=== PATIENT | female | born 1950 | race Caucasian/White ===

== ENCOUNTER 2017-03-12 10:21 | Emergency (ER) | payer BC, MEDICARE ==
[~2017-03-12] VITALS: Ht 157.5 cm; Wt 62.7 kg
[2017-03-12] MEDS ORDERED: SIMV40TA2 PO (10:48)
[2017-03-12] MEDS ORDERED: SERT-155 PO (10:48)
[2017-03-12] MEDS ORDERED: LATA5OPD OU (10:48)
[2017-03-12] MEDS ORDERED: FURO20TA2 PO (10:48)
[2017-03-12] MEDS ORDERED: OMEP20CA3 PO (10:48)
[2017-03-12] MEDS ORDERED: LISI40TAB PO (10:48)
[2017-03-12] MEDS ORDERED: FENO145T PO (10:48)
[2017-03-12] MEDS ORDERED: METO1TAB33 PO (10:48)
[2017-03-12] MEDS ORDERED: METF500T4 PO (10:48)
[2017-03-12] MEDS ORDERED: MECLIZINE 25 MG TABLET PO ONE (11:00)
[2017-03-12] MEDS ORDERED: TETANUS/DIPHTHERIA TOX ADSORB ADULT 0.5ML SYR/VIAL (90714) IM ONE (11:00)
[2017-03-12] MEDS ORDERED: NS 500 ML IV ONE (11:00)
[2017-03-12] MEDS ORDERED: ONDANSETRON 4MG/2ML VIAL (J2405) IV ONE ×2 (11:15→12:15)
--- NOTE | 2017-03-12 11:25 | REP ---
CT of the brain without IV contrast: There are no comparisons. There is no subdural or epidural hematoma. There is no hemorrhage otherwise. There is no edema, mass effect or midline shift. The cortical stripe is unremarkable. There is mild diffuse volume loss. The visualized paranasal sinuses and mastoid air cells are clear. Impression: Negative emergency CT study of the brain. There is no subdural hematoma or other intracranial hemorrhage. There is mild diffuse volume loss. No mass effect or shift. Signed by Obey Tejeda MD 03/12/2017 11:16 A
--- NOTE | 2017-03-12 11:38 | REP ---
CT CERVICAL SPINE WITHOUT CONTRAST: HISTORY: Trauma. There is no acute fracture or subluxation. Disc bulges are present at the C2-3 and C6-7 levels. Disc bulges with associated osteophyte formation are present at the C3-4 through C5-6 levels. There is minimal narrowing of the spinal canal. Uncinate process and/or facet hypertrophy are present at the C2-3 through C7-T1 levels. These findings produce minimal to moderate narrowing of the neural foramina. The C3-4 through C6-7 intervertebral discs are decreased in height consistent with disc degeneration. Calcifications are present in the left tonsil. This is secondary to previous inflammatory disease. Several calcifications are present in the right thyroid lobe. The left thyroid lobe is normal in appearance. Calcified lymph nodes are present in the right internal jugular chain, supraclavicular area and posterior to the right thyroid lobe. IMPRESSION: 1. There is no acute fracture or subluxation. 2. There is cervical spondylosis at the C2-3 through C7-T1 levels. Signed by Peewee Barone MD 03/12/2017 12:13 P
--- NOTE | 2017-03-12 11:42 | REP ---
MAXILLOFACIAL CT WITHOUT CONTRAST: HISTORY: Trauma. Minimal mucosal thickening is present in the ethmoid, frontal and sphenoid sinuses. The remaining sinuses are clear. The osteomeatal units are patent. The middle and inferior nasal turbinates are partially paradoxical. There is yi bullosa of the middle nasal turbinates. There is mild deviation of the nasal septum to the right. A spur is present arising from the right side of the nasal septum. The spur abuts the right inferior nasal turbinate. The cribriform plate, medial cui of the orbits and optic canals are intact. The carotid canals form a segment of the posterolateral cui of the sphenoid sinus. The sphenoid sinus septum inserts into the right internal carotid canal wall. Calcifications are present in the left tonsil. This is secondary to previous inflammatory disease. Calcified lymph nodes are present in the right internal jugular chain. There is no fracture. IMPRESSION: Sinus mucosal thickening as described above. Signed by Peewee Barone MD 03/12/2017 12:14 P
[2017-03-12] MEDS ORDERED: ACETAMINOPHEN TAB 650MG DOSE (2X325MG) PO ONE (12:15)
[2017-03-12 12:23] LABS: BASO % 0.2 % (0.0-1.0); EOS % 0.1 % (0.0-3.0); IMMATURE GRANULOCYTE % 0.5 % (0-0); LYMPH # 0.9 10^3/uL (1.5-4.5); LYMPH % 7.7 % (24.0-44.0); MEAN CORPUSCULAR HEMOGLOBIN 30.5 pg (27.0-33.0); MEAN CORPUSCULAR HGB CONC 33.5 g/dl (32.0-36.5); MONO # 0.6 10^3/uL (0.0-0.8); MONO % 5.3 % (0.0-5.0); NEUTROPHILS # 9.6 10^3/uL (1.8-7.7); NEUTROPHILS % 86.2 % (36.0-66.0); PLATELET COUNT, AUTOMATED 233 10^3/uL (150-450); RED CELL DISTRIBUTION WIDTH 12.3 % (11.5-14.5); WHITE BLOOD COUNT 11.1 10^3/uL (4.0-10.0)
[2017-03-12 12:26] LABS: ADD MANUAL DIFFER NO; DIFF SLIDE NUMBER 203
[2017-03-12 12:54] LABS: ALBUMIN 3.4 GM/DL (3.2-5.2); ALBUMIN/GLOBULIN RATIO 1.36 (1.00-1.93); BILIRUBIN,DIRECT 0.2 MG/DL (0.0-0.2); BILIRUBIN,TOTAL 0.5 MG/DL (0.2-1.0); CALCIUM LEVEL 7.3 MG/DL (8.8-10.2); CREATININE FOR GFR 0.99 MG/DL (0.55-1.02); FREE T4 1.31 NG/DL (0.76-1.46); GLOMERULAR FILTRATION RATE 59.9 (>45); POTASSIUM SERUM 3.6 MEQ/L (3.5-5.1); TOTAL PROTEIN 5.9 GM/DL (6.4-8.2)
[2017-03-12] MEDS ORDERED: MECL-68 PO (15:19)
[2017-03-12 15:27] VITALS: BP 112/51
--- NOTE | 2017-03-13 07:50 | ECGEPIP ---
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
== END 2017-03-12 15:47 | disposition home or self-care (01) ==
LOC: EDBD 10:21 → M ED 10:21
DX: S01.01XA Laceration without foreign body of scalp, initial encounter (principal); H81.399 Other peripheral vertigo, unspecified ear; I10 Essential (primary) hypertension; W01.198A Fall on same level from slipping, tripping and stumbling with subsequent striking against other object, initial encounter; Y92.099 Unspecified place in other non-institutional residence as the place of occurrence of the external cause; Y93.01 Activity, walking, marching and hiking; Y99.9 Unspecified external cause status
CPT/HCPCS: 12001; 70450; 70486; 72125; 80048; 80076; 84439; 84443; 85025; 85730; 90471; 90714; 93005; 93041; 94760; 96361; 96374; 96376; 99285; J2405

== ENCOUNTER → 2017-07-31 | Outpatient (CLI) | payer MEDICARE | LOC: M RAD 14:10 | DX: R05 Cough (principal); R09.89 Other specified symptoms and signs involving the circulatory and respiratory systems | CPT/HCPCS: 71046 ==

== ENCOUNTER 2018-10-02 14:44 | Inpatient (IN) | payer MEDICARE ==
[~2018-10-02] VITALS: Ht 154.9 cm; Wt 60.9 kg
[2018-10-02 06:45] VITALS: BP 100/41
[~2018-10-02 14:44] MED LIST: FENO145T13 PO; FURO20TA2 PO; LATA0.0013 OU; LISI40TA PO; MECL-68 PO; METF500T4 PO; METO1TAB33 PO; OMEP20CA3 PO; SERT-155 PO; SIMV40TA2 PO
[2018-10-02] MEDS ORDERED: ACET-897 PO (15:23)
[2018-10-02 15:40] LABS: BASO # 0.1 10^3/uL (0.0-0.2); BASO % 0.4 % (0.0-1.0); EOS % 0.3 % (0.0-3.0); HEMATOCRIT 39.8 % (36.0-47.0); HEMOGLOBIN 12.7 g/dl (12.0-15.5); LYMPH # 1.8 10^3/uL (1.5-4.5); LYMPH % 15.1 % (24.0-44.0); MEAN CORPUSCULAR HGB CONC 31.9 g/dl (32.0-36.5); MEAN CORPUSCULAR VOLUME 87.7 fl (80.0-96.0); MONO # 0.8 10^3/uL (0.0-0.8); MONO % 6.9 % (0.0-5.0); NEUTROPHILS # 8.8 10^3/uL (1.8-7.7); NEUTROPHILS % 76.4 % (36.0-66.0); PLATELET COUNT, AUTOMATED 342 10^3/uL (150-450); RED BLOOD COUNT 4.54 10^6/uL (4.00-5.40); WHITE BLOOD COUNT 11.6 10^3/uL (4.0-10.0)
[2018-10-02] MEDS ORDERED: NS 1,000 ML IV ONE ×2 (16:00→16:15)
[2018-10-02 16:05] LABS: ALBUMIN 4.8 GM/DL (3.2-5.2); BILIRUBIN,DIRECT 0.2 MG/DL (0.0-0.2); BILIRUBIN,TOTAL 0.5 MG/DL (0.2-1.0); CALCIUM LEVEL 6.5 MG/DL (8.8-10.2); CREATININE FOR GFR 11.4 MG/DL (0.55-1.30); GLOMERULAR FILTRATION RATE 3.6 (>45); POTASSIUM SERUM 5.5 MEQ/L (3.5-5.1); TOTAL PROTEIN 7.8 GM/DL (6.4-8.2)
[2018-10-02] MEDS ORDERED: ACETAMINOPHEN TAB 650MG DOSE (2X325MG) PO ONE (16:45)
[2018-10-02] MEDS ORDERED: XALA0.007 OU (17:08)
[2018-10-02] MEDS ORDERED: METO200T28 PO (17:08)
[2018-10-02] MEDS ORDERED: ASPI81TA85 PO (17:10)
[2018-10-02] MEDS ORDERED: VITAD1000T PO (17:10)
[2018-10-02] MEDS ORDERED: C 50TAB PO (17:10)
[2018-10-02] MEDS ORDERED: GLUCAGON FOR INJ 1 MG VIAL (J1610) SC PRN (17:45)
[2018-10-02] MEDS ORDERED: DEXTROSE 50% 50 ML SYRINGE IV PRN (17:45)
[2018-10-02] MEDS ORDERED: GLUCOSE 4 GM CHEW TABLET PO PRN (17:45)
--- NOTE | 2018-10-02 18:00 | HPEPDOC ---
General Date of Admission Oct 02, 2018 at 17:07 Chief Complaint The patient is a 68-year-old female admitted with a reason for visit of Acute R enal Failure. History of Present Illness 68-year-old female with past medical history of hypertension, diabetes mellitus, dyslipidemia, GERD, and chronic lower extremity edema on diuretic therapy presents to the ER with a chief complaint of abdominal pain, nausea/vomiting/diarrhea, and weakness. The patient states that for the past 10 days she has been having intractable nausea/vomiting/diarrhea. She denies any fevers, chills, sick contacts, recent antibiotic use, hospitalization, or recent travel. Of note, the patient states that she continued to take her diuretic therapy, lisinopril, and metformin during this time while she was having diarrhea. Also of note, the patient states that she was recently 3 weeks ago started on spironolactone by her PCP, but notes that she stopped taking it approximately 2 weeks ago due to the diarrhea. In the ER, the patient was noted to be in acute renal failure. She will be admitted to the hospitalist service, and a consult has been placed to nephrology for further evaluation and management. Home Medications Scheduled Ascorbic Acid (Vitamin C) 500 Mg Tablet, 500 MG PO DAILY, (Reported) Aspirin (Aspir 81) 81 Mg Tablet.dr, 81 MG PO DAILY, (Reported) Fenofibrate Nanocrystallized (Fenofibrate) 145 Mg Tab, 145 MG PO DAILY, (Reported) Furosemide (Furosemide) 20 Mg Tab, 20 MG PO DAILY, (Reported) Latanoprost (Xalatan) 0.005% 2.5ML Drops, 1 DROP OU QHS, (Reported) Lisinopril (Lisinopril) 40 Mg Tab, 40 MG PO DAILY, (Reported) Metformin HCl (Metformin HCl ER) 500 Mg Tab, 1,000 MG PO BID, (Reported) Metoprolol Succinate (Metoprolol Succinate) 200 Mg Tab.er.24h, 200 MG PO QHS, (Reported) Omeprazole (Omeprazole) 20 Mg Cap, 20 MG PO DAILY, (Reported) Sertraline HCl (Sertraline HCl) 50 Mg Tab, 50 MG PO QHS, (Reported) Simvastatin (Simvastatin) 40 Mg Tab, 40 MG PO QHS, (Reported) Vitamin D (Vitamin D3) 1,000 Unit Tablet, 1,000 UNITS PO DAILY, (Reported) Scheduled PRN Acetaminophen (Tylenol Extra Strength) 500 Mg Tablet, 500 MG PO Q6H PRN for PAIN, (Reported) Allergies Coded Allergies: azithromycin (Verified Allergy, Unknown, 10/02/18) BREAKOUT Past Medical History Medical History As noted in HPI. Social History * Smoker: Denies Alcohol: Denies Drugs: denies A-FIB/CHADSVASC A-FIB History Current/History of A-Fib/PAF?: No Review of Systems Other systems 10 point review systems negative unless otherwise specified in HPI. Physical Examination General Exam: Positive: Alert, Cooperative, No Acute Distress ENT Exam: Positive: Atraumatic; Negative: Mucous membr. moist/pink (dry mucous membranes) Neck Exam: Negative: JVD Chest Exam: Positive: Clear to auscultation, Normal air movement Heart Exam: Positive: Rate Normal, Normal S1, Normal S2 Abdomen Exam: Positive: Soft, Tenderness (mild tenderness to deep palpation in the lower quadrants bilaterally. No rebound tenderness, guarding, or rigidity noted.) Extremity Exam: Negative: Tenderness Psych Exam: Positive: Oriented x 3 Vital Signs Vital Signs Date Time Temp Pulse Resp B/P (MAP) Pulse Ox O2 Delivery O2 Flow Rate FiO2 10/02/18 15:24 10/02/18 14:44 96.5 83 18 100 Room Air Laboratory Data Labs 24H Laboratory Tests 2 10/02/18 15:28: Immature Granulocyte % (Auto) 0.9, White Blood Count 11.6H, Red Blood Count 4.54, Hemoglobin 12.7, Hematocrit 39.8, Mean Corpuscular Volume 87.7, Mean Corpuscular Hemoglobin 28.0, Mean Corpuscular Hemoglobin Concent 31.9L, Red Cell Distribution Width 14.1, Platelet Count 342, Neutrophils (%) (Auto) 76.4H, Lymphocytes (%) (Auto) 15.1L, Monocytes (%) (Auto) 6.9H, Eosinophils (%) (Auto) 0.3, Basophils (%) (Auto) 0.4, Neutrophils # (Auto) 8.8H, Lymphocytes # (Auto) 1.8, Monocytes # (Auto) 0.8, Eosinophils # (Auto) 0.0, Basophils # (Auto) 0.1, Nucleated Red Blood Cells % (auto) 0.0, Anion Gap 18H, Glomerular Filtration Rate 3.6L, Calcium Level 6.5L, Aspartate Amino Transf (AST/SGOT) 33, Alanine Aminotransferase (ALT/SGPT) 28, Alkaline Phosphatase 45, Total Bilirubin 0.5, Direct Bilirubin 0.2, Total Creatine Kinase 383H, Total Protein 7.8, Albumin 4.8, Albumin/Globulin Ratio 1.60, Lipase 2265H 10/02/18 17:28: CBC/BMP Laboratory Tests 10/02/18 15:28 Red Blood Count 4.54, Mean Corpuscular Volume 87.7, Mean Corpuscular Hemoglobin 28.0, Mean Corpuscular Hemoglobin Concent 31.9 L, Red Cell Distribution Width 14.1, Neutrophils (%) (Auto) 76.4 H, Lymphocytes (%) (Auto) 15.1 L, Monocytes (%) (Auto) 6.9 H, Eosinophils (%) (Auto) 0.3, Basophils (%) (Auto) 0.4, Neutrophils # (Auto) 8.8 H, Lymphocytes # (Auto) 1.8, Monocytes # (Auto) 0.8, Eosinophils # (Auto) 0.0, Basophils # (Auto) 0.1 Microbiology Microbiology 10/02/18 Gastrointestinal Tract Panel (PCR), Received Pending Plan / VTE VTE Prophylaxis Ordered?: Yes Plan Plan Acute Renal Failure 2/2 Intractable N/V/D while concomitantly on NEREIDA- I/Metformin/Diuretic Therapy Serum Cr of 11 noted in the ER--patient denies history of underlying Kidney Disease. Serum Cr from 03/2017 was 0.99. We will hold Nephrotoxins CT Abd/Pel with no gross abnormalities of the Kidneys noted, we will await official report Renal U/S, Urine Lytes, UA ordered IVF Hydration ordered with Sodium Bicarbonate 150 meq as per Nephro We will repeat a BMP @ 10pm to follow up No acute indication for dialysis at this time as the patient is not volume overloaded, uremic, etc Nephrology on board Anion-gap Metabolic Acidosis 2/2 Acute Renal Failure, Diarrhea D5W/150 Meqs of Sodium Bicarb ordered We will repeat BMP @ 10pm Hyperkalemia 2/2 Above No EKG changes noted We will follow up Elevated Lipase Possibly underlying Pancreatitis vs Reactive--CT Abd/Pel pending Cont IVF Hydration as ordered We will follow up with the patient's clinical condition Diarrhea GI Panel ordered to r/o C. Diff We will follow up with CT Abd/Pel Leukocytosis likely Reactive Will hold off on any antibiotics at this time Diabetes Mellitus ISS ordered HTN Hold meds at this time 2/2 ARF Anxiety/Depression Cont Sertraline DVT Prophylaxis Heparin TERI HURST MD Oct 02, 2018 18:00
[2018-10-02 18:45] VITALS: BP 100/41
[2018-10-02] MEDS: SERTRALINE HCL 50 MG TAB PO SCH (19:52)
[2018-10-02] MEDS: HEPARIN SOD (PORCINE) 5000 UNITS/ML VIAL SC SCH (19:52)
--- NOTE | 2018-10-02 20:00 | ECGEPIP ---
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 Order Number: [id number] Reading MD: Rica Sifuentes Measurements Intervals [place] Rate: 79 P: 53 ME: 131 QRS: 39 QRSD: 125 T: 30 QT: 401 QTc: 461 Interpretive Statements SINUS RHYTHM RIGHT BUNDLE BRANCH BLOCK NEW 03/12/17 Electronically Signed On 10-02-2018 20:00:24 EDT by Rica Sifuentes
[2018-10-02] MEDS: SODIUM BICARBONATE 150 MEQ in D5W 1,000 ML IV SCH (20:02)
[2018-10-02] MEDS: HumaLOG INSULIN (NovoLOG) PER UNIT SC SCH (20:04)
[2018-10-02] MEDS ORDERED: CALCIUM GLUCONATE 1,000 MG in D5W MINI-BAG PLUS 100 ML IV ONE (20:15)
[2018-10-02 22:38] LABS: ALBUMIN 3.5 GM/DL (3.2-5.2); BILIRUBIN,TOTAL 0.4 MG/DL (0.2-1.0); CALCIUM LEVEL 5.5 MG/DL (8.8-10.2); CREATININE FOR GFR 11.3 MG/DL (0.55-1.30); GLOMERULAR FILTRATION RATE 3.6 (>45); POTASSIUM SERUM 5.1 MEQ/L (3.5-5.1); TOTAL PROTEIN 6.8 GM/DL (6.4-8.2)
[2018-10-02] MEDS ORDERED: CALCIUM CARBONATE 500 MG CHEW U/D PO ONE (23:30)
[2018-10-02 23:59] VITALS: BP 110/53
[2018-10-03] MEDS: CALCIUM GLUCONATE 1,000 MG in D5W MINI-BAG PLUS 100 ML IV SCH ×3 (01:00)
[2018-10-03 04:00] VITALS: BP 119/52
[2018-10-03 06:03] LABS: MEAN CORPUSCULAR HEMOGLOBIN 27.9 pg (27.0-33.0); MEAN CORPUSCULAR HGB CONC 32.1 g/dl (32.0-36.5); MEAN CORPUSCULAR VOLUME 86.8 fl (80.0-96.0); PLATELET COUNT, AUTOMATED 233 10^3/uL (150-450); WHITE BLOOD COUNT 10.8 10^3/uL (4.0-10.0)
[2018-10-03 06:07] LABS: HEMOGLOBIN 10.6 g/dl (12.0-15.5)
[2018-10-03 06:46] LABS: ALBUMIN 3.5 GM/DL (3.2-5.2); BILIRUBIN,TOTAL 0.5 MG/DL (0.2-1.0); CALCIUM LEVEL 6.4 MG/DL (8.8-10.2); CREATININE FOR GFR 11.4 MG/DL (0.55-1.30); GLOMERULAR FILTRATION RATE 3.6 (>45); MAGNESIUM LEVEL 0.3 MG/DL (1.8-2.4); POTASSIUM SERUM 4.3 MEQ/L (3.5-5.1); TOTAL PROTEIN 6.7 GM/DL (6.4-8.2)
[2018-10-03] MEDS ORDERED: MAGNESIUM OXIDE 400 MG TAB (MAG-OX) PO ONE (07:00)
--- NOTE | 2018-10-03 07:23 | REP ---
CT ABDOMEN AND PELVIS WITHOUT IV OR ORAL CONTRAST: HISTORY: Renal failure. Elevated lipase. 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 The lung bases are clear on axial CT images. There is no evidence of pleural effusion or upper abdominal ascites. The liver and the spleen are normal in size. Vascular calcification is noted. There are calcifications in the pancreatic head suggestive of chronic pancreatitis pattern. No cyst or mass lesion is seen. No retroperitoneal adenopathy is observed. There is extensive calcific plaquing of the abdominal aorta which is small. I suspect aortic stenosis. The common iliac arteries are quite small as well and show extensive calcific plaquing suggesting stenosis. The kidneys are morphologically intact. No retroperitoneal mass or adenopathy is seen. No obstructive gastrointestinal lesion is seen. There is a calcified uterine myoma seen. The calcification associated with this is 1.5 cm in diameter. No bladder lesion is seen. No other uterine mass is observed. No ovarian abnormality is seen. No abdominal wall defect is appreciated. There is a polypoid fat density lesion in the ascending colon consistent with a small benign colon lipoma. This measures 1.4 x 0.9 x 2.4 cm in diameter. The appendix is surgically absent. IMPRESSION: The kidneys are unremarkable. No evidence of obstruction. There is heavy vascular calcification in a diminutive abdominal aorta and common iliac arteries consistent with atherosclerotic disease with stenosis. There is a lipomas polyp of the ascending colon measuring 2.4 cm in greatest diameter noted incidentally. A densely calcified uterine myoma is noted as well. Electronically Signed by Eladio Alcala MD 10/03/2018 08:53 A
[2018-10-03] MEDS: MAG SULF 1GM/100ML (MAG RUN) 1 GM in APPROPRIATE DILUENT 1 EA IV SCH ×5 (07:27→16:50)
[2018-10-03 07:33] VITALS: BP 107/47
--- NOTE | 2018-10-03 07:45 | REPVR ---
EXAM: US Retroperitoneal Limited, Kidneys EXAM DATE/TIME: 10/03/2018 6:37 AM CLINICAL HISTORY: 68 years old, female; acute renal failure TECHNIQUE: Imaging protocol: Real-time ultrasound of the retroperitoneum with image documentation. Examination was focused on the kidneys. COMPARISON: CT ABD PELVIS W/O CONTRAST 10/02/2018 4:36 PM The report from this study was not available for review at the time of this interpretation. FINDINGS: Right kidney: The right kidney is normal in appearance and measures 12.8 cm x 5.5 cm x 6.1 cm. There is no renal cortical thinning. The renal cortical echogenicity is within normal limits. No renal lesion is seen. There is no hydronephrosis. No obvious stones are seen in the renal collecting system. Left kidney: The left kidney measures 13.4 cm x 4.5 cm x 6.8 cm. There is no renal cortical thinning. The renal cortical echogenicity is within normal limits. There is a 7 mm x 5 mm x 8 mm round echogenic lesion without internal vascularity in the cortex of the middle third of the left kidney, which is compatible with an angiomyolipoma on comparison with the CT scan on 10/02/2018. There is no hydronephrosis. No obvious stones are seen in the renal collecting system. Bladder: The partially distended urinary bladder is unremarkable. IMPRESSION: 1. No acute sonographic findings involving the kidneys. No hydronephrosis. 2. 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 Electronically signed by: Magen Woodson On 10/03/2018 07:45:28 AM
[2018-10-03 08:29] LABS: CHOLESTEROL LEVEL 153 MG/DL (<200); CHOLESTEROL RISK RATIO 6.954 (<5); HDL CHOLESTEROL 22 MG/DL (>40); HEMOGLOBIN A1c 6.9 %; NON-HDL-C 131 MG/DL; TRIGLYCERIDES LEVEL 566 MG/DL (<150)
[2018-10-03] MEDS ORDERED: VITAMIN D 1,000 INTERNATIONAL UNITS TABLET PO SCH (09:00)
[2018-10-03] MEDS: HEPARIN SOD (PORCINE) 5000 UNITS/ML VIAL SC SCH ×2 (09:31→20:43)
[2018-10-03] MEDS: ASPIRIN 81 MG ENTERIC TAB PO SCH (09:32)
[2018-10-03] MEDS: HumaLOG INSULIN (NovoLOG) PER UNIT SC SCH ×4 (09:32→20:43)
[2018-10-03 11:43] VITALS: BP 122/56
--- NOTE | 2018-10-03 11:51 | IPNPDOC ---
Subjective Date Seen The patient was seen on 10/03/18. Subjective Chief Complaint/HPI Patient seen and examined at the bedside. She reports that she feels better overall and does not have anymore abdominal pain or discomfort. She also tells me that her appetite is back. Though, she continues to endorse several episodes of diarrhea. Denies N/V. She also notes that she has not made much urine since being admitted. Objective Physical Examination General Exam: Positive: Alert, Cooperative, No Acute Distress ENT Exam: Positive: Atraumatic, Mucous membr. moist/pink Neck Exam: Negative: JVD Chest Exam: Positive: Clear to auscultation, Normal air movement Heart Exam: Positive: Rate Normal, Normal S1, Normal S2 Abdomen Exam: Positive: Soft; Negative: Tenderness Extremity Exam: Negative: Tenderness Psych Exam: Positive: Oriented x 3 Assessment /Plan Plan/VTE VTE Prophylaxis Ordered?: Yes Plan Acute Renal Failure 2/2 Intractable N/V/D while concomitantly on NEREIDA- I/Metformin/Diuretic Therapy Patient's Serum Cr remains elevated at 11.40, and she has not made any urine. Her serum potassium has come down, and her Calcium and Magnesium levels are being replaced. CT Abd/Pel and Renal U/S with no findings of obstruction Cont IVF Nephro on board for possible dialysis Non Anion-gap Metabolic Acidosis 2/2 Acute Renal Failure, Diarrhea D5W/150 Meqs of Sodium Bicarb IVF Hyperkalemia 2/2 Above, resolved Elevated Lipase Possibly underlying Pancreatitis vs Reactive--CT Abd/Pel pending Cont IVF Hydration as ordered We will follow up with the patient's clinical condition Diarrhea GI Panel negative Leukocytosis likely Reactive Will hold off on any antibiotics at this time Diabetes Mellitus ISS ordered HTN Hold meds at this time 2/2 ARF Anxiety/Depression Cont Sertraline DVT Prophylaxis Heparin SC Dispo--pending clinical improvement VS, I&O, 24H, Fishbone Vital Signs/I&O Vital Signs Date Time Temp Pulse Resp B/P (MAP) Pulse Ox O2 Delivery O2 Flow Rate FiO2 10/03/18 07:33 96.6 77 18 107/47 (67) 99 10/02/18 14:44 Room Air I&O- Last 24 Hours up to 6 AM 10/03/18 06:00 Intake Total 0 ml Balance 0 ml Laboratory Data 24H LABS Laboratory Tests 2 10/02/18 15:28: Immature Granulocyte % (Auto) 0.9, White Blood Count 11.6H, Red Blood Count 4.54, Hemoglobin 12.7, Hematocrit 39.8, Mean Corpuscular Volume 87.7, Mean Corpuscular Hemoglobin 28.0, Mean Corpuscular Hemoglobin Concent 31.9L, Red Cell Distribution Width 14.1, Platelet Count 342, Neutrophils (%) (Auto) 76.4H, Lymphocytes (%) (Auto) 15.1L, Monocytes (%) (Auto) 6.9H, Eosinophils (%) (Auto) 0.3, Basophils (%) (Auto) 0.4, Neutrophils # (Auto) 8.8H, Lymphocytes # (Auto) 1.8, Monocytes # (Auto) 0.8, Eosinophils # (Auto) 0.0, Basophils # (Auto) 0.1, Nucleated Red Blood Cells % (auto) 0.0, Anion Gap 18H, Glomerular Filtration Rate 3.6L, Calcium Level 6.5L, Aspartate Amino Transf (AST/SGOT) 33, Alanine Aminotransferase (ALT/SGPT) 28, Alkaline Phosphatase 45, Total Bilirubin 0.5, Direct Bilirubin 0.2, Total Creatine Kinase 383H, Total Protein 7.8, Albumin 4.8, Albumin/Globulin Ratio 1.60, Lipase 2265H 10/02/18 17:28: Lactic Acid Level 0.4 10/02/18 20:04: Bedside Glucose (Misc Panel) 81 10/02/18 21:57: Anion Gap 16, Glomerular Filtration Rate 3.6L, Calcium Level 5.5#*L, Aspartate Amino Transf (AST/SGOT) 31, Alanine Aminotransferase (ALT/SGPT) 27, Alkaline P hosphatase 37L, Total Bilirubin 0.4, Total Protein 6.8, Albumin 3.5#, Albumin/Globulin Ratio 1.06, Blood Urea Nitrogen 93H, Creatinine 11.30*H, Sodium Level 138, Potassium Level 5.1, Chloride Level 113H, Carbon Dioxide Level 9L 10/03/18 05:30: Nucleated Red Blood Cells % (auto) 0.0, Anion Gap 16, Glomerular Filtration Rate 3.6L, Blood Urea Nitrogen 93H, Creatinine 11.40*H, Sodium Level 138, Potassium Level 4.3, Chloride Level 110H, Carbon Dioxide Level 12L, Calcium Level 6.4#L, Aspartate Amino Transf (AST/SGOT) 32, Alanine Aminotransferase (ALT/SGPT) 27, Alkaline Phosphatase 37L, Total Bilirubin 0.5, Total Protein 6.7, Albumin 3.5, Magnesium Level 0.3*L, Albumin/Globulin Ratio 1.09 10/03/18 07:55: Estimated Mean Plasma Glucose 151H, Hemoglobin A1c 6.9, Triglycerides Level 566H, LDL Cholesterol , Total Cholesterol 153, Non-HDL Cholesterol (LDL + VLDL) 131, Total HDL Cholesterol 22L, Cholesterol/HDL Ratio 6.954H CBC/BMP Laboratory Tests 10/02/18 15:28 Red Blood Count 4.54, Mean Corpuscular Volume 87.7, Mean Corpuscular Hemoglobin 28.0, Mean Corpuscular Hemoglobin Concent 31.9 L, Red Cell Distribution Width 14.1, Neutrophils (%) (Auto) 76.4 H, Lymphocytes (%) (Auto) 15.1 L, Monocytes (%) (Auto) 6.9 H, Eosinophils (%) (Auto) 0.3, Basophils (%) (Auto) 0.4, Neutrophils # (Auto) 8.8 H, Lymphocytes # (Auto) 1.8, Monocytes # (Auto) 0.8, Eosinophils # (Auto) 0.0, Basophils # (Auto) 0.1 10/02/18 21:57 Calcium Level 5.5 #*L, Aspartate Amino Transf (AST/SGOT) 31, Alanine Aminotransferase (ALT/SGPT) 27, Alkaline Phosphatase 37 L, Total Bilirubin 0.4, Total Protein 6.8, Albumin 3.5 # 10/03/18 05:30 Red Blood Count 3.80 L, Mean Corpuscular Volume 86.8, Mean Corpuscular Hemoglob in 27.9, Mean Corpuscular Hemoglobin Concent 32.1, Red Cell Distribution Width 14.0, Calcium Level 6.4 #L, Aspartate Amino Transf (AST/SGOT) 32, Alanine Aminotransferase (ALT/SGPT) 27, Alkaline Phosphatase 37 L, Total Bilirubin 0.5, Total Protein 6.7, Albumin 3.5 Microbiology Microbiology 10/02/18 Gastrointestinal Tract Panel (PCR) - Final, Complete TERI SOTELO MD Oct 03, 2018 11:51
[2018-10-03 12:33] LABS: IONIZED CALCIUM 3.3 MG/DL (4.5-5.3)
[2018-10-03] MEDS ORDERED: CALCIUM GLUCONATE 1,000 MG in D5W MINI-BAG PLUS 100 ML IV ONE (13:00)
[2018-10-03 14:42] LABS: PHOSPHORUS LEVEL 8.7 MG/DL (2.5-4.9)
[2018-10-03 16:00] VITALS: BP 103/43
[2018-10-03] MEDS: SODIUM BICARBONATE 150 MEQ in D5W 1,000 ML IV SCH (16:50)
[2018-10-03] MEDS: ACETAMINOPHEN TAB 650MG DOSE (2X325MG) PO PRN (16:52)
[2018-10-03 18:40] LABS: ALBUMIN 3.3 GM/DL (3.2-5.2); CALCIUM LEVEL 6.1 MG/DL (8.8-10.2); CREATININE FOR GFR 11.1 MG/DL (0.55-1.30); GLOMERULAR FILTRATION RATE 3.7 (>45)
[2018-10-03 20:00] VITALS: BP 97/39
[2018-10-03] MEDS: CALCIUM ACETATE 667 MG GELCAP PO SCH (20:42)
[2018-10-03] MEDS: SERTRALINE HCL 50 MG TAB PO SCH (20:42)
[2018-10-03 23:39] VITALS: BP 116/45
[2018-10-04] VITALS (7 sets, daily range): BP systolic 102–131; BP diastolic 51–62
[2018-10-04] MEDS: SODIUM BICARBONATE 150 MEQ in D5W 1,000 ML IV SCH (00:12)
[2018-10-04] MEDS: LOPERAMIDE 2 MG CAP PO PRN ×2 (00:45→15:20)
[2018-10-04 06:25] LABS: HEMOGLOBIN 8.7 g/dl (12.0-15.5); MEAN CORPUSCULAR HEMOGLOBIN 28.3 pg (27.0-33.0); MEAN CORPUSCULAR HGB CONC 34.8 g/dl (32.0-36.5); MEAN CORPUSCULAR VOLUME 81.4 fl (80.0-96.0); PLATELET COUNT, AUTOMATED 180 10^3/uL (150-450); RED BLOOD COUNT 3.07 10^6/uL (4.00-5.40); WHITE BLOOD COUNT 4.8 10^3/uL (4.0-10.0)
[2018-10-04] MEDS: HumaLOG INSULIN (NovoLOG) PER UNIT SC SCH ×4 (07:30→20:57)
[2018-10-04 07:59] LABS: BILIRUBIN,TOTAL 0.6 MG/DL (0.2-1.0); GLOMERULAR FILTRATION RATE 4.1 (>45); POTASSIUM SERUM 3.6 MEQ/L (3.5-5.1); TOTAL PROTEIN 5.6 GM/DL (6.4-8.2)
[2018-10-04] MEDS: CALCIUM ACETATE 667 MG GELCAP PO SCH ×3 (08:00→18:38)
[2018-10-04 08:37] LABS: MAGNESIUM LEVEL 1.9 MG/DL (1.8-2.4)
[2018-10-04] MEDS ORDERED: LIDOCAINE 1% MDV 20ML VIAL As Ordered ONE (09:16)
[2018-10-04] MEDS ORDERED: BUPIVACAINE HCL 0.5% 10 ML VIAL As Ordered ONE (09:16)
[2018-10-04] MEDS ORDERED: HEPARIN SOD (PORCINE) 5000 UNITS/ML VIAL As Ordered ONE (09:17)
[2018-10-04] MEDS ORDERED: PROPOFOL 200 MG/20 ML VIAL As Ordered ONE (10:01)
[2018-10-04] MEDS ORDERED: MIDAZOLAM INJ 2 MG/2 ML VIAL (J2250) As Ordered ONE (10:01)
[2018-10-04] MEDS ORDERED: fentaNYL 100 MCG/2 ML INJECTION (J3010) As Ordered ONE (10:01)
--- NOTE | 2018-10-04 10:06 | ECHO ---
DATE OF STUDY: 10/03/2018 REFERRING PROVIDER: Jay Avery MD PATIENT LOCATION: Room 3228. REASON FOR THE ECHOCARDIOGRAM: Heart failure, unspecified. 2D MEASUREMENTS: IVS: 0.9 cm LV: 4.7 cm LVPW: 1.0 cm LA: 3.1 cm Aorta: 3.0 cm IVC: 1.6 cm DOPPLER MEASUREMENTS: Peak velocity across the aortic valve: 2.3 m/s Peak velocity across the LVOT: 1.6 m/s Peak gradient across the aortic valve: 22 mmHg Mean gradient across the aortic valve: 9 mmHg Mitral E: 0.87 Mitral A: 0.97 with a ratio of 0.9 Maximum tricuspid valve velocity: 2.9 m/s 2D COMMENTS: 1. Normal left ventricular size, wall thickness, and normal global left ventricular systolic function with a hyperdynamic left ventricle. The estimated left ventricular systolic ejection fraction is 70% to 75%. 2. Normal left atrium. Normal right atrium and right ventricle. 3. The atrial septum appeared to be normal without evidence of defect or shunt. 4. Normal aortic root. 5. Small pericardial effusion noted. No evidence of cardiac tamponade. 6. Calcified aortic valve was noted with probably minimally restricted leaflet motion. Could not rule out prior vegetations on the aortic valve. Could not rule out old vegetations on the aortic valve. Normal mitral valve, tricuspid valve, and pulmonic valve. The proximal pulmonary artery branches were not visualized. 7. The inferior vena cava was normal in size, central venous pressure is most likely normal. DOPPLER: It detects trace aortic regurgitation, trace to mild tricuspid regurgitation, and trace to mild pulmonic regurgitation. The calculated pulmonary artery systolic pressure varied between 30-40 mmHg. Abnormal relaxation pattern was noted across the mitral valve leaflets, as well as mitral valve anulus consistent with a delayed relaxation. IMPRESSION: 1. Normal global left ventricular systolic function with a hyperdynamic left ventricle. There are features of left ventricular diastolic dysfunction manifested by impaired relaxation. 2. Aortic valve sclerosis with trace aortic regurgitation and mild aortic stenosis. Could not rule out old vegetations on the aortic valve. 3. Trace mitral regurgitation. 4. Trace to mild tricuspid regurgitation with mild pulmonary hypertension. 5. Trace to small pericardial effusion noted, no evidence of cardiac tamponade. [facility]
[2018-10-04] MEDS ORDERED: ePHEDrine SULFATE 25 MG/5 ML(5MG/ML) SYRINGE As Ordered ONE (10:07)
[2018-10-04] MEDS ORDERED: ONDANSETRON 4MG/2ML VIAL (J2405) IV PRN (10:45)
[2018-10-04] MEDS ORDERED: fentaNYL 100 MCG/2 ML INJECTION (J3010) IV PRN (10:45)
[2018-10-04] MEDS: HEPARIN SOD (PORCINE) 5000 UNITS/ML VIAL SC SCH ×2 (11:50→20:57)
[2018-10-04] MEDS: ASPIRIN 81 MG ENTERIC TAB PO SCH (11:50)
[2018-10-04 12:12] LABS: PERCENT SATURATION 36.6 % (13.2-45.0)
--- NOTE | 2018-10-04 13:53 | CR ---
DATE OF CONSULTATION: 10/03/2018 REQUESTING PHYSICIAN: Dr. Jay Avery. REASON FOR CONSULTATION: Management of acute renal failure, metabolic acidosis and multiple electrolyte abnormalities. CHIEF COMPLAINT: The patient presented to the hospital with nausea, vomiting and diarrhea. HISTORY OF PRESENT ILLNESS: Latasha Lawton is a 68-year-old female with a past medical history of diabetes mellitus type 2, hypertension, chronic lower extremity edema. No significant past medical history of chronic kidney disease. She has a baseline creatinine of 0.9 as of 09/08/2016 in the hospital records. She presented to the hospital yesterday with intractable nausea, vomiting and diarrhea for almost 10 days. She denies any fevers and chills. She denies any dysuria or hematuria. She does report decreased urine output. The patient reports that almost 2 months ago, she was started on spironolactone for her lower extremity edema and ever since she was started on spironolactone she has not felt better. The patient was also receiving lisinopril, metformin furosemide. When patient was evaluated in the emergency room, she was found to be dry and dehydrated. She was in acute renal failure with a creatinine of 11.4. She was acidotic with a serum bicarbonate of 11 and a serum potassium of 5.5. The case was already discussed by the admitting physician yesterday with the on-call mowing machine operator. The decision was made to initially hydrate the patient and start the patient on IV bicarb fluids. Patient was admitted under the hospitalist service and nephrology service is seeing the patient for further management of renal failure and electrolyte abnormalities. I saw and evaluated the patient this morning at the bedside. The patient reports that since the time she came to the hospital about the IV fluids, she sees slightly better today as compared with yesterday. Her nausea and vomiting is better but she still continues to have loose stools at this point. There is no significant improvement in the renal function and the patient continues to be oliguric. PAST MEDICAL HISTORY: Past medical history of diabetes mellitus type 2. Hypertension. Hyperlipidemia. Lower extremity edema. PAST SURGICAL HISTORY: The patient reports history of appendectomy in the past. ALLERGIES: She is allergic to AZITHROMYCIN. FAMILY HISTORY: No significant family history of end-stage renal disease requiring hemodialysis. SOCIAL HISTORY: The patient is at home. She denies any illicit drug abuse or alcohol abuse. She does report history of smoking. REVIEW OF SYSTEMS: CONSTITUTIONAL: Patient reports feeling weak and tired. EYES: She denies any blurry vision, double vision. ENT: She denies any dysphagia or odynophagia CARDIOVASCULAR: She denies any chest pain or palpitation. RESPIRATORY: She denies any shortness of breath, cough or wheezing. GENITOURINARY (GI): She reports nausea, vomiting on arrival. She does report that to stools as well. GENITOURINARY: She reports decreased urine output. MUSCULOSKELETAL: She denies any muscle aches and pains. SKIN: She denies any rashes or ulcers. CENTRAL NERVOUS SYSTEM (CHAIR FINISHER): She denies any strokes of seizures HEMATOLOGY/ONCOLOGY: Denies any easy bleeding or bruising. ENDOCRINE: She does report history of diabetes mellitus type 2. All other review of systems is negative. PHYSICAL EXAMINATION: GENERAL: The patient is awake, alert, oriented times three laying in bed. VITAL SIGNS: Temperature is 97.3 degrees Fahrenheit. Blood pressure 103/43, pulse is 94, respiratory rate of 20, saturating 100% on room air. HEAD AND NECK EXAM: Extraocular muscles intact. Pupils are equally round and reactive to light. Mucous membranes are moist. Neck is supple. There is no jugular venous distention (JVD). CARDIOVASCULAR: S1, S2 regular rate. No edema of the bilateral lower extremities. RESPIRATORY: Chest is clear to auscultation bilaterally. Bilateral equal air entry. No rales or rhonchi. ABDOMEN: Soft. Hyperactive bowel sounds, nontender, nontender. No organomegaly. GENITOURINARY: Bladder is non palpable. Bedside bladder scan was done. There was less than 50 mL of urine. MUSCULOSKELETAL: No clubbing or cyanosis. Pulses are 2+. CENTRAL NERVOUS SYSTEM (CHAIR FINISHER): No focal deficits. Power is 5/5 in all extremities. SKIN: No rashes or ulcers. HOME MEDICATIONS: Patient home medications included: - vitamin C 500 mg by mouth daily - aspirin 81 mg daily - fenofibrate 145 mg daily - Lasix 20 mg by mouth daily. - She will also on spironolactone but she stopped taking it few days ago because of diarrhea. - She is on lisinopril 40 mg daily - metformin 1 gram by mouth twice a day - metoprolol succinate 200 mg by mouth daily - omeprazole 20 mg daily - sertraline 50 mg by mouth daily - simvastatin 40 mg daily - vitamin D 1000 units by mouth daily CURRENT INPATIENT MEDICATIONS: The patient's inpatient medications include: - IV calcium gluconate. - She is on IV sodium bicarbonate drip at 100 mL an hour. - She is getting IV magnesium sulfate - Tylenol as needed - aspirin 81 mg daily - heparin subcu - insulin sliding scale - Zoloft 50 mg by mouth daily - vitamin D which I have stopped at this point. LAB REVIEW: CBC showed WBC of 10.8, hemoglobin 10.6, platelets 233. Urinalysis showed it was cloudy, 1+ protein, no blood, 6 WBCs. Random creatinine was 376. BMP on arrival showed sodium 137, potassium 5.5, chloride 108, bicarb 11, BUN 99, creatinine 11.4, lactic acid 0.4, calcium of 6.5, albumin 4.8, lipase 2265. Repeat BMP today in the evening showed sodium 136, potassium 4 chloride 106, bicarbonate 12, BUN 90, creatinine is 11.1, calcium 6.1, ionized calcium 3.3, phosphorus 8, magnesium 1, albumin 3.3. Microbiology: GI panel was sent yesterday. It was negative. IMAGING: Renal ultrasound was done this morning, which showed no acute sonographic finding involving the kidneys. There was no hydronephrosis. 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 CT scan of the abdomen and pelvis was done yesterday which showed the kidneys are unremarkable. There is heavy calcification in the abdominal aorta and common iliac arteries. ASSESSMENT: 68-year-old female with history of hypertension, diabetes mellitus type 2 this admission with acute renal failure, high anion gap metabolic acidosis, hyperkalemia and diarrhea. PLAN: 1. Acute renal failure: According to our records in March 2017, her renal function was stable. Acute renal failure is most likely secondary to combination of diarrhea, use of angiotensin converting enzyme inhibitors (NEREIDA), metformin and diuretics at home. The patient was hydrated overnight. However, she continues to be oliguric. I do not seen any significant improvement of the renal function. If the patient does not start making urine but tomorrow morning, then I will get a catheter placed and start the patient on dialysis. 2. High anion gap metabolic acidosis: It is secondary to combination of diarrhea and renal failure. The patient is getting IV bicarb containing fluid at 100 mL an hour. If renal function does not improve then acidosis will be managed with hemodialysis. Continue the bicarb fluids at this point. 3. Hyperkalemia: It is secondary to renal failure and metabolic acidosis. Potassium level has improved after the administration of IV bicarb. Continue the low potassium diet. 4. Chronic kidney disease, mineral bone disease: The patient has hyperphosphatemia which is secondary to renal failure. I have started the patient on PhosLo two capsules by mouth three times a day with meals. 5. Hypocalcemia: It is secondary to renal failure and hyperphosphatemia. The patient was already given IV calcium gluconate by the primary team. I would avoid giving further IV calcium to this patient because of high phosphorus levels. I would improve her phosphorus level before giving her more potassium. 6. Hypomagnesemia: The patient was already being on IV magnesium sulfate. Magnesium level is slowly improving. 7. History of hypertension: The patient is actually hypotensive at this point. Avoid further use of NEREIDA inhibitors, angiotensin receptor blockers and diuretics at this time because of acute renal failure. 8. History of anxiety and depression: Okay to use home dose of Zoloft at this point. 9. Diabetes mellitus type 2: Continue insulin sliding scale. Avoid use of metformin at this point in renal failure. 10. Hyperlipidemia: She is not a candidate of use of fenofibrate in acute renal failure. If needed, she can continue the simvastatin. 11. Diarrhea: Unknown etiology at this point. GI panel has been negative. There is a possibility of uremic colitis. If there is no improvement in the renal function over the next 24 hours, I would have a low threshold to start this patient on dialysis. Thank you for involving me in the care of this patient. I should be happy to follow the patient along with you tomorrow morning. Total critical care time spent in the management of this patient this morning in the progressive care unit was 45 minutes. That does not include any procedures.
--- NOTE | 2018-10-04 14:05 | IPNPDOC ---
Subjective Date Seen The patient was seen on 10/04/18. Subjective Chief Complaint/HPI Patient seen and examined at the bedside. The patient reports that her diarrhea has resolved after receiving a dose of Imodium. She is scheduled to go for a permacath placement this a.m. She denies any other acute complaints at this time. Objective Physical Examination General Exam: Positive: Alert, Cooperative, No Acute Distress ENT Exam: Positive: Atraumatic, Mucous membr. moist/pink Neck Exam: Negative: JVD Chest Exam: Positive: Clear to auscultation, Normal air movement Heart Exam: Positive: Rate Normal, Normal S1, Normal S2 Abdomen Exam: Positive: Soft; Negative: Tenderness Extremity Exam: Negative: Tenderness Psych Exam: Positive: Oriented x 3 A-FIB/CHADSVASC A-FIB History Current/History of A-Fib/PAF?: No Assessment /Plan Plan/VTE VTE Prophylaxis Ordered?: Yes Plan Acute Renal Failure 2/2 Intractable N/V/D while concomitantly on NEREIDA- I/Metformin/Diuretic Therapy Patient's Serum Cr remains elevated at 10.0, however her UOP has increased today (400 cc's thus far) compared to yesterday (200 cc's) Serum Bicarb also improved with IVF Hydration Serum K stable Nephro on board for possible dialysis--permacath to be placed this AM Non Anion-gap Metabolic Acidosis 2/2 Acute Renal Failure, Diarrhea s/p IVF Hydration with D5W/150 Meqs of Sodium Bicarb Normocytic Anemia Likely 2/2 Hemodilutional effect, and Acute Renal Failure No overt bleeding noted Iron Studies wnl Patient asymptomatic with no indication for transfusion at this time Hyperkalemia 2/2 Above, resolved Diarrhea, resolved GI Panel negative Imodium prn Leukocytosis likely Reactive, resolved Diabetes Mellitus ISS ordered HTN Hold meds at this time 2/2 ARF Anxiety/Depression Cont Sertraline DVT Prophylaxis Heparin SC Dispo--pending clinical improvement VS, I&O, 24H, Fishbone Vital Signs/I&O Vital Signs Date Time Temp Pulse Resp B/P (MAP) Pulse Ox O2 Delivery O2 Flow Rate FiO2 10/04/18 11:30 97.7 71 18 110/53 (72) 98 10/02/18 14:44 Room Air I&O- Last 24 Hours up to 6 AM 10/04/18 06:00 Intake Total 2542 ml Output Total 200 ml Balance 2342 ml Laboratory Data 24H LABS Laboratory Tests 2 10/03/18 15:00: Urine Color JOSELYN, Urine Appearance CLOUDYH, Urine pH 5.0, Urine Specific Cutler 1.019, Urine Protein 1+H, Urine Glucose (UA) NEGATIVE, Urine Ketones TRACEH, Urine Blood NEGATIVE, Urine Nitrite NEGATIVE, Urine Bilirubin NEGATIVE, Urine Urobilinogen 0.2, Urine Leukocyte Esterase NEGATIVE, Urine WBC (Auto) 6H, Urine RBC (Auto) 2, Urine Hyaline Casts (Auto) 0, Urine Bacteria (Auto) NEGATIVE, Urine Squamous Epithelial Cells 0, Urine Mucus (Auto) SMALL, Urine Sperm (Auto) , Urine Random Creatinine 376.0 10/03/18 17:47: Blood Urea Nitrogen 90H, Creatinine 11.10*H, Sodium Level 136, Potassium Level 4.0, Chloride Level 106, Carbon Dioxide Level 12L, Anion Gap 18H, Glomerular Filtration Rate 3.7L, Calcium Level 6.1L, Phosphorus Level 8.0H, Albumin 3.3 10/03/18 18:04: Bedside Glucose (Misc Panel) 266H 10/03/18 20:27: Bedside Glucose (Misc Panel) 169H 10/04/18 05:47: Nucleated Red Blood Cells % (auto) 0.0, Anion Gap 15, Glomerular Filtration Rate 4.1L, Blood Urea Nitrogen 88H, Creatinine 10.00*H, Sodium Level 138, Potassium Level 3.6, Chloride Level 105, Carbon Dioxide Level 18L, Calcium Level 6.0L, Aspartate Amino Transf (AST/SGOT) 31, Alanine Aminotransferase (ALT/SGPT) 23, Alkaline Phosphatase 34L, Total Bilirubin 0.6, Total Protein 5.6L, Albumin 3.0L, Magnesium Level 1.9, Iron Level 147, Total Iron Binding Capacity 402, Transferrin % Saturation 36.6, Ferritin 162, Albumin/Globulin Ratio 1.15 10/04/18 11:11: Bedside Glucose (Misc Panel) 152H CBC/BMP Laboratory Tests 10/03/18 17:47 Anion Gap 18 H 10/04/18 05:47 Red Blood Count 3.07 L, Mean Corpuscular Volume 81.4, Mean Corpuscular Hemoglobi n 28.3, Mean Corpuscular Hemoglobin Concent 34.8, Red Cell Distribution Width 13.9, Calcium Level 6.0 L, Aspartate Amino Transf (AST/SGOT) 31, Alanine Aminotransferase (ALT/SGPT) 23, Alkaline Phosphatase 34 L, Total Bilirubin 0.6, Total Protein 5.6 L, Albumin 3.0 L Microbiology Microbiology 10/02/18 Gastrointestinal Tract Panel (PCR) - Final, Complete TERI SOTELO MD Oct 04, 2018 14:05
--- NOTE | 2018-10-04 14:15 | REP ---
FLUORO GUIDANCE, ONE VIEW: HISTORY: PermaCath placement. The patient is status post PermaCath placement. The catheter is present in the region of the superior vena cava and right atrium. Fluoro time 0.1 second. IMPRESSION: The patient is status post PermaCath placement. Electronically Signed by Peewee Barone MD 10/04/2018 02:20 P
[2018-10-04] MEDS: SERTRALINE HCL 50 MG TAB PO SCH (20:57)
[2018-10-05] MEDS: ACETAMINOPHEN TAB 650MG DOSE (2X325MG) PO PRN (00:07)
[2018-10-05 04:00] VITALS: BP 129/55
[2018-10-05 05:43] LABS: HEMATOCRIT 24.9 % (36.0-47.0); HEMOGLOBIN 8.3 g/dl (12.0-15.5); MEAN CORPUSCULAR HEMOGLOBIN 27.6 pg (27.0-33.0); MEAN CORPUSCULAR HGB CONC 33.3 g/dl (32.0-36.5); MEAN CORPUSCULAR VOLUME 82.7 fl (80.0-96.0); PLATELET COUNT, AUTOMATED 175 10^3/uL (150-450); RED BLOOD COUNT 3.01 10^6/uL (4.00-5.40)
[2018-10-05 06:06] LABS: BILIRUBIN,TOTAL 0.6 MG/DL (0.2-1.0); CALCIUM LEVEL 7.2 MG/DL (8.8-10.2); CREATININE FOR GFR 5.24 MG/DL (0.55-1.30); GLOMERULAR FILTRATION RATE 8.7 (>45); POTASSIUM SERUM 3.6 MEQ/L (3.5-5.1)
[2018-10-05 08:00] VITALS: BP 128/62
[2018-10-05] MEDS: ASPIRIN 81 MG ENTERIC TAB PO SCH (08:55)
[2018-10-05] MEDS: HumaLOG INSULIN (NovoLOG) PER UNIT SC SCH ×4 (08:55→21:31)
[2018-10-05] MEDS: CALCIUM ACETATE 667 MG GELCAP PO SCH ×3 (08:55→18:55)
[2018-10-05] MEDS: HEPARIN SOD (PORCINE) 5000 UNITS/ML VIAL SC SCH ×2 (08:56→21:31)
[2018-10-05 09:37] LABS: PTH INTACT 58.3 PG/ML (18.5-88.0)
[2018-10-05 09:45] LABS: HEPATITIS B SURFACE ANTIBODY NEGATIVE (POSITIVE)
[2018-10-05 09:57] LABS: HEPATITIS B SURFACE ANTIGEN NEGATIVE (NEGATIVE)
[2018-10-05] MEDS ORDERED: IRON SUCROSE 100MG 5ML VIAL (J1756 PER 1MG) IV SCH (10:15)
[2018-10-05] MEDS ORDERED: DARBEPOETIN 100 MCG/0.5 ML *DIALYSIS* SYRINGE (J0882) IV SCH (10:15)
[2018-10-05 10:23] LABS: HEPATITIS C VIRUS ABY INDEX < 0.0 INDEX (<0.8)
[2018-10-05 10:26] LABS: HEPATITIS B CORE ANTIBODY IGM NEGATIVE (NEGATIVE)
[2018-10-05 10:42] LABS: PHOSPHORUS LEVEL 4.8 MG/DL (2.5-4.9)
[2018-10-05 12:00] VITALS: BP 151/62
--- NOTE | 2018-10-05 12:17 | IPNPDOC ---
Subjective Date Seen The patient was seen on 10/05/18. Subjective Chief Complaint/HPI Patient seen and examined at the bedside. Reports that she is feeling better today after being dialyzed yesterday. Denies any complaints of nausea, vomiting, or abdominal pain. Reports that she continues to have some diarrhea, but notes that it is improved overall. Objective Physical Examination General Exam: Positive: Alert, Cooperative, No Acute Distress ENT Exam: Positive: Atraumatic, Mucous membr. moist/pink Neck Exam: Negative: JVD Chest Exam: Positive: Clear to auscultation, Normal air movement Heart Exam: Positive: Rate Normal, Normal S1, Normal S2 Abdomen Exam: Positive: Soft; Negative: Tenderness Extremity Exam: Negative: Tenderness Psych Exam: Positive: Oriented x 3 A-FIB/CHADSVASC A-FIB History Current/History of A-Fib/PAF?: No Assessment /Plan Plan/VTE VTE Prophylaxis Ordered?: Yes Plan Acute Renal Failure 2/2 Intractable N/V/D while concomitantly on NEREIDA- I/Metformin/Diuretic Therapy s/p Permacath placement on 10/04, with first session of HD Nephrology on board for further mgmt of dialysis Non Anion-gap Metabolic Acidosis 2/2 Acute Renal Failure, Diarrhea, resolved Normocytic Anemia Likely 2/2 Hemodilutional effect, and Acute Renal Failure No overt bleeding noted Iron Studies wnl Patient asymptomatic with no indication for transfusion at this time Hyperkalemia 2/2 Above, resolved Diarrhea, resolved GI Panel negative Imodium prn Leukocytosis likely Reactive, resolved Diabetes Mellitus ISS ordered HTN Hold meds at this time 2/2 ARF Anxiety/Depression Cont Sertraline DVT Prophylaxis Heparin SC Dispo--pending clinical improvement VS, [facility]O, [facility] Vital Signs/I&O Vital Signs Date Time Temp Pulse Resp B/P (MAP) Pulse Ox O2 Delivery O2 Flow Rate FiO2 10/05/18 08:00 96.4 67 16 128/62 (84) 100 10/02/18 14:44 Room Air I&O- Last 24 Hours up to 6 AM 10/05/18 06:00 Intake Total 950 ml Output Total 405 ml Balance 545 ml Laboratory Data 24H LABS Laboratory Tests 2 10/04/18 14:53: Bedside Glucose (Misc Panel) 103 10/04/18 18:02: Bedside Glucose (Misc Panel) 124H 10/04/18 20:53: Bedside Glucose (Misc Panel) 217H 10/05/18 05:22: Nucleated Red Blood Cells % (auto) 0.0, Anion Gap 7L, Glomerular Filtration Rate 8.7L, Blood Urea Nitrogen 50H, Creatinine 5.24H, Sodium Level 140, Potassium Level 3.6, Chloride Level 111H, Carbon Dioxide Level 22, Calcium Level 7.2#L, Phosphorus Level 4.8#, Aspartate Amino Transf (AST/SGOT) 32, Alanine Aminotransferase (ALT/SGPT) 27, Alkaline Phosphatase 36L, Total Bilirubin 0.6, Total Protein 6.0L, Albumin 3.0L, Albumin/Globulin Ratio 1.00 10/05/18 11:55: Bedside Glucose (Misc Panel) 126H CBC/BMP Laboratory Tests 10/05/18 05:22 Red Blood Count 3.01 L, Mean Corpuscular Volume 82.7, Mean Corpuscular Hemoglobin 27.6, Mean Corpuscular Hemoglobin Concent 33.3, Red Cell Distribution Width 14.0, Calcium Level 7.2 #L, Phosphorus Level 4.8 #, Aspartate Amino Transf (AST/SGOT) 32, Alanine Aminotransferase (ALT/SGPT) 27, Alkaline Phosphatase 36 L, Total Bilirubin 0.6, Total Protein 6.0 L, Albumin 3.0 L Microbiology Microbiology 10/02/18 Gastrointestinal Tract Panel (PCR) - Final, Complete TERI OSTELO MD Oct 05, 2018 12:17
[2018-10-05 15:30] VITALS: BP 150/68
--- NOTE | 2018-10-05 19:04 | REP ---
BILATERAL UPPER EXTREMITY DUPLEX DOPPLER ARTERIAL AND VENOUS ULTRASOUND: Real-time ultrasound evaluation and duplex Doppler interrogation of bilateral upper extremity arterial and venous systems is performed for mapping for AV fistula placement. There is partial thrombosis of the right cephalic vein mid to distal aspect. There is left deep vein thrombosis involving the axillary and one of the paired brachial veins in its proximal to mid aspect, as well as in the left basilic veins diffusely. On the right the basilic vein measures 4 mm at the level of the humerus, 2 mm in the upper forearm, 1 mm in the lower forearm and wrist. Median cubital vein measures 6 mm. Right cephalic vein measures between 4 and 5 mm at the level of the humerus. Left upper extremity arterial structures demonstrate normal flow velocities with biphasic wave forms. Right axillary and brachial arteries measure 4 mm, right radial artery 1 mm and ulnar artery 2 mm. On the left the thrombosed basilic vein measures 3 mm at the upper humerus, 4 mm at the lower humerus, 2 mm in the upper forearm and 1 mm in the lower forearm and wrist. Left cephalic vein measures 2 mm at the level of the humerus and upper forearm and 1 mm in the lower forearm and wrist. Median cubital vein measures 3 mm, left axillary artery is not visualized. Left brachial artery demonstrates peak systolic velocity 200 cm/s. It measures 4 mm. Left radial artery measures 2 mm and ulnar artery 3 mm. Electronically Signed by Obey Ignacio MD 10/07/2018 10:12 A
[2018-10-05 20:00] VITALS: BP_SYST 135; BP_SYST 163; BP_DIAS 61; BP_DIAS 72
[2018-10-05] MEDS: SERTRALINE HCL 50 MG TAB PO SCH (21:31)
[2018-10-05 23:59] VITALS: BP 131/61
[2018-10-06 04:00] VITALS: BP 119/57
[2018-10-06 06:20] LABS: HEMATOCRIT 27.9 % (36.0-47.0); HEMOGLOBIN 8.5 g/dl (12.0-15.5); MEAN CORPUSCULAR HEMOGLOBIN 27.7 pg (27.0-33.0); MEAN CORPUSCULAR HGB CONC 30.5 g/dl (32.0-36.5); MEAN CORPUSCULAR VOLUME 90.9 fl (80.0-96.0); PLATELET COUNT, AUTOMATED 179 10^3/uL (150-450); RED BLOOD COUNT 3.07 10^6/uL (4.00-5.40); WHITE BLOOD COUNT 4.2 10^3/uL (4.0-10.0)
[2018-10-06 06:43] LABS: BILIRUBIN,TOTAL 0.3 MG/DL (0.2-1.0); CREATININE FOR GFR 2.53 MG/DL (0.55-1.30); GLOMERULAR FILTRATION RATE 20.2 (>45)
[2018-10-06 07:50] VITALS: BP 132/63
--- NOTE | 2018-10-06 09:23 | CR.PDOC ---
General Date of Consultation: Oct 06, [address] Kenny. HPI: 68-year-old female with h/ohronic lower extremity edema on diuretic therapy presented to the ER with a chief complaint of abdominal pain, nausea/vomitin g/diarrhea, and weakness. The patient states that for the [id number] days prior to admission was having intractable nausea/vomiting/diarrhea. She denies any fevers, chills, sick contacts, recent antibiotic use, hospitalization, or recent travel. Of note, the patient states that she continued to take her diuretic therapy, lisinopril, and metformin during this time while she was having diarrhea. The patient states that she was recently 3 weeks ago started on spironolactone by her PCP, but notes that she stopped taking it approximately 2 weeks ago due to the diarrhea. In the ER, the patient was noted to be in acute renal failure. She will be admitted to the hospitalist service, and a consult has been placed to vascular surgery for further evaluation for HD access. Denies any Headache, Chest Pain, Shortness of breath, cough, palpitations. PMHx: HTN DM HLD GERD depression SOCHX: Tobacco use: denies ETOH: denies Illicit Drugs: Denies FAMHX: non contributory ROS: As noted in HPI, otherwise 11pt ROS of systems reviewed and unremarkable. PE: GEN: 68yoF, appears stated age. Well-nourished, well developed. No acute distress. Alert and oriented x 3. Pleasant, interactive. HEENT: Normocephalic, atraumatic. Moist mucous membranes. CHEST: Regular rate and rhythm, +S1, +S2 LUNGS: Clear to auscultation bilaterally. No wheezes, rales, or rhonchi. Breathing appears symmetric and easy. Patient is speaking in full sentences. ABD: Round, soft, non-tender, non-distended. +Bowel sounds throughout. No rebound or guarding. No costovertebral angle tenderness. SKIN: [place], dry, warm. Capillary refill <2sec. No rashes. NEURO: Alert and oriented x 3. Cranial nerves III-XII are intact. No focal deficits appreciated. A&P: 68-year-old female with h/ohronic lower extremity edema on diuretic therapy presented to the ER with a chief complaint of abdominal pain, nausea/vomiting/diarrhea, and weakness. The patient states that for the [id number] days prior to admission was having intractable nausea/vomiting/diarrhea. She denies any fevers, chills, sick contacts, recent antibiotic use, hospitalization, or recent travel. Of note, the patient states that she continued to take her diuretic therapy, lisinopril, and metformin during this time while she was having diarrhea. The patient states that she was recently 3 weeks ago started on spironolactone by her PCP, but notes that she stopped taking it approximately 2 weeks ago due to the diarrhea. In the ER, the patient was noted to be in acute renal failure. She will be admitted to the hospitalist service, and a consult has been placed to vascular surgery for further evaluation for HD access. Acute Renal Failure 2/2 Intractable N/V/D while concomitantly on NEREIDA- I/Metformin/Diuretic Therapy s/p Permacath placement on 10/[address] Kenny. HD mgmt as per Nephrology Vein mapping requested for further evaluation of possible AVF creation. Normocytic Anemia Iron Studies wnl Diarrhea, resolved GI Panel negative Imodium prn Diabetes Mellitus SSI HTN Meds on hold at this time 2/2 ARF Mgmt as per primary team. Anxiety/Depression Sertraline DVT Prophylaxis Heparin SC Thank you for your consultation. We will continue to follow along with you. Vital Signs/I&O Vital Signs Date Time Temp Pulse Resp B/P (MAP) Pulse Ox O2 Delivery O2 Flow Rate FiO2 10/06/18 07:50 97.1 68 18 132/63 (86) 98 10/02/18 14:44 Room Air I&O- Last 24 Hours up to 6 AM 10/06/18 06:00 Intake Total 840 ml Output Total 1100 ml Balance -260 ml Laboratory Data Labs 24H Laboratory Tests 2 10/05/18 11:55: Bedside Glucose (Misc Panel) 126H 10/05/18 18:53: Bedside Glucose (Misc Panel) 101 10/05/18 21:23: Bedside Glucose (Misc Panel) 303H 10/06/18 05:57: Nucleated Red Blood Cells % (auto) 0.0, Anion Gap 8, Glomerular Filtration Rate 20.2L, Blood Urea Nitrogen 20#H, Creatinine 2.53#H, Sodium Level 141, Potassium Level 4.0, Chloride Level 111H, Carbon Dioxide Level 22, Calcium Level 8.0L, Aspartate Amino Transf (AST/SGOT) 34, Alanine Aminotransferase (ALT/SGPT) 28, Alkaline Phosphatase 37L, Total Bilirubin 0.3, Total Protein 6.0L, Albumin 3.0L, Albumin/Globulin Ratio 1.00 CBC/BMP Laboratory Tests 10/06/18 05:57 Red Blood Count 3.07 L, Mean Corpuscular Volume 90.9, Mean Corpuscular Hemoglobin 27.7, Mean Corpuscular Hemoglobin Concent 30.5 L, Red Cell Distribution Width 14.3, Calcium Level 8.0 L, Aspartate Amino Transf (AST/SGOT) 34, Alanine Aminotransferase (ALT/SGPT) 28, Alkaline Phosphatase 37 L, Total Bilirubin 0.3, Total Protein 6.0 L, Albumin 3.0 L Microbiology Microbiology 10/02/18 Gastrointestinal Tract Panel (PCR) - Final, Complete Allergies Coded Allergies: azithromycin (Verified Allergy, Unknown, 10/02/18) BREAKOUT Home Medications Scheduled Ascorbic Acid (Vitamin C) 500 Mg Tablet, 500 MG PO DAILY, (Reported) Aspirin (Aspir 81) 81 Mg Tablet.dr, 81 MG PO DAILY, (Reported) Fenofibrate Nanocrystallized (Fenofibrate) 145 Mg Tab, 145 MG PO DAILY, (Rep orted) Furosemide (Furosemide) 20 Mg Tab, 20 MG PO DAILY, (Reported) Latanoprost (Xalatan) 0.005% 2.5ML Drops, 1 DROP OU QHS, (Reported) Lisinopril (Lisinopril) 40 Mg Tab, 40 MG PO DAILY, (Reported) Metformin HCl (Metformin HCl ER) 500 Mg Tab, 1,000 MG PO BID, (Reported) Metoprolol Succinate (Metoprolol Succinate) 200 Mg Tab.er.24h, 200 MG PO QHS, (Reported) Omeprazole (Omeprazole) 20 Mg Cap, 20 MG PO DAILY, (Reported) Sertraline HCl (Sertraline HCl) 50 Mg Tab, 50 MG PO QHS, (Reported) Simvastatin (Simvastatin) 40 Mg Tab, 40 MG PO QHS, (Reported) Vitamin D (Vitamin D3) 1,000 Unit Tablet, 1,000 UNITS PO DAILY, (Reported) Scheduled PRN Acetaminophen (Tylenol Extra Strength) 500 Mg Tablet, 500 MG PO Q6H PRN for PAIN, (Reported) Marybeth Helton Oct 06, 2018 09:23
[2018-10-06] MEDS: ASPIRIN 81 MG ENTERIC TAB PO SCH (09:24)
[2018-10-06] MEDS: HumaLOG INSULIN (NovoLOG) PER UNIT SC SCH ×4 (09:24→20:32)
[2018-10-06] MEDS: CALCIUM ACETATE 667 MG GELCAP PO SCH ×3 (09:25→18:52)
[2018-10-06] MEDS: HEPARIN SOD (PORCINE) 5000 UNITS/ML VIAL SC SCH ×2 (09:25→20:32)
[2018-10-06 11:25] VITALS: BP 127/56
--- NOTE | 2018-10-06 11:30 | IPNPDOC ---
Subjective Date Seen The patient was seen on 10/06/18. Subjective Chief Complaint/HPI Patient seen and examined at the bedside. Reports that she is feeling better after her second session of dialysis yesterday. She continues to make some urine. Denies that her diarrhea is improved. Denies any abdominal pain or nausea/vomiting. Objective Physical Examination General Exam: Positive: Alert, Cooperative, No Acute Distress ENT Exam: Positive: Atraumatic, Mucous membr. moist/pink Neck Exam: Negative: JVD Chest Exam: Positive: Clear to auscultation, Normal air movement Heart Exam: Positive: Rate Normal, Normal S1, Normal S2 Abdomen Exam: Positive: Soft; Negative: Tenderness Extremity Exam: Negative: Tenderness, Swelling Psych Exam: Positive: Oriented x 3 A-FIB/CHADSVASC A-FIB History Current/History of A-Fib/PAF?: No Assessment /Plan Plan/VTE VTE Prophylaxis Ordered?: Yes Plan Acute Renal Failure 2/2 Intractable N/V/D while concomitantly on NEREIDA- I/Metformin/Diuretic Therapy s/p Permacath placement on 10/04 Nephrology on board for further mgmt of dialysis PFS consult has been placed for outpatient dialysis arrangement Non Anion-gap Metabolic Acidosis 2/2 Acute Renal Failure, Diarrhea, resolved Normocytic Anemia Likely 2/2 Hemodilutional effect, and Acute Renal Failure No overt bleeding noted Iron Studies wnl Patient asymptomatic with no indication for transfusion at this time Hyperkalemia 2/2 Above, resolved Diarrhea, resolved GI Panel negative Imodium prn Leukocytosis likely Reactive, resolved Diabetes Mellitus ISS ordered HTN Hold meds at this time 2/2 ARF Anxiety/Depression Cont Sertraline DVT Prophylaxis Heparin SC Dispo--pending clinical improvement, arrangement of outpatient dialysis. VS, I&O, 24H, Fishbone Vital Signs/I&O Vital Signs Date Time Temp Pulse Resp B/P (MAP) Pulse Ox O2 Delivery O2 Flow Rate FiO2 10/06/18 07:50 97.1 68 18 132/63 (86) 98 10/02/18 14:44 Room Air I&O- Last 24 Hours up to 6 AM 10/06/18 05:59 Intake Total 840 ml Output Total 1000 ml Balance -160 ml Laboratory Data 24H LABS Laboratory Tests 2 10/05/18 11:55: Bedside Glucose (Misc Panel) 126H 10/05/18 18:53: Bedside Glucose (Misc Panel) 101 10/05/18 21:23: Bedside Glucose (Misc Panel) 303H 10/06/18 05:57: Nucleated Red Blood Cells % (auto) 0.0, Anion Gap 8, Glomerular Filtration Rate 20.2L, Blood Urea Nitrogen 20#H, Creatinine 2.53#H, Sodium Level 141, Potassium Level 4.0, Chloride Level 111H, Carbon Dioxide Level 22, Calcium Level 8.0L, Aspartate Amino Transf (AST/SGOT) 34, Alanine Aminotransferase (ALT/SGPT) 28, Alkaline Phosphatase 37L, Total Bilirubin 0.3, Total Protein 6.0L, Albumin 3.0L, Albumin/Globulin Ratio 1.00 CBC/BMP Laboratory Tests 10/06/18 05:57 Red Blood Count 3.07 L, Mean Corpuscular Volume 90.9, Mean Corpuscular Hem oglobin 27.7, Mean Corpuscular Hemoglobin Concent 30.5 L, Red Cell Distribution Width 14.3, Calcium Level 8.0 L, Aspartate Amino Transf (AST/SGOT) 34, Alanine Aminotransferase (ALT/SGPT) 28, Alkaline Phosphatase 37 L, Total Bilirubin 0.3, Total Protein 6.0 L, Albumin 3.0 L Microbiology Microbiology 10/02/18 Gastrointestinal Tract Panel (PCR) - Final, Complete TERI SOTELO MD Oct 06, 2018 11:30
--- NOTE | 2018-10-06 13:03 | IPN ---
DATE OF SERVICE: 10/06/2018 SUBJECTIVE: The patient was seen and examined at the bedside today morning. She is afebrile, hemodynamically stable. She was dialyzed yesterday, 400 mL of fluid was removed. She is symptomatically better. She reports that her diarrhea is getting better. She denies any more nausea. She also reports that her urine output is slowly improving. She denies any active complaints and she feels much better ever since her dialysis was started. OBJECTIVE: VITAL SIGNS: Temperature is 97.6 degrees Fahrenheit, blood pressure 127/56, pulse is 69, respiratory rate of 18, saturating 97% on room air. INTAKE AND OUTPUT: The urine output recorded is only 100 mL since overnight. Weight on the bed scale is 62.9 kg, which is not reliable because there is a 10 kg difference from yesterday. PHYSICAL EXAMINATION: GENERAL: Patient is awake, alert, oriented times three, laying in bed, in no apparent distress. HEAD AND NECK EXAM: Extraocular muscles intact. Pupils equally round and reactive to light. Mucous membranes are moist. NECK: Supple. She has a right IJ tunneled hemodialysis catheter. CARDIOVASCULAR: S1-S2 regular rate. No edema of the bilateral lower extremities. RESPIRATORY: Chest is clear to auscultation bilaterally. Bilateral equal air entry. No rales or rhonchi. ABDOMEN: Soft. Positive bowel sounds. Nontender. No organomegaly. MUSCULOSKELETAL: No clubbing or cyanosis. Pulses are 2+. BENDING SHED WORKER: No focal deficit. Power is 5/5 in all extremities. LAB REVIEW: CBC showed a WBC 4.2, hemoglobin 8.5, platelets are 179. BMP showed sodium 141, potassium is 4, chloride 111, bicarb 22, BUN 20, creatinine is 2.5, calcium is 8. CURRENT INPATIENT MEDICATIONS: The patient's medications were all reviewed by me. Calcium acetate was reduced to one capsule three times a day with meals. She was started on Venofer with dialysis and Aranesp with hemodialysis. No other change in the medications today as compared with yesterday. ASSESSMENT/PLAN: 1. Acute renal failure. The patient is dialysis dependent at this time. Her last dialysis was done yesterday. Next hemodialysis will be done tomorrow. Continue to monitor for renal recovery. 2. Anemia and renal failure. The patient has iron deficiency as well. She was started on IV Venofer and Aranesp with dialysis. Hemoglobin level is slowly improving. 3. Hypertension. Blood pressures levels are acceptable, avoid use of NEREIDA inhibitors or angiotensin receptor blockers. She is currently not on any antihypertensives at this point. 4. Diarrhea. The patient's diarrhea is getting better. She is currently on Imodium p.r.n. 5. Metabolic acidosis. Bicarb level has improved. Acidosis is being managed with dialysis now. DISPOSITION: Patient is optimized from a nephrology standpoint to be discharged and get dialysis as outpatient whenever she is cleared from physical therapy and a chair is available at the dialysis center.
--- NOTE | 2018-10-06 13:51 | IPN ---
DATE: 10/05/2018 SUBJECTIVE: The patient was seen and examined at the bedside today morning. She is afebrile, hemodynamically stable. She was dialyzed for the first time yesterday. She tolerated the hemodialysis procedure well. She reports that her diarrhea is improving. She also reports to be having more urine output. Electrolytes are within the acceptable range at this point. OBJECTIVE: Vital signs: Temperature is 96.8 degrees Fahrenheit, blood pressure 151/62, pulse is 74, respiratory 18, saturating 98% on room air. Intake and output: Urine output recorded since overnight is 500 m. Weight in the bed scale is 52 kg. PHYSICAL EXAMINATION: GENERAL: The patient is awake, alert, oriented times three, lying in bed in no apparent distress. HEAD AND NECK: Extraocular muscles intact. Pupils equally round and reactive to light. Mucous membranes are moist. NECK: Supple. She has a right internal jugular (IJ) tunneled hemodialysis catheter. CARDIOVASCULAR: S1-S2 regular rate. No edema of the bilateral lower extremities. RESPIRATORY: Chest is clear to auscultation bilaterally. Bilateral equal air entry. No rales or rhonchi. ABDOMEN: Soft. Positive bowel sounds. Nontender. No organomegaly. MUSCULOSKELETAL: No clubbing or cyanosis. Pulses are 2+. CENTRAL NERVOUS SYSTEM: No focal deficit. Power is 5/5 in all extremities. LABORATORY REVIEW: CBC showed a WBC of 4, hemoglobin 8.3, platelets are 175. BMP showed sodium 140, potassium 3.6, chloride 111, bicarbonate 22, BUN 50, creatinine is 5.2, calcium 7.2, phosphorus is 4.8. Albumin is 3. CURRENT INPATIENT MEDICATIONS: The patient's medications were all reviewed by myself. I have decreased the PhosLo dose to one capsule by mouth tree times a day with meals. She was also started on Aranesp 100 mcg intravenous (IV) with hemodialysis once a week, and she has been started on iron sucrose 100 mg with hemodialysis. No other change in the medications today as compared with yesterday. ASSESSMENT AND PLAN: 1. Acute renal failure. It is multifactorial secondary to diarrhea, use of metformin, angiotensin-converting enzyme (NEREIDA) inhibitors, and diuretics at home. The patient is nonoliguric at this point. She made almost 500 mL of urine so far since overnight; however, she is still dialysis dependent. She will get second session of dialysis today for 3 hours. Continue to monitor for renal recovery 2. Metabolic acidosis. It was secondary to renal failure and diarrhea. She was dialyzed yesterday. Serum bicarbonate level has improved to 22. Today she will be dialyzed against a bicarbonate of 30. 3. Anemia and renal failure. The patient will be given a dose of Aranesp 100 mcg at dialysis today, and she is also being started on Venofer 100 mg IV every hemodialysis (HD) for a total of five doses. 4. Hypocalcemia. It was secondary to hyperphosphatemia. Calcium level is improving with improvement in the phosphorus level. 5. Hyperphosphatemia. Phosphorus level has improved to within the normal range. Decrease the phosphorus binder to one tablet of PhosLo three times a day with meals. 6. Diarrhea. The patient's diarrhea is significantly better after starting Imodium. Gastrointestinal (GI) panel was negative. 7. Disposition. I have requested chair at [facility] for acute renal failure, dialysis while the patient is recovering.
[2018-10-06 16:00] VITALS: BP 127/62
[2018-10-06 20:00] VITALS: BP 158/52
[2018-10-06] MEDS: SERTRALINE HCL 50 MG TAB PO SCH (20:31)
--- NOTE | 2018-10-06 21:42 | IPN ---
DATE OF VISIT: 10/04/2018 SUBJECTIVE: The patient was seen and examined at the bedside today morning. Patient's labs were monitored overnight by myself as well. Her urine output is slightly better today as compared with yesterday; however, there is no significant improvement in the renal function. Her creatinine is still 10. She was already discussed with vascular surgery and the plan was to get a tunneled catheter placed for the initiation of dialysis. When I saw the patient today morning she had already gotten her right internal jugular (IJ) tunneled hemodialysis catheter placed and I have arranged her hemodialysis session to be done today. She reports that she is still having diarrhea but the episodes are slightly better today as compared with yesterday. She was started on Imodium. She still has metabolic acidosis but is slightly better today because of intravenous (IV) bicarbonate containing fluids. She denies any fevers, chills, nausea or vomiting at this point. OBJECTIVE: VITAL SIGNS: Temperature is 97.7 degrees Fahrenheit, blood pressure 110/53, pulse is 71, respiratory rate of 18, saturating 98% on room air. Intake and output: Urine output recorded as 400 mL since overnight. Weight in the bed scale is 56.2 kg. PHYSICAL EXAMINATION: GENERAL: The patient is awake, alert, oriented times three. She is sitting up in the bed in no apparent distress. HEAD/NECK: Extraocular muscles intact. Pupils equally round and reactive to light. Mucous membranes are moist. Neck is supple. There is no jugular venous distention (JVD). She has a right internal jugular (IJ) tunneled hemodialysis catheter which was placed today. CARDIOVASCULAR: S1-S2 regular rate, no edema of the bilateral lower extremities. RESPIRATORY: Chest is clear to auscultation bilaterally. Bilateral equal air entry. No rales or rhonchi. ABDOMEN: Soft. Positive bowel sounds. Nontender. No organomegaly. MUSCULOSKELETAL: No clubbing or cyanosis. Pulses are 2+. CENTRAL NERVOUS SYSTEM (MANAGER POST): No focal deficit. Power is 5/5 in all extremities. LABORATORY REVIEW: CBC showed a WBC 4.8, hemoglobin 8.7, platelets of 180. Basic Metabolic Profile (BMP) showed sodium 138, potassium 3.6, chloride 105 bicarbonate 18, BUN 88, creatinine is 10, glucose 152, calcium is 6, iron 147, TIBC 402, transferrin saturation 36. 6, ferritin is 162. CURRENT INPATIENT MEDICATIONS: The patient's medications were all reviewed by me. I have stopped her intravenous (IV) bicarb containing fluids. She was started on PhosLo yesterday but she reports she was unable to tolerated it. She has been started on loperamide for diarrhea. ASSESSMENT/PLAN: 1. Acute renal failure. The patient reports that her urine output is improving; however, she still continues to be oliguric. No significant improvement in the renal function. She got a tunneled dialysis catheter placed. She will dialyzed today for two hours. Continue to monitor for her renal recovery. 2. High anion gap metabolic acidosis. It is secondary to a combination of diarrhea and renal failure. She was on intravenous bicarb containing fluid, I have stopped the fluid. Further acidosis will be managed with hemodialysis. 3. Hyperphosphatemia. The patient was started on PhosLo with meals. However, she was unable to tolerate it. The phosphorus level is expected to improve with hemodialysis. 3. Hypertension. Blood pressure is optimal at this point. Avoid the use of NEREIDA inhibitors or angiotensin receptor blockers. 4. Persistent diarrhea. The patient's gastrointestinal (GI) panel is negative. She is currently on Imodium. I liberalized the fluid intake.
[2018-10-06 23:59] VITALS: BP 132/60
[2018-10-07] MEDS: ACETAMINOPHEN TAB 650MG DOSE (2X325MG) PO PRN ×2 (00:42→20:48)
[2018-10-07 04:00] VITALS: BP 139/62
[2018-10-07 06:13] LABS: HEMATOCRIT 26.3 % (36.0-47.0); HEMOGLOBIN 8.5 g/dl (12.0-15.5); MEAN CORPUSCULAR HEMOGLOBIN 27.9 pg (27.0-33.0); MEAN CORPUSCULAR HGB CONC 32.3 g/dl (32.0-36.5); MEAN CORPUSCULAR VOLUME 86.2 fl (80.0-96.0); PLATELET COUNT, AUTOMATED 172 10^3/uL (150-450); RED BLOOD COUNT 3.05 10^6/uL (4.00-5.40); WHITE BLOOD COUNT 4.8 10^3/uL (4.0-10.0)
[2018-10-07 06:40] LABS: ALBUMIN 2.8 GM/DL (3.2-5.2); BILIRUBIN,TOTAL 0.4 MG/DL (0.2-1.0); CALCIUM LEVEL 7.7 MG/DL (8.8-10.2); CREATININE FOR GFR 2.74 MG/DL (0.55-1.30); GLOMERULAR FILTRATION RATE 18.4 (>45); POTASSIUM SERUM 3.8 MEQ/L (3.5-5.1); TOTAL PROTEIN 5.9 GM/DL (6.4-8.2)
[2018-10-07 08:00] VITALS: BP 144/69
[2018-10-07] MEDS: ASPIRIN 81 MG ENTERIC TAB PO SCH (08:27)
[2018-10-07] MEDS: CALCIUM ACETATE 667 MG GELCAP PO SCH ×3 (08:27→17:40)
[2018-10-07] MEDS: HumaLOG INSULIN (NovoLOG) PER UNIT SC SCH ×4 (08:28→20:48)
[2018-10-07] MEDS: HEPARIN SOD (PORCINE) 5000 UNITS/ML VIAL SC SCH ×2 (08:28→20:48)
--- NOTE | 2018-10-07 10:58 | IPNPDOC ---
Subjective Date Seen The patient was seen on 10/07/18. Subjective Chief Complaint/HPI Patient seen and examined at the bedside. No acute overnight events noted. Objective Physical Examination General Exam: Positive: Alert, Cooperative, No Acute Distress ENT Exam: Positive: Atraumatic, Mucous membr. moist/pink Neck Exam: Negative: JVD Chest Exam: Positive: Clear to auscultation, Normal air movement Heart Exam: Positive: Rate Normal, Normal S1, Normal S2 Abdomen Exam: Positive: Soft; Negative: Tenderness Extremity Exam: Negative: Tenderness, Swelling Psych Exam: Positive: Oriented x 3 A-FIB/CHADSVASC A-FIB History Current/History of A-Fib/PAF?: No Assessment /Plan Plan/VTE VTE Prophylaxis Ordered?: Yes Plan Acute Renal Failure 2/2 Intractable N/V/D while concomitantly on NEREIDA- I/Metformin/Diuretic Therapy s/p Permacath placement on 10/04 Nephrology on board for further mgmt of dialysis PFS consult has been placed for outpatient dialysis arrangement Non Anion-gap Metabolic Acidosis 2/2 Acute Renal Failure, Diarrhea, resolved Normocytic Anemia Likely 2/2 Hemodilutional effect, and Acute Renal Failure No overt bleeding noted Iron Studies wnl Patient asymptomatic with no indication for transfusion at this time Hyperkalemia 2/2 Above, resolved Diarrhea, resolved GI Panel negative Imodium prn Leukocytosis likely Reactive, resolved Diabetes Mellitus ISS ordered HTN Hold meds at this time 2/2 ARF Anxiety/Depression Cont Sertraline DVT Prophylaxis Heparin SC Dispo--pending clinical improvement, arrangement of outpatient dialysis by PFS. VS, I&O, 24H, Fishbone Vital Signs/I&O Vital Signs Date Time Temp Pulse Resp B/P (MAP) Pulse Ox O2 Delivery O2 Flow Rate FiO2 10/07/18 08:00 97.8 64 18 144/69 (94) 100 10/02/18 14:44 Room Air I&O- Last 24 Hours up to 6 AM 10/07/18 06:00 Intake Total 2150 ml Output Total 450 ml Balance 1700 ml Laboratory Data 24H LABS Laboratory Tests 2 10/06/18 11:34: Bedside Glucose (Misc Panel) 192H 10/06/18 16:29: Bedside Glucose (Misc Panel) 145H 10/06/18 20:30: Bedside Glucose (Misc Panel) 239H 10/07/18 05:57: Nucleated Red Blood Cells % (auto) 0.0, Anion Gap 5L, Glomerular Filtration Rate 18.4L, Blood Urea Nitrogen 27H, Creatinine 2.74H, Sodium Level 141, Potassium Level 3.8, Chloride Level 111H, Carbon Dioxide Level 25, Calcium Level 7.7L, Aspartate Amino Transf (AST/SGOT) 25, Alanine Aminotransferase (ALT/SGPT) 25, Alkaline Phosphatase 37L, Total Bilirubin 0.4, Total Protein 5.9L, Albumin 2.8L, Albumin/Globulin Ratio 0.90L CBC/BMP Laboratory Tests 10/07/18 05:57 Red Blood Count 3.05 L, Mean Corpuscular Volume 86.2, Mean Corpuscular Hemoglobin 27.9, Mean Corpuscular Hemoglobin Concent 32.3, Red Cell Distribution Width 13.8, Calcium Level 7.7 L, Aspartate Amino Transf (AST/SGOT) 25, Alanine Aminotransferase (ALT/SGPT) 25, Alkaline Phosphatase 37 L, Total Bilirubin 0.4, Total Protein 5.9 L, Albumin 2.8 L Microbiology Microbiology 10/02/18 Gastrointestinal Tract Panel (PCR) - Final, Complete TERI SOTELO MD October 07, 2018 10:58
[2018-10-07] MEDS ORDERED: HEPARIN 1,000 UNITS/ML 10ML VIAL (FOR RADIOLOGY& DIALYSIS ONLY) XX ONE (11:15)
[2018-10-07] MEDS ORDERED: HEPARIN 1,000 UNITS/ML 10ML VIAL (FOR RADIOLOGY& DIALYSIS ONLY) IV ONE (11:15)
[2018-10-07 16:00] VITALS: BP 147/67
--- NOTE | 2018-10-07 16:13 | IPN ---
DATE: 10/07/2018 OBJECTIVE: The patient was seen and examined at the bedside today morning. She is afebrile and hemodynamically stable. She is making around 500 mL of urine a day. There is still no significant improvement in the renal function. Creatinine continues to rise in between hemodialysis. Last hemodialysis was two days ago. She reports that her diarrhea os significantly better. OBJECTIVE: VITAL SIGNS: Temperature is 97.8 degrees Fahrenheit, blood pressure 144/69, pulse is 64, respiratory rate of 18, saturating 100% on room air. INTAKE AND OUTPUT: Urine output recorded is 550 mL yesterday. Weight in the bed scale is 63.1 kg. PHYSICAL EXAMINATION: GENERAL: The patient is awake, alert, oriented times three, laying in bed, in no apparent distress. HEAD AND NECK: Extraocular muscles intact. Pupils equally round and reactive to light. Mucous membranes are moist. Neck is supple. She has a right internal jugular (IJ) tunneled hemodialysis catheter. CARDIOVASCULAR: S1, S2, regular rate. No edema of the bilateral lower extremities. RESPIRATORY: Chest is clear to auscultation bilaterally. Bilateral equal air entry. No rales or rhonchi. ABDOMEN: Soft. Positive bowel sounds. Nontender. No organomegaly. MUSCULOSKELETAL: No clubbing or cyanosis. Pulses are 2+. CENTRAL NEUROLOGIC SYSTEM (COUNTER HOP): No focal deficit. Power is 5/5 in all extremities. LABORATORY REVIEW: CBC showed a WBC 4.8, hemoglobin 8.5, platelets are 172. BMP showed sodium 141, potassium 3.8, chloride 111, bicarbonate 25, BUN 27, creatinine is 2.7, calcium 7.7, albumin is 2.8. CURRENT INPATIENT MEDICATIONS: The patient's medications were all reviewed by me. There is no change in the medications today as compared with yesterday. ASSESSMENT AND PLAN: 1. Acute renal failure. The patient is still dialysis dependent and interdialytic creatinine numbers are still rising. She will get another session of hemodialysis for three hours. Continue to monitor for renal recovery. However, the patient does not need to stay in the hospital. 2. Hypertension. The patient has a history of hypertension. However, blood pressures are acceptable at this point. No need of antihypertensive medications at this time. 3. Anemia and renal failure. The patient continues to be on Aranesp and Venofer with dialysis. Hemoglobin level is stable, improving. 3. Hyperphosphatemia. The patient continues to be on PhosLo one tablet by mouth with meals three times a day. DISPOSITION: I have called the dialysis center to make a spot for her. However, they have not received the application so far. The patient is optimized from nephrology standpoint to be discharged whenever she has a chair time available at outpatient dialysis center. Rest of the acute renal failure management will be done as outpatient.
[2018-10-07 16:44] LABS: APPEARANCE, URINE HAZY (CLEAR); BACTERIA, URINE AUTO 1+ (NEGATIVE); BILIRUBIN, URINE AUTO NEGATIVE (NEGATIVE); BLOOD, URINE BLOOD NEGATIVE (NEGATIVE); COLOR, URINE YELLOW (YELLOW); GLUCOSE, URINE (UA) AUTO 1+ mg/dL (NEGATIVE); KETONE, URINE AUTO NEGATIVE (NEGATIVE); LEUKOCYTE ESTERASE, URINE AUTO 2+ (NEGATIVE); MUCUS, URINE SMALL (NEGATIVE); NITRITE, URINE AUTO NEGATIVE (NEGATIVE); PROTEIN, URINE AUTO NEGATIVE (NEGATIVE); RBC, URINE AUTO 7 /HPF (0-3); SPECIFIC GRAVITY URINE AUTO 1.014 (1.002-1.035); SQUAMOUS EPITHELIAL CELL UR AU 1 /HPF (0-6); TRANSITIONAL EPITHELIAL AUTO 1 /HPF; UROBILINOGEN, URINE AUTO 0.2 mg/dL (0.0-2.0); WBC, URINE AUTO 116 /HPF (0-3)
[2018-10-07 17:03] LABS: TOTAL PROTEIN,RANDOM URINE 32.7 MG/DL (0.0-12.0)
[2018-10-07 20:00] VITALS: BP 142/63
[2018-10-07] MEDS: SERTRALINE HCL 50 MG TAB PO SCH (20:47)
[2018-10-07 23:59] VITALS: BP 112/48
[2018-10-08 04:00] VITALS: BP 137/55
[2018-10-08 06:05] LABS: HEMATOCRIT 27.8 % (36.0-47.0); MEAN CORPUSCULAR HEMOGLOBIN 27.7 pg (27.0-33.0); MEAN CORPUSCULAR HGB CONC 32.4 g/dl (32.0-36.5); MEAN CORPUSCULAR VOLUME 85.5 fl (80.0-96.0); PLATELET COUNT, AUTOMATED 203 10^3/uL (150-450); RED BLOOD COUNT 3.25 10^6/uL (4.00-5.40)
[2018-10-08 06:21] LABS: ALBUMIN 3.1 GM/DL (3.2-5.2); BILIRUBIN,TOTAL 0.3 MG/DL (0.2-1.0); CALCIUM LEVEL 8.5 MG/DL (8.8-10.2); CREATININE FOR GFR 2.08 MG/DL (0.55-1.30); GLOMERULAR FILTRATION RATE 25.3 (>45); POTASSIUM SERUM 4.1 MEQ/L (3.5-5.1)
[2018-10-08 07:47] VITALS: BP 137/62
[2018-10-08] MEDS: ASPIRIN 81 MG ENTERIC TAB PO SCH (09:06)
[2018-10-08] MEDS: CALCIUM ACETATE 667 MG GELCAP PO SCH ×3 (09:06→18:00)
[2018-10-08] MEDS: HEPARIN SOD (PORCINE) 5000 UNITS/ML VIAL SC SCH ×2 (09:06→20:07)
[2018-10-08] MEDS: HumaLOG INSULIN (NovoLOG) PER UNIT SC SCH ×4 (09:07→20:07)
[2018-10-08 11:49] VITALS: BP 136/61
--- NOTE | 2018-10-08 12:05 | IPNPDOC ---
Subjective Date Seen The patient was seen on 10/08/18. Subjective Chief Complaint/HPI Patient seen and examined at bedside. No acute overnight events noted. She is awaiting a outpatient dialysis seat at this time. PFS on board. Objective Physical Examination General Exam: Positive: Alert, Cooperative, No Acute Distress ENT Exam: Positive: Atraumatic, Mucous membr. moist/pink Neck Exam: Negative: JVD Chest Exam: Positive: Clear to auscultation, Normal air movement Heart Exam: Positive: Rate Normal, Normal S1, Normal S2 Abdomen Exam: Positive: Soft; Negative: Tenderness Extremity Exam: Negative: Tenderness, Swelling Psych Exam: Positive: Oriented x 3 Assessment /Plan Plan/VTE VTE Prophylaxis Ordered?: Yes Plan Acute Renal Failure 2/2 Intractable N/V/D while concomitantly on NEREIAD- I/Metformin/Diuretic Therapy s/p Permacath placement on 10/04 Nephrology on board for further mgmt of dialysis PFS consult has been placed for outpatient dialysis arrangement Non Anion-gap Metabolic Acidosis 2/2 Acute Renal Failure, Diarrhea, resolved Normocytic Anemia Likely 2/2 Hemodilutional effect, and Acute Renal Failure No overt bleeding noted Iron Studies wnl Patient asymptomatic with no indication for transfusion at this time Hyperkalemia 2/2 Above, resolved Diarrhea, resolved GI Panel negative Imodium prn Leukocytosis likely Reactive, resolved Diabetes Mellitus ISS ordered HTN Hold meds at this time 2/2 ARF Anxiety/Depression Cont Sertraline DVT Prophylaxis Heparin SC Dispo--pending clinical improvement, arrangement of outpatient dialysis by PFS. VS, I&O, 24H, Fishbone Vital Signs/I&O Vital Signs Date Time Temp Pulse Resp B/P (MAP) Pulse Ox O2 Delivery O2 Flow Rate FiO2 10/08/18 11:49 97.0 72 18 136/61 (86) 99 10/02/18 14:44 Room Air I&O- Last 24 Hours up to 6 AM 10/08/18 06:00 Intake Total 390 ml Output Total 2000 ml Balance -1610 ml Laboratory Data 24H LABS Laboratory Tests 2 10/07/18 16:10: Urine Appearance HAZY, Urine Color YELLOW, Urine pH 5.0, Urine Specific [place] 1.014, Urine Protein NEGATIVE, Urine Glucose (UA) 1+H, Urine Ketones NEGATIVE, Urine Urobilinogen 0.2, Urine Bilirubin NEGATIVE, Urine Leukocyte Esterase 2+H, Urine Blood NEGATIVE, Urine Nitrite NEGATIVE, Urine WBC (Auto) 116H, Urine RBC (Auto) 7H, Urine Hyaline Casts (Auto) 0, Urine Bacteria (Auto) 1+H, Urine Squamous Epithelial Cells 1, Urine Transitional Epithelial Cells 1, Urine Mucus (Auto) SMALL, Urine Sperm (Auto) , Urine Random Creatinine 204.0, Urine Random Total Protein 32.7H 10/07/18 16:24: Bedside Glucose (Misc Panel) 197H 10/07/18 20:00: Bedside Glucose (Misc Panel) 246H 10/08/18 05:41: Nucleated Red Blood Cells % (auto) 0.2H, Anion Gap 7L, Glomerular Filtration Rate 25.3L, Blood Urea Nitrogen 14, Creatinine 2.08H, Sodium Level 138, Potassium Level 4.1, Chloride Level 107, Carbon Dioxide Level 24, Calcium Level 8.5L, Aspartate Amino Transf (AST/SGOT) 22, Alanine Aminotransferase (ALT/SGPT) 25, Alkaline Phosphatase 38L, Total Bilirubin 0.3, Total Protein 6.0L, Albumin 3.1L, Albumin/Globulin Ratio 1.07 CBC/BMP Laboratory Tests 10/08/18 05:41 Red Blood Count 3.25 L, Mean Corpuscular Volume 85.5, Mean Corpuscular Hemoglobin 27.7, Mean Corpuscular Hemoglobin Concent 32.4, Red Cell Distribution Width 13.4, Calcium Level 8.5 L, Aspartate Amino Transf (AST/SGOT) 22, Alanine Aminotransferase (ALT/SGPT) 25, Alkaline Phosphatase 38 L, Total Bilirubin 0.3, Total Protein 6.0 L, Albumin 3.1 L Microbiology Microbiology 10/02/18 Gastrointestinal Tract Panel (PCR) - Final, Complete TERI SOTELO MD October 08, 2018 12:05
--- NOTE | 2018-10-08 13:50 | IPNPDOC ---
Text Note Date of Service The patient was seen on 10/08/18. NOTE Nephrology Service: Subjective: Patient seen and examined at bedside. Is afebrile and hemodynamically stable today. She denies any acute complaints today. Does still make some urine and made 400 mL yesterday. Denies hematuria, dysuria, urinary frequency/urgency. Denies fevers, chills, chest pain, SOB, nausea, vomiting, diarrhea, abdominal pain, constipation. Is eating and drinking normally. Had dialysis yesterday and 1500 mL was dialyzed out yesterday. Tolerated procedure without complications. Objective: Vitals: T: 97.0 BP: 136/61 RR: 18 P: 72 O2 Saturation: 99% room air Weight: 63.1 kg yesterday and 62.2 kg today Intake: 390 ml Output: 1900 mL Balance: (-) 1510 ml General: AAO x 3. Lying in hospital bed comfortably. NAD. Pleasant and cooperative. HEENT: Head: normocephalic, atraumatic. Eyes: sclera nonicteric, EOMI. Neck: Supple. No JVD. Chest: Has R IJ tunneled hemodialysis permacath catheter without any signs of infection or erythema. Respiratory: Clear to auscultation bilaterally with no wheezes, rales, or rhonchi. Cardiovascular: (+)S1S2, regular rate and rhythm, with no murmurs, rubs or gallops. Abdomen: Soft, nontender, nondistended, normoactive bowel sounds. No hepatosplenomegaly appreciated. Extremities: No clubbing, cyanosis, edema. (+)R wrist IV line in place. Musculoskeletal: Normal ROM on inspection. Neurological: No focal neurologic deficits appreciated bilaterally. Laboratory data: CBC is remarkable for WBC 8.0, RBC 3.25, Hgb 9.0, Hct 27.8, MCV 85.5, RDW 13.4, MCHC 32.4, platelets 203. BMP is remarkable for Na 138, K 4.1, CO2 24, BUN 14, Cr 2.08, GFR 25.3, glucose 152, Calcium 8.5. Liver Profile on 10/08/18: Total Bilirubin: 0.3, AST: 22, ALT 25, Alk Phos: 38 (L), Total Protein: 6.0 (L), Albumin: 3.1 (L) PTH Intact on 10/04/18: 58.3 UA on 10/07/18: Remarkable for 1 (+) glucose, 2 (+)leukocyte esterase, 116 WBC (H), 7 RBCs (H), 1 (+) Bacteria (H), Random Total Protein: 32.7 (H) POC Glucose: 204 (H) Serology: Hep Bs Antigen, Hep Bs Antibody, Hep B Core IgG Ab, Hep B Core IgM Ab were all negative. Hepatitis C Ab Index: <0.0 Microbiology: GI Tract Panel: (-) Imaging: No new imaging today. Current Inpatient Medications: Phoslo (calcium acetate) 667 mg WM PO Aranesp (Darbepoetin [facility] Use) 100 mcg HD IV Venofer (Iron) 100 mg HD IV Humalog ISS SC at and QHS No other change in the medications today as compared with yesterday. Assessment/Plan: 1. Acute renal failure: Renal function/creatinine stable. Had dialysis yesterday for three hours and was dialyzed 1500 mL yesterday. Patient still dialysis dependent. Will continue to monitor BMP for improvement in renal function/recovery. As per Dr. Lowry, patient does not need to stay in the hospital. Patient is waiting for a dialysis spot, which may take some time. However, patient can be started on dialysis as outpatient basis 3 times per week. Has R IJ tunneled permacath. We will continue dialysis for now. If needed, will get AV fistula as outpatient. Thus far, no signs of renal recovery unfortunately. 2. Hypertension: BP stable and in acceptable range. No signs of hypotension. Do not need to begin any antihypertensives at this time. Will continue to monitor BPs. 3. Anemia with renal failure: Hgb stable and was 9.0 today as compared to 8.5 yesterday. Will continue Aranesp and Venofer with hemodialysis. Continue to monitor CBC. 4. Hyperphosphatemia: Continue to monitor phosphorus level as needed. Continue Phoslo one tablet PO with meals TID. PTH intact done last was 58.3 on 10/04/18, which was WNL. DISPOSITION: Dr. Lowry has called the dialysis center to make a spot for her . However, he stated in his last note that they have not received the application so far. Patient is optimized from Nephrology standpoint to be discharged as soon as she has a chair time available at the outpatient dialysis center. Acute renal failure management is planned to be done as outpatient. My preceptor for this patient encounter was Dr. Shabbir Lowry, and was physically present in the building during the encounter and was fully available. As needed, all aspects of the patient interview, examination, medical decision making process, and medical care plan development were reviewed and approved by the preceptor. Preceptor is aware and concurs with the plan as stated in the body of this note and will attest to such by his/her cosignature. A-FIB/CHADSVASC A-FIB History Current/History of A-Fib/PAF?: No Current Oral Anticoagulant The: No VS,Fishbone, I+O VS, Fishbone, I+O Laboratory Tests 10/08/18 05:41 Red Blood Count 3.25 L, Mean Corpuscular Volume 85.5, Mean Corpuscular Hemoglobin 27.7, Mean Corpuscular Hemoglobin Concent 32.4, Red Cell Distribution Width 13.4, Calcium Level 8.5 L, Aspartate Amino Transf (AST/SGOT) 22, Alanine Aminotransferase (ALT/SGPT) 25, Alkaline Phosphatase 38 L, Total Bilirubin 0.3, Total Protein 6.0 L, Albumin 3.1 L Vital Signs Date Time Temp Pulse Resp B/P (MAP) Pulse Ox O2 Delivery O2 Flow Rate FiO2 10/08/18 11:49 97.0 72 18 136/61 (86) 99 10/02/18 14:44 Room Air I&O- Last 24 Hours up to 6 AM 10/08/18 06:00 Intake Total 390 ml Output Total 2000 ml Balance -1610 ml Attending Note Attending Note Pt was seen and examined A: Acute Renal failure Anemia in acute renal failure DM Type 2 P: No signs of renal recovery so far. Cont HD TIW as outpatient. Anemia management with Iron/RAUL as per protocol cont PO4 binder. Weekly labs outpatient to check for renal recovery. No need of antihypertensive at this time. OK to Dc home when HD chair time available. Avoid use of Metformin. OK to use sulfonylurea or Insulin. TERI ROSSI DO October 08, 2018 13:50 SHABBIR LOWRY MD October 11, 2018 16:31
[2018-10-08 16:00] VITALS: BP 130/56
[2018-10-08 19:09] VITALS: BP 129/55
[2018-10-08] MEDS: SERTRALINE HCL 50 MG TAB PO SCH (20:07)
[2018-10-08] MEDS: ACETAMINOPHEN TAB 650MG DOSE (2X325MG) PO PRN (20:10)
[2018-10-09] VITALS: BP 143/69
[2018-10-09] MEDS: LOPERAMIDE 2 MG CAP PO PRN (03:24)
[2018-10-09 04:00] VITALS: BP 151/67
[2018-10-09 04:42] LABS: HEMATOCRIT 28.7 % (36.0-47.0); HEMOGLOBIN 9.3 g/dl (12.0-15.5); MEAN CORPUSCULAR HEMOGLOBIN 28.4 pg (27.0-33.0); MEAN CORPUSCULAR HGB CONC 32.4 g/dl (32.0-36.5); MEAN CORPUSCULAR VOLUME 87.5 fl (80.0-96.0); PLATELET COUNT, AUTOMATED 211 10^3/uL (150-450); RED BLOOD COUNT 3.28 10^6/uL (4.00-5.40); WHITE BLOOD COUNT 8.7 10^3/uL (4.0-10.0)
[2018-10-09 05:03] LABS: BILIRUBIN,TOTAL 0.4 MG/DL (0.2-1.0); CREATININE FOR GFR 2.3 MG/DL (0.55-1.30); GLOMERULAR FILTRATION RATE 22.5 (>45); POTASSIUM SERUM 4.1 MEQ/L (3.5-5.1); TOTAL PROTEIN 6.3 GM/DL (6.4-8.2)
[2018-10-09 07:56] VITALS: BP 143/60
[2018-10-09] MEDS: CALCIUM ACETATE 667 MG GELCAP PO SCH ×3 (08:31→18:38)
[2018-10-09] MEDS: HumaLOG INSULIN (NovoLOG) PER UNIT SC SCH ×4 (08:31→20:33)
[2018-10-09] MEDS: HEPARIN SOD (PORCINE) 5000 UNITS/ML VIAL SC SCH ×2 (08:31→20:32)
[2018-10-09] MEDS: ASPIRIN 81 MG ENTERIC TAB PO SCH (08:31)
[2018-10-09] MEDS ORDERED: HEPARIN 1,000 UNITS/ML 10ML VIAL (FOR RADIOLOGY& DIALYSIS ONLY) IV ONE (11:15)
[2018-10-09] MEDS ORDERED: HEPARIN 1,000 UNITS/ML 10ML VIAL (FOR RADIOLOGY& DIALYSIS ONLY) XX ONE (11:15)
--- NOTE | 2018-10-09 11:26 | IPNPDOC ---
Subjective Date Seen The patient was seen on 10/09/18. Subjective Chief Complaint/HPI She is seen and examined at the bedside. No acute overnight events noted. Patient is still awaiting a outpatient dialysis chair. Objective Physical Examination General Exam: Positive: Alert, Cooperative, No Acute Distress ENT Exam: Positive: Atraumatic, Mucous membr. moist/pink Neck Exam: Negative: JVD Chest Exam: Positive: Clear to auscultation, Normal air movement Heart Exam: Positive: Rate Normal, Normal S1, Normal S2 Abdomen Exam: Positive: Soft; Negative: Tenderness Extremity Exam: Negative: Tenderness, Swelling Psych Exam: Positive: Oriented x 3 A-FIB/CHADSVASC A-FIB History Current/History of A-Fib/PAF?: No Assessment /Plan Plan/VTE VTE Prophylaxis Ordered?: Yes Plan Acute Renal Failure 2/2 Intractable N/V/D while concomitantly on NEREIDA- I/Metformin/Diuretic Therapy s/p Permacath placement on 10/04 Nephrology on board for further mgmt of dialysis PFS consult has been placed for outpatient dialysis arrangement Non Anion-gap Metabolic Acidosis 2/2 Acute Renal Failure, Diarrhea, resolved Normocytic Anemia Likely 2/2 Hemodilutional effect, and Acute Renal Failure No overt bleeding noted Iron Studies wnl Patient asymptomatic with no indication for transfusion at this time Hyperkalemia 2/2 Above, resolved Diarrhea, resolved GI Panel negative Imodium prn Leukocytosis likely Reactive, resolved Diabetes Mellitus ISS ordered HTN Hold meds at this time 2/2 ARF Anxiety/Depression Cont Sertraline DVT Prophylaxis Heparin SC Dispo--pending arrangement of outpatient dialysis by PFS. VS, I&O, 24H, Fishbone Vital Signs/I&O Vital Signs Date Time Temp Pulse Resp B/P (MAP) Pulse Ox O2 Delivery O2 Flow Rate FiO2 10/09/18 07:56 96.7 71 18 143/60 (87) 96 I&O- Last 24 Hours up to 6 AM 10/09/18 06:00 Intake Total 690 ml Output Total 450 ml Balance 240 ml Laboratory Data 24H LABS Laboratory Tests 2 10/08/18 12:12: Bedside Glucose (Misc Panel) 204H 10/08/18 17:09: Bedside Glucose (Misc Panel) 200H 10/08/18 20:06: Bedside Glucose (Misc Panel) 140H 10/09/18 04:19: Nucleated Red Blood Cells % (auto) 0.2H 10/09/18 04:20: Anion Gap 7L, Glomerular Filtration Rate 22.5L, Blood Urea Nitrogen 20H, Creatinine 2.30H, Sodium Level 138, Potassium Level 4.1, Chloride Level 108H, Carbon Dioxide Level 23, Calcium Level 8.0L, Aspartate Amino Transf (AST/SGOT) 20, Alanine Aminotransferase (ALT/SGPT) 24, Alkaline Phosphatase 42L, Total Bilirubin 0.4, Total Protein 6.3L, Albumin 3.0L, Albumin/Globulin Ratio 0.91L CBC/BMP Laboratory Tests 10/09/18 04:19 Red Blood Count 3.28 L, Mean Corpuscular Volume 87.5, Mean Corpuscular Hemoglobin 28.4, Mean Corpuscular Hemoglobin Concent 32.4, Red Cell Distribution Width 13.4 10/09/18 04:20 Calcium Level 8.0 L, Aspartate Amino Transf (AST/SGOT) 20, Alanine Aminotransferase (ALT/SGPT) 24, Alkaline Phosphatase 42 L, Total Bilirubin 0.4, Total Protein 6.3 L, Albumin 3.0 L Microbiology Microbiology 10/02/18 Gastrointestinal Tract Panel (PCR) - Final, Complete TERI SOTELO MD October 09, 2018 11:26
[2018-10-09 13:56] VITALS: BP 135/65
[2018-10-09 16:00] VITALS: BP 106/53
[2018-10-09 20:00] VITALS: BP 146/62
[2018-10-09] MEDS: SERTRALINE HCL 50 MG TAB PO SCH (20:32)
[2018-10-09] MEDS: ACETAMINOPHEN TAB 650MG DOSE (2X325MG) PO PRN (20:33)
--- NOTE | 2018-10-09 20:38 | IPN ---
DATE: 10/09/2018 SUBJECTIVE: The patient was seen and examined at the bedside today morning during hemodialysis procedure. She is tolerating the hemodialysis procedure well. She reports that she still has urine output; however, I do not see stabilization of her creatinine between hemodialysis session. Creatinine still rises between dialysis sessions. Electrolytes are within the acceptable range. OBJECTIVE: Vital signs: Temperature is 96.7 degrees Fahrenheit, blood pressure 143/60, pulse is 71, respiratory rate of 18, saturating 96% on room air. Intake and output: Urine output recorded as 150 mL since overnight, 450 mL yesterday. Weight on the bed scale is 61.5 kg. PHYSICAL EXAMINATION: General: The patient is awake, alert, oriented times three, laying in bed getting hemodialysis done, no apparent distress. Head and neck exam: Extraocular muscles intact. Pupils equally round and reactive to light. Mucous membranes are moist. Neck is supple. She has a right internal jugular (IJ) tunneled hemodialysis catheter. Cardiovascular: S1, S2, regular rate. No murmur, rub, or gallop. Respiratory: Chest is clear to auscultation bilaterally. Bilateral equal air entry. No rales or rhonchi. Abdomen: Soft. Positive bowel sounds. Nontender. No organomegaly. Musculoskeletal: No clubbing or cyanosis. Pulses are 2+. DATA ANALYST: No focal deficit. Power is 5/5 in all extremities. LAB REVIEW: CBC showed a WBC of 8.7, hemoglobin 9.3, platelets are 211. BMP showed sodium 138, potassium of 4.1, chloride 108, bicarbonate 23, BUN 20, creatinine is 2.3, calcium is 8, albumin 3. CURRENT INPATIENT MEDICATIONS: The patient's medications were all reviewed by me. There is no change in the medications today as compared with yesterday. ASSESSMENT/PLAN: 1. Acute renal failure. The patient is still oliguric. There is no significant improvement in the renal function. She is still dialysis dependent. We will continue to monitor her renal function. Continued three times a week hemodialysis now. 2. Hypertension. Blood pressure is acceptable at this time. No need of antihypertensives at this point. Blood pressure is being optimized with volume management. 3. Anemia in renal failure. Hemoglobin is 9.3, which is improving. Continue current dose of Aranesp and Venofer with hemodialysis. 4. Disposition: The patient is optimized from a nephrology standpoint to be discharged home whenever she gets a chair available at outpatient dialysis center.
[2018-10-10 04:00] VITALS: BP 130/62
[2018-10-10 08:00] VITALS: BP 129/83
[2018-10-10] MEDS: HEPARIN SOD (PORCINE) 5000 UNITS/ML VIAL SC SCH (08:18)
[2018-10-10] MEDS: CALCIUM ACETATE 667 MG GELCAP PO SCH (08:19)
[2018-10-10] MEDS: HumaLOG INSULIN (NovoLOG) PER UNIT SC SCH (08:19)
[2018-10-10] MEDS: ASPIRIN 81 MG ENTERIC TAB PO SCH (08:19)
[2018-10-10 09:06] LABS: BASO % 0.4 % (0.0-1.0); EOS # 0.1 10^3/uL (0.0-0.50); EOS % 1.5 % (0.0-3.0); HEMOGLOBIN 9.5 g/dl (12.0-15.5); LYMPH # 1.3 10^3/uL (1.5-4.5); LYMPH % 16.7 % (24.0-44.0); MEAN CORPUSCULAR HEMOGLOBIN 27.8 pg (27.0-33.0); MEAN CORPUSCULAR HGB CONC 31.7 g/dl (32.0-36.5); MEAN CORPUSCULAR VOLUME 87.7 fl (80.0-96.0); MONO # 0.9 10^3/uL (0.0-0.8); MONO % 11.1 % (0.0-5.0); NEUTROPHILS # 5.3 10^3/uL (1.8-7.7); NEUTROPHILS % 68.2 % (36.0-66.0); PLATELET COUNT, AUTOMATED 140 10^3/uL (150-450); RED BLOOD COUNT 3.42 10^6/uL (4.00-5.40); WHITE BLOOD COUNT 7.8 10^3/uL (4.0-10.0)
[2018-10-10 09:25] LABS: CALCIUM LEVEL 8.3 MG/DL (8.8-10.2); CREATININE FOR GFR 2.35 MG/DL (0.55-1.30); POTASSIUM SERUM 3.9 MEQ/L (3.5-5.1)
[2018-10-10] MEDS ORDERED: HYDR-3910 PO (10:53)
[2018-10-10] MEDS ORDERED: GLIP5TAB8 PO (10:53)
--- NOTE | 2018-10-10 12:31 | DS.PDOC ---
Discharge Summary General Date of Admission Oct 02, 2018 at 17:07 Date of Discharge 10/10/18 Specialist/Consultants Involve Dr. Lowry of Nephrology, Dr. Kenny of Vascular Surgery Discharge Summary PROCEDURES PERFORMED DURING STAY: s/p Permacath placement on 10/04 by vascular surgery ADMITTING/DISCHARGE DIAGNOSES: Acute Renal Failure 2/2 Intractable N/V/D while concomitantly on NEREIDA- I/Metformin/Diuretic Therapy Diabetes mellitus Hypertension Anemia COMPLICATIONS/CHIEF COMPLAINT: Acute Renal Failure. HISTORY OF PRESENT ILLNESS: . 68-year-old female with past medical history of hypertension, diabetes mellitus, dyslipidemia, GERD, and chronic lower extremity edema on diuretic therapy presents to the ER with a chief complaint of abdominal pain, nausea/vomiting/diarrhea, and weakness. The patient states that for the past 10 days she has been having intractable nausea/vomiting/diarrhea. She denies any fevers, chills, sick contacts, recent antibiotic use, hospitalization, or recent travel. Of note, the patient states that she continued to take her diuretic therapy, lisinopril, and metformin during this time while she was having diarrhea. Also of note, the patient states that she was recently 3 weeks ago started on spironolactone by her PCP, but notes that she stopped taking it approximately 2 weeks ago due to the diarrhea. In the ER, the patient was noted to be in acute renal failure. She will be admitted to the hospitalist service, and a consult has been placed to nephrology for further evaluation and management. HOSPITAL COURSE: . Acute Renal Failure 2/2 Intractable N/V/D while concomitantly on NEREIDA- I/Metformin/Diuretic Therapy The patient's renal function unfortunately did not recover following IV fluid hydration and withholding of nephrotoxins s/p Permacath placement on 10/04 by vascular surgery Nephrology has been consulted here and will follow the patient in the outpatient setting for regularly scheduled dialysis The patient has been arrange an outpatient dialysis chair for 10/12/18 at 5:15 PM Non Anion-gap Metabolic Acidosis 2/2 Acute Renal Failure, Diarrhea, resolved Normocytic Anemia Likely 2/2 Hemodilutional effect, and Acute Renal Failure No overt bleeding noted Iron Studies wnl Patient asymptomatic with no indication for transfusion at this time Hyperkalemia 2/2 Above, resolved Diarrhea, resolved GI Panel negative Imodium prn Leukocytosis likely Reactive, resolved Diabetes Mellitus Patient started on glipizide HTN Lisinopril, spironolactone discontinued Patient states that she cannot tolerate Norvasc as she had increased lower extremity swelling in the past Hydralazine twice a day added for outpatient Anxiety/Depression Cont Sertraline DISCHARGE MEDICATIONS: Please see below. ALLERGIES: Please see below. PHYSICAL EXAMINATION ON DISCHARGE: VITAL SIGNS: Please see below. General Exam: Positive: Alert, Cooperative, No Acute Distress ENT Exam: Positive: Atraumatic, Mucous membr. moist/pink Neck Exam: Negative: JVD Chest Exam: Positive: Clear to auscultation, Normal air movement Heart Exam: Positive: Rate Normal, Normal S1, Normal S2 Abdomen Exam: Positive: Soft; Negative: Tenderness Extremity Exam: Negative: Tenderness, Swelling Psych Exam: Positive: Oriented x 3 LABORATORY DATA: Please see below. IMAGING: CT ABDOMEN AND PELVIS WITHOUT IV OR ORAL CONTRAST: HISTORY: Renal failure. Elevated lipase. 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 The lung bases are clear on axial CT images. There is no evidence of pleural effusion or upper abdominal ascites. The liver and the spleen are normal in size. Vascular calcification is noted. There are calcifications in the pancreatic head suggestive of chronic pancreatitis pattern. No cyst or mass lesion is seen. No retroperitoneal adenopathy is observed. There is extensive calcific plaquing of the abdominal aorta which is small. I suspect aortic stenosis. The common iliac arteries are quite small as well and show extensive calcific plaquing suggesting stenosis. The kidneys are morphologically intact. No retroperitoneal mass or adenopathy is seen. No obstructive gastrointestinal lesion is seen. There is a calcified uterine myoma seen. The calcification associated with this is 1.5 cm in diameter. No bladder lesion is seen. No other uterine mass is observed. No ovarian abnormality is seen. No abdominal wall defect is appreciated. There is a polypoid fat density lesion in the ascending colon consistent with a small benign colon lipoma. This measures 1.4 x 0.9 x 2.4 cm in diameter. The appendix is surgically absent. IMPRESSION: The kidneys are unremarkable. No evidence of obstruction. There is heavy vascular calcification in a diminutive abdominal aorta and common iliac arteries consistent with atherosclerotic disease with stenosis. There is a lipomas polyp of the ascending colon measuring 2.4 cm in greatest diameter noted incidentally. A densely calcified uterine myoma is noted as well. EXAM: US Retroperitoneal Limited, Kidneys EXAM DATE/TIME: 10/03/2018 6:37 AM CLINICAL HISTORY: 68 years old, female; acute renal failure TECHNIQUE: Imaging protocol: Real-time ultrasound of the retroperitoneum with image documentation. Examination was focused on the kidneys. COMPARISON: CT ABD PELVIS W/O CONTRAST 10/02/2018 4:36 PM The report from this study was not available for review at the time of this interpretation. FINDINGS: Right kidney: The right kidney is normal in appearance and measures 12.8 cm x 5.5 cm x 6.1 cm. There is no renal cortical thinning. The renal cortical echogenicity is within normal limits. No renal lesion is seen. There is no hydronephrosis. No obvious stones are seen in the renal collecting system. Left kidney: The left kidney measures 13.4 cm x 4.5 cm x 6.8 cm. There is no renal cortical thinning. The renal cortical echogenicity is within normal limits. There is a 7 mm x 5 mm x 8 mm round echogenic lesion without internal vascularity in the cortex of the middle third of the left kidney, which is compatible with an angiomyolipoma on comparison with the CT scan on 10/02/2018. There is no hydronephrosis. No obvious stones are seen in the renal collecting system. Bladder: The partially distended urinary bladder is unremarkable. IMPRESSION: 1. No acute sonographic findings involving the kidneys. No hydronephrosis. 2. 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 PROGNOSIS: Fair ACTIVITY: As tolerated. DIET: Renal diet DISCHARGE PLAN: DISPOSITION: Home DISCHARGE INSTRUCTIONS: Follow-up primary care physician within one week. Follow-up with nephrology as an outpatient as scheduled. Follow-up with regularly scheduled dialysis sessions beginning 10/12/18 at 5:15 pm. DISCHARGE CONDITION: Stable. TIME SPENT ON DISCHARGE: Greater than 30 minutes. Vital Signs/I&Os Vital Signs Date Time Temp Pulse Resp B/P (MAP) Pulse Ox O2 Delivery O2 Flow Rate FiO2 10/10/18 08:00 96.2 84 18 129/83 (98) 96 I&O- Last 24 Hours up to 6 AM 10/10/18 06:00 Intake Total 1180 ml Output Total 1050 ml Balance 130 ml Laboratory Data Labs 24H Laboratory Tests 2 10/09/18 14:13: Bedside Glucose (Misc Panel) 136H 10/09/18 17:27: Bedside Glucose (Misc Panel) 265H 10/09/18 20:25: Bedside Glucose (Misc Panel) 145H 10/10/18 06:57: Bedside Glucose (Misc Panel) 141H 10/10/18 08:31: Immature Granulocyte % (Auto) 2.1, White Blood Count 7.8, Red Blood Count 3.42L, Hemoglobin 9.5L, Hematocrit 30.0L, Mean Corpuscular Volume 87.7, Mean Corpuscular Hemoglobin 27.8, Mean Corpuscular Hemoglobin Concent 31.7L, Red Cell Distribution Width 13.5, Platelet Count 140L, Neutrophils (%) (Auto) 68.2H, Lymphocytes (%) (Auto) 16.7L, Monocytes (%) (Auto) 11.1H, Eosinophils (%) (Auto) 1.5, Basophils (%) (Auto) 0.4, Neutrophils # (Auto) 5.3, Lymphocytes # (Auto) 1.3L, Monocytes # (Auto) 0.9H, Eosinophils # (Auto) 0.1, Basophils # (Auto) 0.0, Nucleated Red Blood Cells % (auto) 0.3H, Anion Gap 6L, Glomerular Filtration Rate 22.0L, Blood Urea Nitrogen 19H, Creatinine 2.35H, Sodium Level 136, Potassium Level 3.9, Chloride Level 102, Carbon Dioxide Level 28, Calcium Level 8.3L CBC/BMP Laboratory Tests 10/10/18 08:31 Red Blood Count 3.42 L, Mean Corpuscular Volume 87.7, Mean Corpuscular Hemoglobin 27.8, Mean Corpuscular Hemoglobin Concent 31.7 L, Red Cell Distribut ion Width 13.5, Neutrophils (%) (Auto) 68.2 H, Lymphocytes (%) (Auto) 16.7 L, Monocytes (%) (Auto) 11.1 H, Eosinophils (%) (Auto) 1.5, Basophils (%) (Auto) 0.4, Neutrophils # (Auto) 5.3, Lymphocytes # (Auto) 1.3 L, Monocytes # (Auto) 0.9 H, Eosinophils # (Auto) 0.1, Basophils # (Auto) 0.0, Calcium Level 8.3 L FSBS Laboratory Tests Test 10/09/18 14:13 10/09/18 17:27 10/09/18 20:25 10/10/18 06:57 Range/Units Bedside Glucose (Misc Panel) 136 265 145 141 80-115 MG/DL Microbiology Microbiology 10/02/18 Gastrointestinal Tract Panel (PCR) - Final, Complete Discharge Medications Scheduled Ascorbic Acid (Vitamin C) 500 Mg Tablet, 500 MG PO DAILY, (Reported) Aspirin (Aspir 81) 81 Mg Tablet.dr, 81 MG PO DAILY, (Reported) Fenofibrate Nanocrystallized (Fenofibrate) 145 Mg Tab, 145 MG PO DAILY, (Reported) Glipizide (Glipizide) 5 Mg Tablet, 0.5 TAB PO DAILY Hydralazine HCl (Hydralazine HCl) 25 Mg Tablet, 1 TAB PO BID Latanoprost (Xalatan) 0.005% 2.5ML Drops, 1 DROP OU QHS, (Reported) Metoprolol Succinate (Metoprolol Succinate) 200 Mg Tab.er.24h, 200 MG PO QHS, (Reported) Omeprazole (Omeprazole) 20 Mg Cap, 20 MG PO DAILY, (Reported) Sertraline HCl (Sertraline HCl) 50 Mg Tab, 50 MG PO QHS, (Reported) Simvastatin (Simvastatin) 40 Mg Tab, 40 MG PO QHS, (Reported) Vitamin D (Vitamin D3) 1,000 Unit Tablet, 1,000 UNITS PO DAILY, (Reported) Scheduled PRN Acetaminophen (Tylenol Extra Strength) 500 Mg Tablet, 500 MG PO Q6H PRN for PAIN, (Reported) Allergies Coded Allergies: azithromycin (Verified Allergy, Unknown, 10/02/18) BREAKOUT TERI SOTELO MD October 10, 2018 12:31
--- NOTE | 2018-10-10 13:37 | IPNPDOC ---
Text Note Date of Service The patient was seen on 10/10/18. NOTE Nephrology Service: Subjective: Patient seen and examined at bedside. Is afebrile and hemodynamically stable today. She denies any acute complaints today. Had dialysis yesterday with 1000 mL removed. Does still make some urine and made 150 mL yesterday. Tolerated procedure without complications. Denies hematuria, dysuria, urinary frequency/urgency. Denies fevers, chills, chest pain, SOB, nausea, vomiting, diarrhea, abdominal pain, constipation. Is eating and drinking normally. Does admit to feeling a bit fatigued today and having decreased appetite at times. Objective: Vitals: T: 96.2 BP: 129/83 RR: 18 P: 84 O2 Saturation: 96% room air Weight: 61.5 kg yesterday and 60.9 kg today Intake: 930 ml Output: 1150 mL Balance: (-) 220 ml Urine Output: 0.10 mL/kg/hr BMs: 3 yesterday General: AAO x 3. Sitting up in hospital bed comfortably. NAD. Pleasant and cooperative. HEENT: Head: normocephalic, atraumatic. Eyes: sclera nonicteric, EOMI. Neck: Supple. No JVD. Chest: Has R IJ tunneled hemodialysis permacath catheter without any signs of infection or erythema. Respiratory: Clear to auscultation bilaterally with no wheezes, rales, or rhonchi. Cardiovascular: (+)S1S2, regular rate and rhythm, with no murmurs, rubs or gallops. Abdomen: Soft, nontender, nondistended, normoactive bowel sounds. No hepatosplenomegaly appreciated. Extremities: No clubbing, cyanosis, edema. Musculoskeletal: Normal ROM on inspection. Neurological: No focal neurologic deficits appreciated bilaterally. Laboratory data: CBC is remarkable for WBC 7.8, RBC 3.42, Hgb 9.5 (L), Hct 30.0 (L), MCV 87.7, RDW 13.5, MCHC 31.7 (L), platelets 140 (L), Neut% Count: 68.2 (H), Lymph% Count: 16.7 (L), Wayne%: 11.1 (H). BMP is remarkable for Na 136, K 3.9, CO2 28, BUN 19 (H), Cr 2.35 (H), GFR 22.0 (L), glucose 155 (H), Calcium 8.3 (L). PTH Intact on 10/04/18: 58.3 UA on 10/07/18: Remarkable for 1 (+) glucose, 2 (+)leukocyte esterase, 116 WBC (H), 7 RBCs (H), 1 (+) Bacteria (H), Random Total Protein: 32.7 (H) POC Glucose: 141 (H) Serology: Hep Bs Antigen, Hep Bs Antibody, Hep B Core IgG Ab, Hep B Core IgM Ab were all negative. Hepatitis C Ab Index: <0.0 Microbiology: GI Tract Panel: (-) Imaging: No new imaging today. Current Inpatient Medications: Phoslo (calcium acetate) 667 mg WM PO Aranesp (Darbepoetin [facility] D[facility] Use) 100 mcg HD IV Venofer (Iron) 100 mg HD IV Humalog ISS SC at AC and QHS No other change in the medications today as compared with yesterday. Assessment/Plan: 1. Acute renal failure: Renal function/creatinine stable. Had dialysis yesterday with 1000 mL removed. Patient still dialysis dependent. Will continue to monitor BMP for improvement in renal function/recovery. Dr. Lowry stated that he would wait at least 1-2 weeks prior to making decision if renal function was recovering enough or not prior to make arrangements for AV fistula placement. As per Dr. Lowry, patient does not need to stay in the hospital. Patient now has dialysis spot, and will begin dialysis as outpatient on Friday. Is being discharged home today with her R IJ tunneled permacath. Patient will be started on dialysis as outpatient basis 3 times per week. We will continue dialysis for now. If needed, will get AV fistula as outpatient. Thus far, no signs of renal recovery unfortunately. 2. Hypertension: BP stable and in acceptable range. No signs of hypotension. Do not need to begin any antihypertensives at this time. Will continue to monitor BPs. BP being optimized with volume management. 3. Anemia in renal failure: Hgb stable and was 9.5 today as compared to 9.3 yesterday. Will continue Aranesp and Venofer with hemodialysis. Continue to monitor CBC. 4. Hyperphosphatemia: Continue to monitor phosphorus level as needed. Continue Phoslo one tablet PO with meals TID. PTH intact done last was 58.3 on 10/04/18, which was WNL. DISPOSITION: Dialysis spot has been received. Patient is optimized from Nephrology standpoint to be discharged today. Acute renal failure management is planned to be done as outpatient. My preceptor for this patient encounter was Dr. Shabbir Lowry, and was physically present in the building during the encounter and was fully available. As needed, all aspects of the patient interview, examination, medical decision making process, and medical care plan development were reviewed and approved by the preceptor. Preceptor is aware and concurs with the plan as stated in the body of this note and will attest to such by his/her cosignature. A-FIB/CHADSVASC A-FIB History Current/History of A-Fib/PAF?: No Current Oral Anticoagulant The: No VS,Fishbone, I+O VS, Fishbone, I+O Laboratory Tests 10/10/18 08:31 Red Blood Count 3.42 L, Mean Corpuscular Volume 87.7, Mean Corpuscular Hemoglobin 27.8, Mean Corpuscular Hemoglobin Concent 31.7 L, Red Cell Distribution Width 13.5, Neutrophils (%) (Auto) 68.2 H, Lymphocytes (%) (Auto) 16.7 L, Monocytes (%) (Auto) 11.1 H, Eosinophils (%) (Auto) 1.5, Basophils (%) (Auto) 0.4, Neutrophils # (Auto) 5.3, Lymphocytes # (Auto) 1.3 L, Monocytes # (Auto) 0.9 H, Eosinophils # (Auto) 0.1, Basophils # (Auto) 0.0, Calcium Level 8.3 L Vital Signs Date Time Temp Pulse Resp B/P (MAP) Pulse Ox O2 Delivery O2 Flow Rate FiO2 10/10/18 08:00 96.2 84 18 129/83 (98) 96 I&O- Last 24 Hours up to 6 AM 10/10/18 06:00 Intake Total 1180 ml Output Total 1050 ml Balance 130 ml Attending Note Attending Note Pt was seen and examined today AM A: Acute Renal failure Anemia DM Type2 P: Still dialysis dependent. OK to DC home. cont HD TIW and monitor weekly labs. BP is controlled. TERI ROSSI DO October 10, 2018 13:37 SHABBIR LOWRY MD October 11, 2018 17:13
--- NOTE | 2018-10-14 11:48 | RO ---
DATE OF PROCEDURE: 10/04/2018 ATTENDING SURGEON: Dr. Helena Kenny RADIO ADJUSTER: None. PREOPERATIVE DIAGNOSIS: End-stage renal disease. POSTOPERATIVE DIAGNOSIS: End-stage renal disease. PROCEDURE: Right internal jugular vein PermCath placement. INDICATION: The patient requires PermCath for placement for hemodialysis access. The patient undergo placement. Risks, benefits, and alternative treatment options were discussed with the patient. ANESTHESIA: Was local monitored anesthesia care (MAC). ESTIMATED BLOOD LOSS: Minimal. INTRAVENOUS (IV) FLUID: None. COMPLICATIONS: None. DRAINS: None. SPECIMENS: None. IMPLANTS: None. DESCRIPTION OF PROCEDURE: The patient was taken to the operating room and was placed supine on the operating room table. Ultrasound was used to guide cannulation of the right internal jugular vein. The right internal jugular vein was sequentially dilated and an introducer sheath positioned. The catheter was tunneled through a puncture wound in the right chest, placed through the introducer sheath, and positioned with the tip in the superior vena cava right atrial junction under fluoroscopic guidance. Catheter was aspirated. Both ports noted to aspirate easily and then flushed with heparinized saline. Catheter was secured to the anterior chest wall using 2-0 Prolene suture. The puncture wound in the right neck was closed using 3-0 Monocryl in an inverted interrupted fashion. Steri-Strips and dressings were applied. The patient tolerated the procedure well. All instrument, sponge, and needle counts were correct at the end of the case. There were no complications. Dr. Kenny was present for and directed the entire case. The patient was transferred to the recovery room awake, alert, extubated, and in stable condition.
== END 2018-10-10 11:58 | disposition home or self-care (01) | DRG 674 ==
LOC: M ED 14:44 → M ED INP 17:07 → M PCU 18:55
PROVIDERS: ADMIT Internal Medicine; ATTEND Internal Medicine
PROC: 02HV33Z Insertion of Infusion Device into Superior Vena Cava, Percutaneous Approach (ICD-10-PCS; 2018-10-04)
PROC: 0JH63XZ Insertion of Tunneled Vascular Access Device into Chest Subcutaneous Tissue and Fascia, Percutaneous Approach (ICD-10-PCS; principal; 2018-10-04 08:02)
DX: N17.9 Acute kidney failure, unspecified (principal); E87.2 Acidosis; E11.9 Type 2 diabetes mellitus without complications; E78.5 Hyperlipidemia, unspecified; I10 Essential (primary) hypertension; R19.7 Diarrhea, unspecified; D50.9 Iron deficiency anemia, unspecified; E83.51 Hypocalcemia; K21.9 Gastro-esophageal reflux disease without esophagitis; E87.5 Hyperkalemia; Z79.84 Long term (current) use of oral hypoglycemic drugs; Z79.899 Other long term (current) drug therapy; Z88.1 Allergy status to other antibiotic agents; Z87.891 Personal history of nicotine dependence; E83.39 Other disorders of phosphorus metabolism; T38.3X5A Adverse effect of insulin and oral hypoglycemic [antidiabetic] drugs, initial encounter; T50.2X5A Adverse effect of carbonic-anhydrase inhibitors, benzothiadiazides and other diuretics, initial encounter

== ENCOUNTER → 2018-11-02 | Outpatient (REF) | payer MEDICARE ==
[~2018-11-02] MED LIST changes: +ACET-897 PO; +ASPI81TA85 PO; +C 50TAB PO; +GLIP5TAB8 PO; +HYDR-3910 PO; +METO200T28 PO; +VITAD1000T PO; +XALA0.007 OU
[2018-11-04 19:42] LABS: CREATININE, SERUM 1.5 MG/DL (0.6-1.0)
== END ==
LOC: M LAB REF 17:37
PROVIDERS: ATTEND Internal Medicine Nephrology
DX: N17.8 Other acute kidney failure (principal); I12.9 Hypertensive chronic kidney disease with stage 1 through stage 4 chronic kidney disease, or unspecified chronic kidney disease

== ENCOUNTER → 2019-02-19 | Outpatient (REF) | payer MEDICARE ==
[~2019-02-19] MED LIST changes: +CHOL100029 PO; +METF-791 PO; -METF500T4 PO; -OMEP20CA3 PO; +OMEP20CA4 PO; -VITAD1000T PO
[2019-02-25 14:07] LABS: CREATININE,RANDOM URINE 15.6 mg/dL (Not Estab.); METANEPHRINE PLASMA 65 pg/mL (0-62); NORMETANEPHRINE PLASMA 261 pg/mL (0-145); URINE METANEPHR/CREAT RATIO 0.9 (0.0-1.0); URINE METANEPHRINES RANDOM 22 ug/L (Undefined); URINE NORMETANEPHRINES RANDOM 114 ug/L (Undefined)
== END ==
LOC: M LAB REF 13:04
PROVIDERS: ATTEND Internal Medicine Nephrology
DX: I12.9 Hypertensive chronic kidney disease with stage 1 through stage 4 chronic kidney disease, or unspecified chronic kidney disease (principal)

== ENCOUNTER → 2019-03-01 | Outpatient (CLI) | payer MEDICARE ==
--- NOTE | 2019-03-01 09:09 | REP ---
RENAL ULTRASOUND WITH DUPLEX DOPPLER EVALUATION RENAL ARTERIES: Real-time sonographic evaluation of the kidneys performed. Kidneys are normal in size and echotexture, right kidney measuring 11.5 x 5.4 x 6.0 cm and left kidney 11.9 x 5.4 x 6.2 cm. There is no hydronephrosis bilaterally. Hyperechoic area in the mid left kidney measures 8 mm in diameter compatible with a small angiomyolipoma. Ureteral jets are seen in the urinary bladder with Doppler color evaluation. Real-time ultrasound evaluation and duplex Doppler interrogation of the renal arteries is performed bilaterally. Peak systolic velocity of the abdominal aorta at the level of the renal artery is 78.3 cm/s. Peak systolic velocity of the main right renal artery is 103 cm/s, renal to aortic ratio 1.3. Resistive indices are measured in the upper, middle and lower thirds of the right kidney and range between 0.72 and 0.73. Acceleration times range between 0.029 and 0.044. Peak systolic velocity in the main left renal artery is 80.5 cm/s, renal to aortic ratio 1.0. Resistive indices left kidney range between 0.69 and 0.71. Acceleration times range between 0.022 and 0.009. IMPRESSION: Subcentimeter angiomyolipoma mid left kidney. No hydronephrosis. No compelling duplex Doppler sonographic evidence of significant renal artery stenosis bilaterally. Electronically Signed by Obey Ignacio MD 03/02/2019 09:50 A
== END ==
LOC: M RAD 07:23
PROVIDERS: ATTEND Internal Medicine Nephrology
DX: N18.3 Chronic kidney disease, stage 3 (moderate) (principal); I12.9 Hypertensive chronic kidney disease with stage 1 through stage 4 chronic kidney disease, or unspecified chronic kidney disease; E11.29 Type 2 diabetes mellitus with other diabetic kidney complication

== ENCOUNTER → 2019-03-09 | Outpatient (REF) | payer MEDICARE ==
[2019-03-12 14:22] LABS: VANILLYLMANDELIC ACID,URINE 2.2 mg/L (Undefined); VANILLYLMANDELIC ACID,URINE 24 3.3 mg/24 hr (0.0-7.5)
== END ==
LOC: M LAB REF 17:23
PROVIDERS: ATTEND Internal Medicine Nephrology
DX: I12.9 Hypertensive chronic kidney disease with stage 1 through stage 4 chronic kidney disease, or unspecified chronic kidney disease (principal)

== ENCOUNTER → 2019-05-20 | Outpatient (REF) | payer MEDICARE ==
[~2019-05-20] MED LIST changes: +OMEP-172 PO; -OMEP20CA4 PO; -SERT-155 PO; +SERT50TA29 PO; -SIMV40TA2 PO; +SIMV40TA20 PO
[2019-05-21 08:41] LABS: LDL DIRECT 70 mg/dL (0-99)
== END ==
LOC: M LAB REF 12:33
PROVIDERS: ATTEND Nurse Practitioner Adult Health
DX: E78.1 Pure hyperglyceridemia (principal)

== ENCOUNTER → 2019-08-03 | Outpatient (CLI) | payer MEDICARE ==
[~2019-08-03] MED LIST changes: -FENO145T13 PO; +FENO145T7 PO; -MECL-68 PO; +MECL1TAB31 PO; -OMEP-172 PO; +OMEP1CAP73 PO
--- NOTE | 2019-08-03 14:17 | REP ---
LEFT LOWER EXTREMITY DUPLEX DOPPLER VENOUS ULTRASOUND WITH EVALUATION FOR VENOUS REFLUX: Real-time compression and duplex Doppler interrogation of left lower extremity deep system is performed. Left common femoral, superficial and popliteal veins are fully compressible with transducer pressure and demonstrate normal spontaneous and phasic flow without evidence of deep venous thrombosis. Evaluation for venous reflux demonstrates reflux in the common femoral vein. There is an anterior accessory greater saphenous vein present without reflux. There is reflux throughout the greater saphenous vein. There is reflux in the greater saphenous vein at the saphenofemoral junction with duration of 5.6 seconds in duration, AP diameter 5 mm, at the mid thigh level 5.4 cm induration with AP diameter 4 mm, and at the knee with a duration of 5.6 seconds and AP diameter 4 mm. There is no reflux in any portion of the superficial femoral, popliteal and lesser saphenous veins. Electronically Signed by Obey Ignacio MD 08/03/2019 08:20 P
== END ==
LOC: M RAD 10:34
PROVIDERS: ATTEND Surgery
DX: L97.322 Non-pressure chronic ulcer of left ankle with fat layer exposed (principal); I87.312 Chronic venous hypertension (idiopathic) with ulcer of left lower extremity

== ENCOUNTER → 2019-10-29 | Outpatient (REF) | payer MEDICARE ==
[~2019-10-29] MED LIST changes: -METF-791 PO; +METF-838 PO
[2019-11-06 00:07] LABS: CREATININE RANDOM URINE 62.6 mg/dL (Not Estab.); VANILLYLMANDELIC ACID,URINE 2.5 mg/L (Undefined)
== END ==
LOC: M LAB REF 17:08
PROVIDERS: ATTEND Internal Medicine Nephrology
DX: I12.9 Hypertensive chronic kidney disease with stage 1 through stage 4 chronic kidney disease, or unspecified chronic kidney disease (principal)

== ENCOUNTER → 2019-12-02 | Outpatient (CLI) | payer MEDICARE ==
[~2019-12-02] MED LIST changes: +ISOVUE-370 76% 100ML VIAL As Ordered ONE
--- NOTE | 2019-12-02 11:28 | REP ---
CT STUDY ABDOMEN PELVIS WITHOUT AND DUAL-PHASE POSTCONTRAST ACQUISITIONS. HISTORY: Hypertensive chronic kidney disease. Stage III. Chronic gout. Uncontrolled hypertension and elevated norepinephrine levels on two separate lab draws. Rule out adrenal lesion. Comparison CT study is from October 02, 2018. CT CONTRAST DOSE: 100 mL of intravenous Isovue 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 The lung bases are essentially clear. Vascular calcifications noted. There are clips in the gallbladder fossa post cholecystectomy. No focal liver lesion is seen on pre- or postcontrast images. The liver is not felt to be enlarged. Spleen is homogeneous in texture and normal in size. There is no evidence of adrenal mass lesion on either side. No periaortic mass is observed. The kidneys enhance symmetrically and are morphologically intact on pre- and postcontrast studies. There is a tiny subcentimeter cyst in the lower pole of the left kidney. Delayed scan images demonstrate a 1 cm cyst in the lower pole left kidney as well. No filling defect is seen in the upper tract collecting system on either side. Vascular calcifications are noted in a normal caliber aorta. Renal arteries are singular without evidence of high-grade stenosis. There is a 2.2 cm lipoma visible in the right colon at the level of the hepatic flexure unchanged from the comparison study of 10/02/2018. There is scattered left colonic diverticulosis without CT evidence of diverticulitis. There is a calcified uterine fibroid. No adnexal abnormality is observed. Urinary bladder is unremarkable. There are several calcifications in the head of the pancreas again noted unchanged. IMPRESSION: 1. Postcholecystectomy. Chronic pancreatitis calcifications in the head of the pancreas. 2. Left colonic diverticulosis without CT evidence of diverticulitis. 3. 2.2 cm benign lipoma of the right colon at the hepatic flexure. 4. Normal adrenal glands bilaterally. No periaortic or other abdominal mass lesion seen. Electronically Signed by Eladio Alcala MD 12/02/2019 11:49 A
== END ==
LOC: M RAD 09:10
PROVIDERS: ATTEND Internal Medicine Nephrology
DX: I12.9 Hypertensive chronic kidney disease with stage 1 through stage 4 chronic kidney disease, or unspecified chronic kidney disease (principal); N18.9 Chronic kidney disease, unspecified
CPT/HCPCS: 74178; Q9967

== ENCOUNTER → 2020-06-19 | Outpatient (CLI) | payer SELFPAY ==
[~2020-06-19] MED LIST changes: -ASPI81TA85 PO; +ASPI81TA86 PO; -ISOVUE-370 76% 100ML VIAL As Ordered ONE
== END ==
LOC: M LABSMTC 13:12
PROVIDERS: ATTEND Pediatrics
DX: Z20.822 Contact with and (suspected) exposure to COVID-19 (principal)

== ENCOUNTER → 2020-07-13 | Outpatient (REF) | payer OTHER ==
[~2020-07-13] MED LIST changes: -LISI40TA PO; +LISI40TA4 PO
[2020-07-14 12:45] LABS: PERCENT SATURATION 11.3 % (13.2-45.0)
[2020-07-15 08:09] LABS: LDL DIRECT 73 mg/dL (0-99)
== END ==
LOC: M LAB REF 16:12
PROVIDERS: ATTEND Nurse Practitioner Adult Health
DX: E78.00 Pure hypercholesterolemia, unspecified (principal)

== ENCOUNTER → 2020-10-12 | Outpatient (REF) | payer MEDICARE | LOC: M LAB REF 16:14 | PROVIDERS: ATTEND Nurse Practitioner Adult Health | DX: D64.9 Anemia, unspecified (principal); E78.5 Hyperlipidemia, unspecified ==

== ENCOUNTER → 2021-02-21 | Outpatient (REF) | payer MEDICARE | LOC: M LAB REF 12:46 | PROVIDERS: ATTEND Internal Medicine Nephrology | DX: N18.32 Chronic kidney disease, stage 3b (principal) ==

== ENCOUNTER → 2021-04-03 | Outpatient (CLI) | payer MEDICARE ==
--- NOTE | 2021-04-03 16:37 | REPMRS ---
Patient History The patient states she has not had a clinical breast exam in over a year. Patient is postmenopausal. Family history of unknown cancer at age 67 in sister, breast cancer at age 28 in niece. Benign radio exam breast specimen of the left breast, August 17, 2013. Benign stereotatic loc for ea lesion of the left breast, August 17, 2013. Took hormonal contraceptives for 15 years. Patient states no breast complaints today. Patient has signed MRS History Sheet. Digital Woman Screen Mammo: April 03, 2021 - Exam #: [id number] Bilateral CC and MLO view(s) were taken. Technologist: Brandy Still, [place] Washer Prior study comparison: July 27, 2013, left breast digital mammo diagnostic unilateral, performed at [facility]. July 15, 2013, bilateral bilat screen digital mammo, performed at [facility] ([facility]). FINDINGS: The breast tissue is almost entirely fat. Screening. Digital screening (2D) mammography was performed bilaterally in the CC and MLO projections. Additionally, breast tomosynthesis (3D mammography) was performed bilaterally in the CC and MLO projections. Todays exam was compared to the prior exam/exams. By history, the patient has no complaints of a palpable breast abnormality or other significant breast complaints. The Volpara volumetric breast density category is A, the breasts are almost entirely fatty. There are two biopsy clips associated with a small, stable, isodense, mass in the left breast. The breasts are unchanged in size and shape. There are no león-soft tissue densities or spiculated masses. There is no internal architectural distortion. There are no suspicious león-calcific clusters. Skin thickening or nipple retraction is not present. IMPRESSION: BI-RADS Category 2- Benign Findings. There is no evidence of malignant alteration of the breasts. Followup examination recommended in one year. The lifetime Tyrer-Cuzick score is 5.9% This mammogram was read with the assistance of [employer]over[employer] Signature,an FDA approved computer aided detection system for mammography. Negative x-ray reports should not delay surgical consultation if a dominant or clinically suspicious mass is present. Not all breast cancers can be identified by mammography. Therefore, we recommend that you continue to perform regular breast self-examination and physical examination and then promptly contact your physician of any concerns or changes. Adenosis and dense breasts may obscure an underlying neoplasm. No significant changes when compared with prior studies. Assessment: BI-RADS/ACR category 2 mammogram. Benign Findings. Recommendation Routine screening mammogram of both breasts in 1 year. Electronically Signed By: Emerson Moeller MD 04/03/21 [id number]
== END ==
LOC: M WHC 14:10
PROVIDERS: ATTEND Nurse Practitioner Adult Health
DX: Z12.31 Encounter for screening mammogram for malignant neoplasm of breast (principal); Z80.3 Family history of malignant neoplasm of breast

== ENCOUNTER → 2021-04-23 | Outpatient (REF) | payer MEDICARE ==
[2021-04-23 17:59] LABS: PERCENT SATURATION 19.7 % (13.2-45.0)
== END ==
LOC: M LAB REF 16:18
PROVIDERS: ATTEND Nurse Practitioner Adult Health
DX: D64.9 Anemia, unspecified (principal)

== ENCOUNTER → 2021-08-07 | Outpatient (REF) | payer MEDICARE | LOC: M LAB REF 16:54 | PROVIDERS: ATTEND Nurse Practitioner Family | DX: N18.32 Chronic kidney disease, stage 3b (principal) ==

== ENCOUNTER → 2021-08-18 | Outpatient (CLI) | payer MEDICARE ==
[~2021-08-18] MED LIST changes: +ALLO100T PO; +HYDR-3911 PO; +IRBE300T7 PO; +LABE20TAB PO; +MAGN400C PO; +VITA100093 PO
== END ==
LOC: M LABSMTC 09:41
PROVIDERS: ATTEND Anesthesiology
DX: Z01.812 Encounter for preprocedural laboratory examination (principal); Z20.822 Contact with and (suspected) exposure to COVID-19

== ENCOUNTER 2021-08-23 08:28 | Day surgery (SDC) | payer MEDICARE ==
[~2021-08-23] VITALS: Ht 154.9 cm; Wt 73.9 kg
[~2021-08-23 08:28] MED LIST changes: +LIDOCAINE 2% 100MG/5ML SDV (FOR ANES.) As Ordered ONE; +NS 1,000 ML IV ONE; +propofoL 200 MG/20 ML VIAL As Ordered ONE
[2021-08-23 10:32] VITALS: BP 171/77
== END 2021-08-23 10:34 | disposition home or self-care (01) ==
LOC: M OPP 08:28
PROVIDERS: ATTEND Surgery
DX: Z12.11 Encounter for screening for malignant neoplasm of colon (principal); Z80.0 Family history of malignant neoplasm of digestive organs; D12.6 Benign neoplasm of colon, unspecified; D17.5 Benign lipomatous neoplasm of intra-abdominal organs; K64.2 Third degree hemorrhoids; I10 Essential (primary) hypertension; E11.9 Type 2 diabetes mellitus without complications; K21.9 Gastro-esophageal reflux disease without esophagitis; M19.90 Unspecified osteoarthritis, unspecified site; F41.9 Anxiety disorder, unspecified; F32.9 Major depressive disorder, single episode, unspecified; F17.210 Nicotine dependence, cigarettes, uncomplicated; N28.9 Disorder of kidney and ureter, unspecified; Z88.1 Allergy status to other antibiotic agents; Z79.84 Long term (current) use of oral hypoglycemic drugs; Z79.899 Other long term (current) drug therapy

== ENCOUNTER 2021-10-26 17:54 | Inpatient (IN) | payer MEDICARE ==
[~2021-10-26] VITALS: Ht 157.5 cm; Wt 92.3 kg
[2021-10-26] MEDS: KCL 10MEQ/100ML SWI (KRUN) 10 MEQ in IV 1 EA IV SCH ×2 (11:00→23:11)
[~2021-10-26 17:54] MED LIST changes: -LIDOCAINE 2% 100MG/5ML SDV (FOR ANES.) As Ordered ONE; -NS 1,000 ML IV ONE; -propofoL 200 MG/20 ML VIAL As Ordered ONE
[2021-10-26] MEDS ORDERED: ADENOSINE 6MG/2ML INJECTION (J0153) As Ordered ONE (18:19)
[2021-10-26] MEDS ORDERED: NS 1,000 ML IV ONE ×2 (18:30→19:45)
[2021-10-26] MEDS ORDERED: ASPIRIN 81 MG CHEW TABLET PO ONE (18:30)
[2021-10-26 18:46] LABS: HEMATOCRIT 34.3 % (36.0-47.0); HEMOGLOBIN 11.8 g/dl (12.0-15.5); MEAN CORPUSCULAR HEMOGLOBIN 29.6 pg (27.0-33.0); MEAN CORPUSCULAR HGB CONC 34.4 g/dl (32.0-36.5); MEAN CORPUSCULAR VOLUME 86.2 fl (80.0-96.0); PLATELET COUNT, AUTOMATED 139 10^3/uL (150-450); RED BLOOD COUNT 3.98 10^6/uL (4.00-5.40); WHITE BLOOD COUNT 14.2 10^3/uL (4.0-10.0)
[2021-10-26] MEDS ORDERED: ETOMIDATE INJ 20MG/10ML VIAL As Ordered ONE (18:49)
[2021-10-26 19:02] LABS: PROTHROMBIN TIME 13.6 SECONDS (12.7-14.5)
[2021-10-26] MEDS ORDERED: METOPROLOL 5 MG/5 ML VIAL As Ordered ONE (19:09)
[2021-10-26] MEDS ORDERED: ETOMIDATE INJ 20MG/10ML VIAL IV ONE (19:10)
[2021-10-26] MEDS: METOPROLOL 5 MG/5 ML VIAL IV SCH ×3 (19:12→19:50)
[2021-10-26 19:19] LABS: ALBUMIN 3.1 GM/DL (3.2-5.2); BILIRUBIN,DIRECT 0.2 MG/DL (0.0-0.2); BILIRUBIN,TOTAL 0.8 MG/DL (0.2-1.0); CALCIUM LEVEL 7.4 MG/DL (8.8-10.2); CREATININE FOR GFR 2.41 MG/DL (0.55-1.30); GLOMERULAR FILTRATION RATE 21.1 (>39); POTASSIUM SERUM 3.3 MEQ/L (3.5-5.1); THYROID STIMULATING HORMONE 0.447 uIU/ML (0.358-3.740); THYROXINE (T4) 7.5 UG/DL (4.5-12.0); TOTAL PROTEIN 6.9 GM/DL (6.4-8.2)
[2021-10-26 19:29] LABS: RSV AMPLIFICATION NEGATIVE (NEGATIVE)
[2021-10-26] MEDS ORDERED: AMIODARONE 150MG/3ML INJ (J0282) As Ordered ONE (19:30)
[2021-10-26] MEDS ORDERED: AMIODARONE HCL 360 MG/200 ML PREMIXED BAG (NEXTERONE) (J0282 PER 30MG) As Ordered ONE ×2 (19:30→20:12)
[2021-10-26] MEDS ORDERED: fentaNYL 100 MCG/2 ML INJECTION As Ordered ONE (19:30)
[2021-10-26] MEDS ORDERED: AMIODARONE 150MG/3ML INJ (J0282) IVP STA ×2 (19:32→19:36)
[2021-10-26] MEDS ORDERED: fentaNYL 100 MCG/2 ML INJECTION IV ONE ×2 (19:35→20:25)
[2021-10-26] MEDS ORDERED: AMIODARONE HCL 150 MG/100 ML PREMIXED BAG (NEXTERONE) (J0282 PER 30MG) As Ordered ONE (19:44)
[2021-10-26] MEDS ORDERED: dexameTHASONE 20MG/5ML VIAL (J1100 PER 1MG) IV ONE (19:45)
[2021-10-26] MEDS ORDERED: LEVALBUTEROL 1.25 MG/0.5 ML CONCENTRATE NEB INH STA (19:45)
[2021-10-26] MEDS ORDERED: AMIODARONE HCL 150 MG in IV 1 EA IV SCH (19:45)
[2021-10-26 19:46] LABS: MAGNESIUM LEVEL 0.7 MG/DL (1.8-2.4); PHOSPHORUS LEVEL 4.4 MG/DL (2.5-4.9)
[2021-10-26] MEDS ORDERED: MAGNESIUM SULFATE IN WATER 2 GM in IV 1 EA IV STA ×2 (19:47)
[2021-10-26 19:51] LABS: LYMPHOCYTES 12 % (16-44); MONOCYTES 5 % (0-5); NEUTROPHILS 62 % (28-66)
[2021-10-26 19:53] LABS: PLATELET ESTIMATE NORMAL (NORMAL)
[2021-10-26] MEDS ORDERED: OSELTAMIVIR PHOSPHATE 75 MG CAP (TAMIFLU) PO ONE (20:00)
[2021-10-26] MEDS ORDERED: AMIODARONE HCL 360 MG in IV 1 EA IV SCH (20:30)
[2021-10-26] MEDS ORDERED: GLIP5TAB8 PO (20:49)
[2021-10-26] MEDS ORDERED: HEPARIN DRIP 25,000 UNITS in IV 1 EA IV SCH (20:50)
[2021-10-26] MEDS ORDERED: ISOS1TAB36 PO (20:53)
[2021-10-26] MEDS ORDERED: med rec comment (20:53)
[2021-10-26] MEDS ORDERED: CHLO125TA PO (20:53)
[2021-10-26] MEDS ORDERED: AMLO1TAB25 PO (20:53)
[2021-10-26] MEDS ORDERED: ATOR40TA75 PO (20:53)
[2021-10-26] MEDS ORDERED: HOME MED LIST COMPLETE! XX SCH (20:55)
[2021-10-26 20:59] LABS: APPEARANCE, URINE CLOUDY (CLEAR); BACTERIA, URINE AUTO NEGATIVE (NEGATIVE); BILIRUBIN, URINE AUTO NEGATIVE (NEGATIVE); BLOOD, URINE BLOOD 1+ (NEGATIVE); COLOR, URINE AMBER (YELLOW); GLUCOSE, URINE (UA) AUTO NEGATIVE (NEGATIVE); KETONE, URINE AUTO NEGATIVE (NEGATIVE); LEUKOCYTE ESTERASE, URINE AUTO TRACE (NEGATIVE); MUCUS, URINE SMALL (NEGATIVE); NITRITE, URINE AUTO NEGATIVE (NEGATIVE); PROTEIN, URINE AUTO 3+ mg/dL (NEGATIVE); RBC, URINE AUTO 5 /HPF (0-3); SPECIFIC GRAVITY URINE AUTO 1.022 (1.002-1.035); SQUAMOUS EPITHELIAL CELL UR AU 0 /HPF (0-6); UROBILINOGEN, URINE AUTO 0.2 mg/dL (0.0-2.0); WBC, URINE AUTO 28 /HPF (0-3)
[2021-10-26] MEDS ORDERED: ACETAMINOPHEN TAB 650MG DOSE (2X325MG) PO PRN (21:20)
[2021-10-26] MEDS ORDERED: GLUCAGON INJ 1MG VIAL SC PRN (21:45)
[2021-10-26] MEDS ORDERED: GLUCOSE 4GM CHEW TABLET PO PRN (21:45)
[2021-10-26] MEDS ORDERED: DEXTROSE 50% 50 ML SYRINGE IV PRN (21:45)
[2021-10-26] MEDS ORDERED: LEVALBUTEROL HFA 45MCG/ACT 15 GM INHALER INH PRN (21:55)
[2021-10-26] MEDS ORDERED: HYDROMORPHONE HCL 0.5 MG/ 0.5 ML SYRINGE (J1170 PER 1) IV PRN (22:55)
[2021-10-26] MEDS: NS 1,000 ML IV SCH (23:11)
[2021-10-27] VITALS (18 sets, daily range): BP systolic 115–175; BP diastolic 55–86
[2021-10-27] MEDS ORDERED: HEPARIN SOD (PORCINE) 5000UNITS/ML 1ML VIAL/SYRINGE IV PRN (01:45)
[2021-10-27] MEDS ORDERED: NICOTINE 14 MG/24 HR TRANSDERMAL TD PRN (02:20)
[2021-10-27] MEDS ORDERED: AMIODARONE HCL 360 MG in IV 1 EA IV SCH ×2 (02:30→03:55)
[2021-10-27] MEDS ORDERED: MAG SULF 1GM/100ML (MAG RUN) 1 GM in IV 1 EA IV ONE (03:00)
[2021-10-27] MEDS: LEVALBUTEROL HFA 45MCG/ACT 15 GM INHALER INH SCH ×4 (03:41→19:41)
[2021-10-27] MEDS: IPRATROPIUM HFA INHALER 12.9 GRAMS (ATROVENT HFA) INH SCH ×4 (03:41→19:41)
[2021-10-27] MEDS: KCL 10MEQ/100ML SWI (KRUN) 10 MEQ in IV 1 EA IV SCH ×2 (03:56→04:00)
[2021-10-27 04:13] LABS: HEMATOCRIT 31.2 % (36.0-47.0); HEMOGLOBIN 10.6 g/dl (12.0-15.5); MEAN CORPUSCULAR HEMOGLOBIN 29.9 pg (27.0-33.0); MEAN CORPUSCULAR VOLUME 88.1 fl (80.0-96.0); PLATELET COUNT, AUTOMATED 116 10^3/uL (150-450); RED BLOOD COUNT 3.54 10^6/uL (4.00-5.40); WHITE BLOOD COUNT 11.5 10^3/uL (4.0-10.0)
[2021-10-27] MEDS: NS 1,000 ML IV SCH ×2 (05:15→11:18)
[2021-10-27 08:15] LABS: CALCIUM LEVEL 7.2 MG/DL (8.8-10.2); CREATININE FOR GFR 2.57 MG/DL (0.55-1.30); GLOMERULAR FILTRATION RATE 19.6 (>39); MAGNESIUM LEVEL 1.8 MG/DL (1.8-2.4); POTASSIUM SERUM 3.8 MEQ/L (3.5-5.1)
[2021-10-27] MEDS: INSULIN LISPRO (NovoLOG) PER UNIT SC SCH ×4 (08:26→20:53)
[2021-10-27] MEDS ORDERED: METOPROLOL TART 25 MG TABLET PO SCH (09:00)
[2021-10-27] MEDS ORDERED: DIGOXIN INJ 0.5 MG/2 ML AMP (J1160) IV ONE ×2 (10:45→15:00)
[2021-10-27] MEDS: BENZONATATE 100MG CAPSULE PO SCH ×3 (11:12→20:49)
[2021-10-27] MEDS: guaiFENesin ER 600 MG TAB PO SCH ×2 (11:12→20:50)
[2021-10-27] MEDS: bisoproloL fumarate 5 MG TAB PO SCH (13:11)
[2021-10-27] MEDS: OSELTAMIVIR PHOSPHATE 30MG CAPSULE PO SCH (16:35)
[2021-10-27 16:51] LABS: HEMATOCRIT 30.3 % (36.0-47.0); HEMOGLOBIN 10.4 g/dl (12.0-15.5); MEAN CORPUSCULAR HEMOGLOBIN 29.8 pg (27.0-33.0); MEAN CORPUSCULAR HGB CONC 34.3 g/dl (32.0-36.5); MEAN CORPUSCULAR VOLUME 86.8 fl (80.0-96.0); PLATELET COUNT, AUTOMATED 149 10^3/uL (150-450); RED BLOOD COUNT 3.49 10^6/uL (4.00-5.40); WHITE BLOOD COUNT 11.5 10^3/uL (4.0-10.0)
[2021-10-27] MEDS ORDERED: LevoFLOXacin 750 MG TABLET PO ONE (20:00)
[2021-10-27] MEDS: HEPARIN DRIP 25,000 UNITS in IV 1 EA IV SCH (20:53)
[2021-10-27] MEDS ORDERED: BISOPROLOL FUM 2.5 MG PER 1/2TAB PO ONE (22:00)
[2021-10-28] VITALS (13 sets, daily range): BP systolic 134–186; BP diastolic 65–79
[2021-10-28] MEDS: IPRATROPIUM HFA INHALER 12.9 GRAMS (ATROVENT HFA) INH SCH ×4 (01:30→20:37)
[2021-10-28] MEDS: LEVALBUTEROL HFA 45MCG/ACT 15 GM INHALER INH SCH ×4 (01:30→20:37)
[2021-10-28 06:52] LABS: HEMATOCRIT 29.8 % (36.0-47.0); HEMOGLOBIN 10.1 g/dl (12.0-15.5); MEAN CORPUSCULAR HEMOGLOBIN 29.5 pg (27.0-33.0); MEAN CORPUSCULAR HGB CONC 33.9 g/dl (32.0-36.5); MEAN CORPUSCULAR VOLUME 87.1 fl (80.0-96.0); PLATELET COUNT, AUTOMATED 149 10^3/uL (150-450); RED BLOOD COUNT 3.42 10^6/uL (4.00-5.40); WHITE BLOOD COUNT 10.2 10^3/uL (4.0-10.0)
[2021-10-28 07:11] LABS: CALCIUM LEVEL 8.2 MG/DL (8.8-10.2); CREATININE FOR GFR 2.05 MG/DL (0.55-1.30); GLOMERULAR FILTRATION RATE 25.5 (>39); POTASSIUM SERUM 3.5 MEQ/L (3.5-5.1)
[2021-10-28 07:30] LABS: LYMPHOCYTES 11 % (16-44); MONOCYTES 3 % (0-5); NEUTROPHILS 82 % (28-66); PLATELET ESTIMATE DECREASED (NORMAL)
[2021-10-28 07:31] LABS: TEAR DROP CELLS 1+
[2021-10-28 08:43] LABS: MAGNESIUM LEVEL 1.7 MG/DL (1.8-2.4)
[2021-10-28] MEDS: bisoproloL fumarate 5 MG TAB PO SCH ×2 (09:00→14:47)
[2021-10-28] MEDS: guaiFENesin ER 600 MG TAB PO SCH ×2 (09:49→20:53)
[2021-10-28] MEDS: INSULIN LISPRO (NovoLOG) PER UNIT SC SCH ×4 (09:49→20:53)
[2021-10-28] MEDS: BENZONATATE 100MG CAPSULE PO SCH ×3 (09:50→20:53)
[2021-10-28] MEDS: OSELTAMIVIR PHOSPHATE 30MG CAPSULE PO SCH (09:50)
[2021-10-28] MEDS ORDERED: MAG SULF 1GM/100ML (MAG RUN) 1 GM in IV 1 EA IV ONE (12:00)
[2021-10-28] MEDS: HEPARIN DRIP 25,000 UNITS in IV 1 EA IV SCH (13:28)
[2021-10-28] MEDS ORDERED: amLODIPine 5 MG TAB PO ONE (16:15)
[2021-10-28] MEDS: **hydrALAZINE HCL** 25 MG TAB PO PRN (21:27)
[2021-10-28] MEDS ORDERED: LABETALOL 100MG/20ML VIAL IV ONE (22:40)
[2021-10-28] MEDS ORDERED: **hydrALAZINE HCL** 25 MG TAB PO ONE (22:45)
[2021-10-29] VITALS (9 sets, daily range): BP systolic 145–196; BP diastolic 60–80
[2021-10-29] MEDS ORDERED: LABETALOL 100MG/20ML VIAL IV STA (00:31)
[2021-10-29] MEDS: IPRATROPIUM HFA INHALER 12.9 GRAMS (ATROVENT HFA) INH SCH (02:11)
[2021-10-29] MEDS: LEVALBUTEROL HFA 45MCG/ACT 15 GM INHALER INH SCH (02:11)
[2021-10-29] MEDS ORDERED: FUROSEMIDE 40MG/4ML VIAL (J1940) IV ONE (02:30)
[2021-10-29] MEDS: HEPARIN DRIP 25,000 UNITS in IV 1 EA IV SCH ×2 (05:42→21:21)
[2021-10-29] MEDS ORDERED: LevoFLOXacin 500 MG TABLET PO ONE (06:00)
[2021-10-29] MEDS ORDERED: LevoFLOXacin 500 MG TABLET PO SCH (06:00)
[2021-10-29 06:38] LABS: HEMATOCRIT 30.8 % (36.0-47.0); HEMOGLOBIN 10.5 g/dl (12.0-15.5); MEAN CORPUSCULAR HEMOGLOBIN 29.6 pg (27.0-33.0); MEAN CORPUSCULAR HGB CONC 34.1 g/dl (32.0-36.5); MEAN CORPUSCULAR VOLUME 86.8 fl (80.0-96.0); PLATELET COUNT, AUTOMATED 189 10^3/uL (150-450); RED BLOOD COUNT 3.55 10^6/uL (4.00-5.40); WHITE BLOOD COUNT 10.5 10^3/uL (4.0-10.0)
[2021-10-29 06:57] LABS: CALCIUM LEVEL 8.4 MG/DL (8.8-10.2); CREATININE FOR GFR 1.75 MG/DL (0.55-1.30); GLOMERULAR FILTRATION RATE 30.6 (>39)
[2021-10-29 07:04] LABS: LYMPHOCYTES 4 % (16-44); METAMYELOCYTES 2 % (0-0); MONOCYTES 6 % (0-5); NEUTROPHILS 88 % (28-66); PLATELET ESTIMATE NORMAL (NORMAL)
[2021-10-29 07:26] LABS: MAGNESIUM LEVEL 1.4 MG/DL (1.8-2.4)
[2021-10-29] MEDS ORDERED: POTASSIUM CHLORIDE 10MEQ SR TABLET PO ONE (07:30)
[2021-10-29] MEDS: IPRATROPIUM 0.02% SOLN 0.5MG 2.5ML NEB INH SCH ×3 (07:33→21:27)
[2021-10-29] MEDS: LEVALBUTEROL 1.25 MG/0.5 ML CONCENTRATE NEB INH SCH ×3 (07:33→21:26)
[2021-10-29] MEDS: INSULIN LISPRO (NovoLOG) PER UNIT SC SCH ×4 (08:08→20:49)
[2021-10-29] MEDS: guaiFENesin ER 600 MG TAB PO SCH ×2 (08:10→20:50)
[2021-10-29] MEDS: BENZONATATE 100MG CAPSULE PO SCH ×3 (08:10→20:50)
[2021-10-29] MEDS: ISOSORBIDE MON. (IMDUR) 60 MG XR TAB PO SCH (08:10)
[2021-10-29] MEDS: OSELTAMIVIR PHOSPHATE 30MG CAPSULE PO SCH (08:10)
[2021-10-29] MEDS: bisoproloL fumarate 5 MG TAB PO SCH (08:12)
[2021-10-29] MEDS: MAG SULF 1GM/100ML (MAG RUN) 1 GM in IV 1 EA IV SCH ×3 (15:07→17:41)
[2021-10-29] MEDS: **hydrALAZINE HCL** 25 MG TAB PO PRN (20:50)
[2021-10-30] VITALS: BP 162/72
[2021-10-30] MEDS: IPRATROPIUM 0.02% SOLN 0.5MG 2.5ML NEB INH SCH ×3 (02:03→13:38)
[2021-10-30] MEDS: LEVALBUTEROL 1.25 MG/0.5 ML CONCENTRATE NEB INH SCH ×3 (02:03→13:38)
[2021-10-30 03:50] LABS: HEMATOCRIT 30.5 % (36.0-47.0); HEMOGLOBIN 10.5 g/dl (12.0-15.5); MEAN CORPUSCULAR HEMOGLOBIN 29.7 pg (27.0-33.0); MEAN CORPUSCULAR HGB CONC 34.4 g/dl (32.0-36.5); MEAN CORPUSCULAR VOLUME 86.2 fl (80.0-96.0); PLATELET COUNT, AUTOMATED 201 10^3/uL (150-450); RED BLOOD COUNT 3.54 10^6/uL (4.00-5.40); WHITE BLOOD COUNT 15.9 10^3/uL (4.0-10.0)
[2021-10-30 04:00] VITALS: BP 176/75
[2021-10-30 04:13] LABS: CALCIUM LEVEL 8.6 MG/DL (8.8-10.2); CREATININE FOR GFR 1.74 MG/DL (0.55-1.30); GLOMERULAR FILTRATION RATE 30.8 (>39)
[2021-10-30 04:46] LABS: ATYPICAL LYMPH 1 % (0-5); LYMPHOCYTES 11 % (16-44); METAMYELOCYTES 2 % (0-0); MONOCYTES 6 % (0-5); MYELOCYTES 1 % (0-0); NEUTROPHILS 79 % (28-66)
[2021-10-30 04:47] LABS: ANISOCYTOSIS 1+; PLATELET ESTIMATE NORMAL (NORMAL)
[2021-10-30] MEDS ORDERED: POTASSIUM CHLORIDE 10MEQ SR TABLET PO ONE (07:30)
[2021-10-30] MEDS ORDERED: MAG SULF 1GM/100ML (MAG RUN) 1 GM in IV 1 EA IV ONE (07:40)
[2021-10-30] MEDS ORDERED: BISO5TAB14 PO (07:41)
[2021-10-30] MEDS ORDERED: MUCI600T31 PO (07:41)
[2021-10-30] MEDS ORDERED: OSEL30CA PO (07:41)
[2021-10-30] MEDS ORDERED: NICO14PA TD (07:41)
[2021-10-30] MEDS ORDERED: ELIQ5TAB PO (07:41)
[2021-10-30] MEDS ORDERED: PROV108A INH (07:42)
[2021-10-30] MEDS ORDERED: PRED10TA2 PO (07:42)
[2021-10-30] MEDS ORDERED: DOXY-350 PO (07:43)
[2021-10-30 08:00] VITALS: BP 144/82
[2021-10-30 08:12] LABS: MAGNESIUM LEVEL 2.3 MG/DL (1.8-2.4)
[2021-10-30] MEDS ORDERED: DOXYCYCLINE HYCLATE 100MG TABLET PO SCH (09:00)
[2021-10-30] MEDS ORDERED: APIXABAN 5 MG TAB (ELIQUIS) PO SCH (09:00)
[2021-10-30] MEDS ORDERED: predniSONE 20 MG TAB PO SCH (09:00)
[2021-10-30] MEDS: INSULIN LISPRO (NovoLOG) PER UNIT SC SCH ×2 (09:07→12:08)
[2021-10-30] MEDS: OSELTAMIVIR PHOSPHATE 30MG CAPSULE PO SCH (09:11)
[2021-10-30] MEDS: guaiFENesin ER 600 MG TAB PO SCH (09:11)
[2021-10-30] MEDS: BENZONATATE 100MG CAPSULE PO SCH ×2 (09:11→15:06)
[2021-10-30 09:12] VITALS: BP 144/82
[2021-10-30] MEDS: bisoproloL fumarate 5 MG TAB PO SCH (09:12)
[2021-10-30] MEDS: ISOSORBIDE MON. (IMDUR) 60 MG XR TAB PO SCH (09:13)
[2021-10-30 12:00] VITALS: BP 158/84
== END 2021-10-30 16:40 | disposition home or self-care (01) | DRG 152 ==
LOC: M ED 17:54 → M ED INP 21:51 → ENRESERV 22:54 → M ICU 10-27 00:45 → M MSPAV 10-28 16:31 → M PCU 10-29 01:00
PROVIDERS: ADMIT Internal Medicine; ATTEND Internal Medicine
PROC: 5A2204Z Restoration of Cardiac Rhythm, Single (ICD-10-PCS; principal; 2021-10-26)
PROC: B246ZZZ Ultrasonography of Right and Left Heart (ICD-10-PCS; 2021-10-28)
DX: J11.1 Influenza due to unidentified influenza virus with other respiratory manifestations (principal); J96.01 Acute respiratory failure with hypoxia; J44.1 Chronic obstructive pulmonary disease with (acute) exacerbation; I13.0 Hypertensive heart and chronic kidney disease with heart failure and stage 1 through stage 4 chronic kidney disease, or unspecified chronic kidney disease; N17.9 Acute kidney failure, unspecified; A04.5 Campylobacter enteritis; N18.4 Chronic kidney disease, stage 4 (severe); I48.0 Paroxysmal atrial fibrillation; E78.5 Hyperlipidemia, unspecified; K21.9 Gastro-esophageal reflux disease without esophagitis; E11.22 Type 2 diabetes mellitus with diabetic chronic kidney disease; E11.21 Type 2 diabetes mellitus with diabetic nephropathy; Z20.822 Contact with and (suspected) exposure to COVID-19; F32.A Depression, unspecified; F41.9 Anxiety disorder, unspecified; Z90.49 Acquired absence of other specified parts of digestive tract; F17.210 Nicotine dependence, cigarettes, uncomplicated; R19.7 Diarrhea, unspecified; E83.42 Hypomagnesemia; E87.6 Hypokalemia; Z79.84 Long term (current) use of oral hypoglycemic drugs; Z79.899 Other long term (current) drug therapy; Z88.1 Allergy status to other antibiotic agents; I50.9 Heart failure, unspecified; E66.9 Obesity, unspecified; I45.10 Unspecified right bundle-branch block

== ENCOUNTER → 2021-12-06 | Outpatient (CLI) | payer MEDICARE ==
[~2021-12-06] MED LIST changes: +AMLO1TAB25 PO; +ATOR40TA75 PO; +BISO5TAB14 PO; +CHLO125TA PO; +DOXY-350 PO; +ELIQ5TAB PO; +ISOS1TAB36 PO; +MUCI600T31 PO; +NICO14PA TD; +OSEL30CA PO; +PRED10TA2 PO; +PROV108A INH; +med rec comment
== END ==
LOC: M RAD 15:54
PROVIDERS: ATTEND Physician Assistant
DX: M79.662 Pain in left lower leg (principal); M79.89 Other specified soft tissue disorders

== ENCOUNTER → 2022-06-17 | Outpatient (REF) | payer MEDICARE ==
[~2022-06-17] MED LIST changes: +ALBU6.7H6 INH; -DOXY-350 PO; +DOXY-444 PO; -PROV108A INH
[2022-06-17 18:13] LABS: CREATININE, URINE 110.2 MG/DL
[2022-06-17 18:28] LABS: MAU/CREAT RATIO 3175.1 MCG/MG (0.0-30.0)
[2022-06-19 05:07] LABS: LDL DIRECT 57 mg/dL (0-99)
== END ==
LOC: M LAB REF 16:26
PROVIDERS: ATTEND Nurse Practitioner Adult Health
DX: I10 Essential (primary) hypertension (principal); E78.5 Hyperlipidemia, unspecified

== ENCOUNTER → 2022-07-11 | Outpatient (REF) | payer MEDICARE | LOC: M LAB REF 12:08 | PROVIDERS: ATTEND Nurse Practitioner Adult Health | DX: E83.51 Hypocalcemia (principal) ==

== ENCOUNTER → 2023-01-22 | Outpatient (CLI) | payer MEDICARE | LOC: M WHC 10:08 | PROVIDERS: ATTEND Nurse Practitioner Adult Health | DX: Z12.31 Encounter for screening mammogram for malignant neoplasm of breast (principal) ==

== ENCOUNTER → 2023-07-17 | Outpatient (REF) | payer MEDICARE ==
[~2023-07-17] MED LIST changes: +GLIP5TAB17 PO; -GLIP5TAB8 PO; -HYDR-3911 PO; +HYDR50TA46 PO; +IRBE300T25 PO; -IRBE300T7 PO; +MECL-209 PO; -MECL1TAB31 PO
[2023-07-18 04:08] LABS: LDL DIRECT 58 mg/dL (0-99)
== END ==
LOC: M LAB REF 12:19
PROVIDERS: ATTEND Nurse Practitioner Adult Health
DX: E78.5 Hyperlipidemia, unspecified (principal)

== ENCOUNTER → 2023-08-20 | Outpatient (REF) | payer MEDICARE ==
[~2023-08-20] MED LIST changes: -HYDR-3910 PO; +HYDR25TA87 PO
[2023-08-20 18:48] LABS: PERCENT SATURATION 13.2 % (13.2-45.0)
[2023-08-20 18:51] LABS: FERRITIN 17.7 NG/ML (7.3-270.7)
== END ==
LOC: M LAB REF 17:47
PROVIDERS: ATTEND Internal Medicine Nephrology
DX: N18.9 Chronic kidney disease, unspecified (principal); D63.1 Anemia in chronic kidney disease

== ENCOUNTER 2023-09-30 08:34 | Outpatient (CLI) | payer MEDICARE ==
[~2023-09-30] VITALS: Ht 154.9 cm; Wt 74.0 kg
[~2023-09-30 08:34] MED LIST changes: +ALBUTEROL SULFATE 2.5MG/0.5ML INH NEB SOLN INH PRN; +EPINEPHrine INJ 1 MG/ML 1ML AMP IM PRN; +METO200T15 PO; -METO200T28 PO; +NS 1,000 ML IV SCH; +diphenhydrAMINE 50MG/ML VIAL IV PRN; +methylPREDNISolone 125MG 2ML VIAL IV PRN
[2023-09-30 09:00] VITALS: BP 160/78; O2SAT 97
[2023-09-30] MEDS: IRON SUCROSE 300 MG in NS 250 ML OVER 90 MIN. IV ONE (09:15)
[2023-09-30 10:50] VITALS: BP 140/70; O2SAT 98
== END 2023-09-30 11:00 ==
LOC: M INFU 08:34
PROVIDERS: ATTEND Internal Medicine Nephrology
DX: E61.1 Iron deficiency (principal); Z88.1 Allergy status to other antibiotic agents
CPT/HCPCS: 96365; 96366; J1756

== ENCOUNTER 2023-10-14 10:30 | Outpatient (CLI) | payer MEDICARE ==
[~2023-10-14] VITALS: Ht 154.9 cm; Wt 73.2 kg
[~2023-10-14 10:30] MED LIST changes: +DOXY-440 PO; -DOXY-444 PO
[2023-10-14] MEDS: IRON SUCROSE 300 MG in NS 250 ML OVER 90 MIN. IV ONE (10:35)
[2023-10-14 10:42] VITALS: BP 162/80; O2SAT 96
== END 2023-10-14 12:20 | disposition home or self-care (01) ==
LOC: M INFU 10:30
PROVIDERS: ATTEND Internal Medicine Nephrology
DX: E61.1 Iron deficiency (principal); Z88.1 Allergy status to other antibiotic agents
CPT/HCPCS: 96365; J1756

== ENCOUNTER 2023-10-28 11:30 | Outpatient (CLI) | payer MEDICARE ==
[~2023-10-28] VITALS: Ht 154.9 cm; Wt 73.0 kg
[2023-10-28] MEDS: IRON SUCROSE 300 MG in NS 250 ML OVER 90 MIN. IV ONE (11:32)
[2023-10-28 11:46] VITALS: BP 132/72; O2SAT 97
[2023-10-28 13:15] VITALS: BP 136/78; O2SAT 95
== END 2023-10-28 13:15 | disposition home or self-care (01) ==
LOC: M INFU 11:30
PROVIDERS: ATTEND Internal Medicine Nephrology
DX: E61.1 Iron deficiency (principal); Z88.1 Allergy status to other antibiotic agents
CPT/HCPCS: 96365; J1756

== ENCOUNTER 2024-01-08 17:33 | Inpatient (IN) | payer MEDICARE ==
[~2024-01-08] VITALS: Ht 154.9 cm; Wt 68.0 kg
[~2024-01-08 17:33] MED LIST changes: -ALBUTEROL SULFATE 2.5MG/0.5ML INH NEB SOLN INH PRN; -EPINEPHrine INJ 1 MG/ML 1ML AMP IM PRN; -NS 1,000 ML IV SCH; -diphenhydrAMINE 50MG/ML VIAL IV PRN; -methylPREDNISolone 125MG 2ML VIAL IV PRN
[2024-01-08] MEDS: FAMOTIDINE 20MG/2ML VIAL IVP ONE (21:52)
[2024-01-08] MEDS: ONDANSETRON 4MG 2ML VIAL IV ONE (21:52)
[2024-01-08 21:58] LABS: BASO % 0.2 % (0.0-1.0); EOS # 0.1 10^3/uL (0.0-0.5); EOS % 0.7 % (0.0-3.0); HEMATOCRIT 31.1 % (36.0-47.0); HEMOGLOBIN 10.7 g/dl (12.0-15.5); LYMPH # 1.5 10^3/uL (1.5-5.0); LYMPH % 11.4 % (24.0-44.0); MEAN CORPUSCULAR HEMOGLOBIN 29.6 pg (27.0-33.0); MEAN CORPUSCULAR HGB CONC 34.4 g/dl (32.0-36.5); MEAN CORPUSCULAR VOLUME 86.1 fl (80.0-96.0); MONO % 7.2 % (2.0-8.0); NEUTROPHILS # 10.5 10^3/uL (1.5-8.5); NEUTROPHILS % 79.7 % (36.0-66.0); PLATELET COUNT, AUTOMATED 225 10^3/uL (150-450); RED BLOOD COUNT 3.61 10^6/uL (4.00-5.40); WHITE BLOOD COUNT 13.2 10^3/uL (4.0-10.0)
[2024-01-08 22:29] LABS: LIPASE 130 U/L (12-53)
[2024-01-08 22:31] LABS: ALBUMIN 3.5 G/DL (3.2-5.2); ALKALINE PHOSPHATASE 122 U/L (46-116); ALT/SGPT 15 U/L (7.0-40); AST/SGOT 22 U/L (<34); BILIRUBIN,DIRECT < 0.1 MG/DL (<0.4); BILIRUBIN,TOTAL 0.3 MG/DL (0.3-1.2); TOTAL PROTEIN 6.5 G/DL (5.7-8.2)
[2024-01-09] MEDS: LIDOCAINE 2% 5ML JELLY UROJET TOP ONE (01:35)
[2024-01-09] MEDS ORDERED: FLON1SPR NARES (02:01)
[2024-01-09] MEDS ORDERED: ACET650T15 PO (02:01)
[2024-01-09] MEDS ORDERED: BISO5TAB14 PO (02:01)
[2024-01-09] MEDS ORDERED: ELIQ5TAB PO (02:01)
[2024-01-09] MEDS ORDERED: ALBU8.5H INH (02:01)
[2024-01-09] MEDS ORDERED: ALLO300T2 PO (02:01)
[2024-01-09] MEDS ORDERED: MAGN400T2 PO (02:01)
[2024-01-09] MEDS ORDERED: CHLO25TA PO (02:01)
[2024-01-09] MEDS ORDERED: HOME MED LIST COMPLETE! XX SCH (02:05)
[2024-01-09] MEDS ORDERED: DEXTROSE 50% 50ML SYRINGE IV PRN (02:25)
[2024-01-09] MEDS ORDERED: MOM 30ML SUSPENSION UDC PO PRN (02:25)
[2024-01-09] MEDS ORDERED: GLUCOSE 4 GM CHEW PO PRN (02:25)
[2024-01-09] MEDS ORDERED: GLUCAGON INJ 1MG VIAL SC PRN (02:25)
[2024-01-09] MEDS: LR 1,000 ML IV SCH (03:30)
[2024-01-09] MEDS: LR 1,000 ML IV ONE (03:37)
[2024-01-09] MEDS: KCL 10MEQ/100ML SWI (KRUN) 10 MEQ in IV 1 EA IV ONE (03:38)
[2024-01-09 04:04] LABS: IONIZED CALCIUM 2.6 MG/DL (4.5-5.3)
[2024-01-09 04:36] LABS: INR 1.48; PARTIAL THROMBOPLASTIN TIME 34.2 SECONDS (24.8-34.2); PROTHROMBIN TIME 17.4 SECONDS (12.5-14.5)
[2024-01-09 04:43] LABS: PROCALCITONIN 0.28 ng/ml
[2024-01-09 04:49] LABS: CALCIUM LEVEL 3.7 MG/DL (8.3-10.6); CREATININE FOR GFR 4.12 MG/DL (0.55-1.30); GLOMERULAR FILTRATION RATE 11.3 (>39); MAGNESIUM LEVEL 0.5 MG/DL (1.8-2.4); PHOSPHORUS LEVEL 12.2 MG/DL (2.4-5.1); POTASSIUM SERUM 2.9 MMOL/L (3.5-5.1)
[2024-01-09] MEDS: CALCIUM GLUCONATE 1,000 MG in D5W MINI-BAG PLUS 100 ML IV ONE ×2 (04:52→05:48)
[2024-01-09] MEDS: CALCIUM CARBONATE 500 MG CHEW U/D PO SCH (04:53)
[2024-01-09] MEDS: DOXYCYCLINE HYCLATE 100 MG in D5W MINI-BAG PLUS 100 ML IV SCH (05:10)
[2024-01-09] MEDS: MAGNESIUM OXIDE 400MG TAB (MAG-OX) PO ONE (05:12)
[2024-01-09] MEDS: POTASSIUM CHLORIDE 10MEQ SR TABLET PO ONE (05:13)
[2024-01-09] MEDS: MAG SULF 1GM/100ML (MAG RUN) 1 GM in IV 1 EA IV SCH (05:45)
[2024-01-09] MEDS ORDERED: INSULIN LISPRO (NovoLOG) PER UNIT SC SCH ×2 (07:30→21:00)
[2024-01-09] MEDS ORDERED: PIPERACILLIN/TAZOBACTAM SOD 3.375 GM in D5W MINI-BAG PLUS 50 ML IV SCH (07:40)
[2024-01-09] MEDS ORDERED: ALBUTEROL 90 MCG/ACT 8GM HFA INHALER INH PRN (07:45)
[2024-01-09] MEDS ORDERED: LACTOBACILLUS ACIDOPHILUS CAP (BACID) PO SCH (08:00)
[2024-01-09] MEDS: KCL 10MEQ/100ML SWI (KRUN) 10 MEQ in IV 1 EA IV SCH (08:19)
[2024-01-09] MEDS: CETIRIZINE (ZyrTEC) 10 MG TAB PO SCH (08:19)
[2024-01-09] MEDS: ATORVASTATIN 20 MG TAB PO SCH (08:20)
[2024-01-09] MEDS: LACTOBACILLUS ACIDOPHILUS CAP (BACID) PO SCH (08:20)
[2024-01-09] MEDS: APIXABAN 5 MG TAB (ELIQUIS) PO SCH (09:00)
[2024-01-09] MEDS: ISOSORBIDE MON. (IMDUR) 60MG XR TAB PO SCH (09:00)
[2024-01-09 09:33] LABS: IONIZED CALCIUM 2.9 MG/DL (4.5-5.3)
[2024-01-09 09:35] LABS: BASO % 0.2 % (0.0-1.0); EOS # 0.1 10^3/uL (0.0-0.5); EOS % 0.6 % (0.0-3.0); HEMATOCRIT 29.1 % (36.0-47.0); LYMPH # 0.7 10^3/uL (1.5-5.0); LYMPH % 6.4 % (24.0-44.0); MEAN CORPUSCULAR HEMOGLOBIN 29.8 pg (27.0-33.0); MEAN CORPUSCULAR HGB CONC 34.4 g/dl (32.0-36.5); MEAN CORPUSCULAR VOLUME 86.6 fl (80.0-96.0); MONO # 0.7 10^3/uL (0.0-0.8); MONO % 5.7 % (2.0-8.0); NEUTROPHILS # 9.9 10^3/uL (1.5-8.5); NEUTROPHILS % 86.1 % (36.0-66.0); PLATELET COUNT, AUTOMATED 188 10^3/uL (150-450); RED BLOOD COUNT 3.36 10^6/uL (4.00-5.40); WHITE BLOOD COUNT 11.5 10^3/uL (4.0-10.0)
[2024-01-09 10:06] LABS: CALCIUM LEVEL 4.6 MG/DL (8.3-10.6); CREATININE FOR GFR 4.04 MG/DL (0.55-1.30); GLOMERULAR FILTRATION RATE 11.6 (>39); MAGNESIUM LEVEL 1.2 MG/DL (1.8-2.4); PHOSPHORUS LEVEL 10.5 MG/DL (2.4-5.1); POTASSIUM SERUM 3.4 MMOL/L (3.5-5.1)
[2024-01-09] MEDS: MAG SULF 1GM/100ML (MAG RUN) 1 GM in IV 1 EA IV STA (11:35)
[2024-01-09] MEDS: bisoproloL fumarate 5 MG TAB PO SCH (11:37)
[2024-01-09] MEDS: OMEPRAZOLE 20MG CAP PO SCH (11:38)
[2024-01-09] MEDS: (RENVELA) SEVELAMER **CARBONate** 800 MG TAB PO SCH (11:39)
[2024-01-09 11:45] LABS: CALCIUM LEVEL 4.7 MG/DL (8.3-10.6); CREATININE FOR GFR 4.04 MG/DL (0.55-1.30); GLOMERULAR FILTRATION RATE 11.6 (>39); PHOSPHORUS LEVEL 10.4 MG/DL (2.4-5.1); POTASSIUM SERUM 3.3 MMOL/L (3.5-5.1)
[2024-01-09] MEDS ORDERED: CALCIUM GLUCONATE 1,000 MG in D5W MINI-BAG PLUS 100 ML IV SCH ×2 (12:00→19:45)
[2024-01-09 12:24] LABS: HEMOGLOBIN A1c 6.1 % (4.0-6.0)
[2024-01-09] MEDS: PIPERACILLIN/TAZOBACTAM SOD 4.5 GM in D5W MINI-BAG PLUS 50 ML IV SCH (13:06)
[2024-01-09 14:42] VITALS: BP 108/57; TEMP 98.2; O2SAT 98
[2024-01-09] MEDS: POTASSIUM CHLORIDE IV SCH (15:06)
[2024-01-09] MEDS: SODIUM BICARBONATE IV SCH (15:06)
[2024-01-09] MEDS: [UNRECOGNIZED DRUG - OTHER] IV SCH (15:06)
[2024-01-09] MEDS: FLUTICASONE PROP 0.05% NASAL SPRAY 16 GM (FLONASE) NARES SCH (15:48)
[2024-01-09 16:21] VITALS: BP 123/58; TEMP 97.7; O2SAT 96
[2024-01-09] MEDS: CALCIUM GLUCONATE 1,000 MG in D5W MINI-BAG PLUS 100 ML IV SCH ×2 (17:31→22:46)
[2024-01-09 19:06] LABS: CALCIUM LEVEL 4.8 MG/DL (8.3-10.6); CREATININE FOR GFR 3.94 MG/DL (0.55-1.30); GLOMERULAR FILTRATION RATE 11.9 (>39); PHOSPHORUS LEVEL 9.3 MG/DL (2.4-5.1); POTASSIUM SERUM 3.2 MMOL/L (3.5-5.1)
[2024-01-09 19:30] VITALS: BP 137/63; TEMP 97.5; O2SAT 96
[2024-01-09] MEDS: SERTRALINE HCL 50 MG TAB PO SCH (21:32)
[2024-01-09 23:04] VITALS: BP 141/60; TEMP 97.2; O2SAT 97
[2024-01-09] MEDS: MAALOX 30 ML SUSP *UDC PO PRN (23:07)
[2024-01-10 01:16] LABS: ALBUMIN 3.2 G/DL (3.2-5.2); CALCIUM LEVEL 5.4 MG/DL (8.3-10.6); CREATININE FOR GFR 3.52 MG/DL (0.55-1.30); GLOMERULAR FILTRATION RATE 13.6 (>39); PHOSPHORUS LEVEL 7.3 MG/DL (2.4-5.1)
[2024-01-10 03:16] VITALS: BP 144/65; TEMP 97.5; O2SAT 98
[2024-01-10 07:48] LABS: BASO % 0.2 % (0.0-1.0); EOS # 0.1 10^3/uL (0.0-0.5); EOS % 0.9 % (0.0-3.0); HEMATOCRIT 28.9 % (36.0-47.0); HEMOGLOBIN 10.2 g/dl (12.0-15.5); LYMPH # 0.8 10^3/uL (1.5-5.0); LYMPH % 8.2 % (24.0-44.0); MEAN CORPUSCULAR HEMOGLOBIN 29.7 pg (27.0-33.0); MEAN CORPUSCULAR HGB CONC 35.3 g/dl (32.0-36.5); MONO # 0.7 10^3/uL (0.0-0.8); MONO % 7.3 % (2.0-8.0); NEUTROPHILS # 7.7 10^3/uL (1.5-8.5); NEUTROPHILS % 82.5 % (36.0-66.0); PLATELET COUNT, AUTOMATED 188 10^3/uL (150-450); RED BLOOD COUNT 3.44 10^6/uL (4.00-5.40); WHITE BLOOD COUNT 9.3 10^3/uL (4.0-10.0)
[2024-01-10 07:54] VITALS: BP 138/64; TEMP 96.8; O2SAT 98
[2024-01-10 08:17] LABS: ALBUMIN 2.9 G/DL (3.2-5.2); CALCIUM LEVEL 5.7 MG/DL (8.3-10.6); CREATININE FOR GFR 3.07 MG/DL (0.55-1.30); GLOMERULAR FILTRATION RATE 15.9 (>39); MAGNESIUM LEVEL 1.2 MG/DL (1.8-2.4); PHOSPHORUS LEVEL 6.7 MG/DL (2.4-5.1); POTASSIUM SERUM 2.8 MMOL/L (3.5-5.1)
[2024-01-10] MEDS: MAG SULF 1GM/100ML (MAG RUN) 1 GM in IV 1 EA IV SCH ×2 (08:58→20:28)
[2024-01-10] MEDS: POTASSIUM CHLORIDE 10MEQ SR TABLET PO STA ×2 (09:00→18:27)
[2024-01-10] MEDS: CIPROFLOXACIN 500MG TABLET PO SCH (09:02)
[2024-01-10] MEDS: ACETAMINOPHEN TAB 650MG DOSE (2X325MG) PO PRN (09:06)
[2024-01-10] MEDS: KCL 20MEQ IN D5/0.45NS 1000ML 1,000 ML IV SCH (11:00)
[2024-01-10] MEDS: CALCITRIOL 0.25 MCG CAP (S0169) PO SCH (11:01)
[2024-01-10 12:00] VITALS: BP 144/61; TEMP 96.7; O2SAT 97
[2024-01-10] MEDS ORDERED: SODIUM BICARBONATE 75 MEQ in KCL 20MEQ IN 0.45NS 1000ML 1,000 ML IV SCH (13:00)
[2024-01-10] MEDS: CALCIUM ACETATE 667MG GELCAP PO SCH (13:02)
[2024-01-10 14:35] LABS: ALBUMIN 3.3 G/DL (3.2-5.2); CALCIUM LEVEL 6.5 MG/DL (8.3-10.6); CREATININE FOR GFR 2.66 MG/DL (0.55-1.30); GLOMERULAR FILTRATION RATE 18.8 (>39); PHOSPHORUS LEVEL 5.3 MG/DL (2.4-5.1); POTASSIUM SERUM 2.9 MMOL/L (3.5-5.1)
[2024-01-10 16:00] VITALS: BP 124/56; TEMP 96.9; O2SAT 95
[2024-01-10] MEDS: CALCIUM GLUCONATE 1,000 MG in D5W MINI-BAG PLUS 100 ML IV STA (18:26)
[2024-01-10 19:00] VITALS: BP 155/67; TEMP 96.8; O2SAT 95
[2024-01-10 23:20] LABS: ALBUMIN 2.9 G/DL (3.2-5.2); CALCIUM LEVEL 7.2 MG/DL (8.3-10.6); CREATININE FOR GFR 2.3 MG/DL (0.55-1.30); GLOMERULAR FILTRATION RATE 22.2 (>39); MAGNESIUM LEVEL 2.5 MG/DL (1.8-2.4); PHOSPHORUS LEVEL 4.2 MG/DL (2.4-5.1); POTASSIUM SERUM 3.5 MMOL/L (3.5-5.1)
[2024-01-10 23:25] VITALS: BP 140/60; TEMP 97.2; O2SAT 94
[2024-01-11 03:17] VITALS: BP 155/72; TEMP 96.8
[2024-01-11 07:26] LABS: BASO % 0.2 % (0.0-1.0); EOS # 0.1 10^3/uL (0.0-0.5); HEMATOCRIT 31.3 % (36.0-47.0); HEMOGLOBIN 10.5 g/dl (12.0-15.5); LYMPH # 0.7 10^3/uL (1.5-5.0); LYMPH % 7.7 % (24.0-44.0); MEAN CORPUSCULAR HEMOGLOBIN 29.1 pg (27.0-33.0); MEAN CORPUSCULAR HGB CONC 33.5 g/dl (32.0-36.5); MEAN CORPUSCULAR VOLUME 86.7 fl (80.0-96.0); MONO # 0.7 10^3/uL (0.0-0.8); MONO % 7.5 % (2.0-8.0); NEUTROPHILS # 7.3 10^3/uL (1.5-8.5); NEUTROPHILS % 82.9 % (36.0-66.0); PLATELET COUNT, AUTOMATED 186 10^3/uL (150-450); RED BLOOD COUNT 3.61 10^6/uL (4.00-5.40); WHITE BLOOD COUNT 8.8 10^3/uL (4.0-10.0)
[2024-01-11 07:30] VITALS: BP 164/67; TEMP 96.7; O2SAT 96
[2024-01-11 07:57] LABS: ALBUMIN 2.9 G/DL (3.2-5.2); CALCIUM LEVEL 7.5 MG/DL (8.3-10.6); CREATININE FOR GFR 2.05 MG/DL (0.55-1.30); GLOMERULAR FILTRATION RATE 25.3 (>39); PHOSPHORUS LEVEL 4.3 MG/DL (2.4-5.1); POTASSIUM SERUM 3.6 MMOL/L (3.5-5.1)
[2024-01-11 09:17] VITALS: BP 184/79
[2024-01-11] MEDS ORDERED: CALC1CAP PO (11:54)
[2024-01-11] MEDS ORDERED: CIPR500T39 PO (11:54)
[2024-01-11] MEDS ORDERED: POTA-151 PO (11:54)
[2024-01-11 11:57] VITALS: BP 157/70; TEMP 96.5; O2SAT 95
[2024-01-11] MEDS ORDERED: CALC1CAP31 PO (11:57)
== END 2024-01-11 14:12 | disposition home or self-care (01) | DRG 683 ==
LOC: M ED 17:33 → M ED INP 01-09 02:22 → M PCU 01-09 14:18
PROVIDERS: ADMIT Family Medicine; ATTEND Family Medicine
DX: N17.9 Acute kidney failure, unspecified (principal); A04.5 Campylobacter enteritis; I13.0 Hypertensive heart and chronic kidney disease with heart failure and stage 1 through stage 4 chronic kidney disease, or unspecified chronic kidney disease; I50.32 Chronic diastolic (congestive) heart failure; E87.20 Acidosis, unspecified; J32.9 Chronic sinusitis, unspecified; N18.30 Chronic kidney disease, stage 3 unspecified; D50.9 Iron deficiency anemia, unspecified; E87.6 Hypokalemia; I35.0 Nonrheumatic aortic (valve) stenosis; E11.22 Type 2 diabetes mellitus with diabetic chronic kidney disease; E83.42 Hypomagnesemia; I48.91 Unspecified atrial fibrillation; E78.5 Hyperlipidemia, unspecified; F41.9 Anxiety disorder, unspecified; F32.A Depression, unspecified; I77.1 Stricture of artery; F17.210 Nicotine dependence, cigarettes, uncomplicated; E83.51 Hypocalcemia; Z79.01 Long term (current) use of anticoagulants; Z79.84 Long term (current) use of oral hypoglycemic drugs; Z79.899 Other long term (current) drug therapy; Z86.711 Personal history of pulmonary embolism; Z88.1 Allergy status to other antibiotic agents

== ENCOUNTER → 2024-05-11 | Outpatient (CLI) | payer MEDICARE ==
[~2024-05-11] MED LIST changes: +ACET650T15 PO; +ALBU8.5H INH; +ALLO300T2 PO; +CALC1CAP PO; +CALC1CAP31 PO; +CHLO25TA PO; +CIPR500T39 PO; +FLON1SPR NARES; +MAGN400T2 PO; +POTA-151 PO
[2024-05-11 20:40] LABS: RSV AMPLIFICATION NEGATIVE (NEGATIVE)
== END ==
LOC: M WUC 13:18
PROVIDERS: ATTEND Nurse Practitioner Adult Health
DX: R05.9 Cough, unspecified (principal); J02.9 Acute pharyngitis, unspecified

== ENCOUNTER → 2024-07-21 | Outpatient (REF) | payer MEDICARE | LOC: M LAB REF 16:16 | PROVIDERS: ATTEND Nurse Practitioner Adult Health | DX: J02.9 Acute pharyngitis, unspecified (principal) ==

== ENCOUNTER → 2024-08-20 | Outpatient (REF) | payer MEDICARE ==
[2024-08-20 19:04] LABS: PERCENT SATURATION 18.3 % (13.2-45.0)
[2024-08-20 19:08] LABS: FERRITIN 83.9 NG/ML (7.3-270.7)
== END ==
LOC: M LAB REF 17:09
PROVIDERS: ATTEND Internal Medicine Nephrology
DX: N18.9 Chronic kidney disease, unspecified (principal); D63.1 Anemia in chronic kidney disease

== ENCOUNTER → 2024-09-01 | Outpatient (CLI) | payer MEDICARE ==
[~2024-09-01] VITALS: Ht 154.9 cm; Wt 73.0 kg
[~2024-09-01] MED LIST changes: +ALBUTEROL SULFATE 2.5MG/0.5ML INH NEB SOLN INH PRN; +EPINEPHrine INJ 1 MG/ML 1ML AMP IM PRN; +diphenhydrAMINE 50MG/ML VIAL IV PRN; +methylPREDNISolone 125MG 2ML VIAL IV PRN
[2024-09-01 13:30] VITALS: BP 160/88; O2SAT 95
[2024-09-01] MEDS: IRON SUCROSE 300 MG in NS 250 ML OVER 90 MIN. IV ONE (13:35)
[2024-09-01 15:20] VITALS: BP 154/76; O2SAT 96
== END ==
LOC: M INFU 13:16
PROVIDERS: ATTEND Internal Medicine Nephrology
DX: N18.9 Chronic kidney disease, unspecified (principal); D63.1 Anemia in chronic kidney disease; Z88.1 Allergy status to other antibiotic agents
CPT/HCPCS: 96365; 96366; J1756

== ENCOUNTER 2024-09-08 10:45 | Outpatient (CLI) | payer MEDICARE ==
[2024-09-08 10:45] VITALS: BP 158/80; O2SAT 97
[~2024-09-08 10:45] MED LIST changes: +NS (Normal Saline) 0.9% 1,000 ML IV SCH
[2024-09-08] MEDS: IRON SUCROSE 300 MG in NS 250 ML IV ONE (11:02)
[2024-09-08 13:00] VITALS: BP 138/88
== END 2024-09-08 12:45 ==
LOC: M INFU 10:45
PROVIDERS: ATTEND Internal Medicine Nephrology
DX: N18.9 Chronic kidney disease, unspecified (principal); D63.1 Anemia in chronic kidney disease
CPT/HCPCS: 96365; J1756

== ENCOUNTER 2024-09-15 11:21 | Outpatient (CLI) | payer MEDICARE ==
[~2024-09-15 11:21] MED LIST changes: +ALBUTEROL SULFATE 2.5MG/0.5ML INH CONCENTRATE NEB SOLN INH PRN; -ALBUTEROL SULFATE 2.5MG/0.5ML INH NEB SOLN INH PRN
[2024-09-15] MEDS ORDERED: IRON SUCROSE 300 MG in NS 250 ML IV ONE (11:30)
[2024-09-15 11:35] VITALS: BP 162/82; O2SAT 97
[2024-09-15] MEDS: IRON SUCROSE 300 MG in NS 250 ML IV ONE (11:47)
[2024-09-15 13:30] VITALS: BP 170/80; O2SAT 97
== END 2024-09-15 13:30 ==
LOC: M INFU 11:21
PROVIDERS: ATTEND Internal Medicine Nephrology
DX: N18.9 Chronic kidney disease, unspecified (principal); D63.1 Anemia in chronic kidney disease; Z88.1 Allergy status to other antibiotic agents
CPT/HCPCS: 96365; 96366; J1756

== ENCOUNTER → 2024-10-18 | Outpatient (REF) | payer MEDICARE ==
[~2024-10-18] MED LIST changes: -ALBUTEROL SULFATE 2.5MG/0.5ML INH CONCENTRATE NEB SOLN INH PRN; -EPINEPHrine INJ 1 MG/ML 1ML AMP IM PRN; -NS (Normal Saline) 0.9% 1,000 ML IV SCH; -diphenhydrAMINE 50MG/ML VIAL IV PRN; -methylPREDNISolone 125MG 2ML VIAL IV PRN
[2024-10-20 19:22] LABS: LDL DIRECT 63 mg/dL (<100)
== END ==
LOC: M LAB REF 17:27
PROVIDERS: ATTEND Nurse Practitioner Adult Health
DX: E78.00 Pure hypercholesterolemia, unspecified (principal)

== ENCOUNTER → 2024-10-18 | Outpatient (REF) | payer MEDICARE ==
[2024-10-18 18:51] LABS: PERCENT SATURATION 30.5 % (13.2-45.0)
== END ==
LOC: M LAB REF 17:26
PROVIDERS: ATTEND Nurse Practitioner Adult Health
DX: D64.9 Anemia, unspecified (principal); E78.00 Pure hypercholesterolemia, unspecified

== ENCOUNTER 2025-03-17 17:27 | Emergency (ER) | payer MEDICARE ==
[~2025-03-17] VITALS: Ht 154.9 cm; Wt 67.8 kg
[~2025-03-17 17:27] MED LIST changes: +ACET-1515 PO; -ACET650T15 PO; +LISI40TA10 PO; -LISI40TA4 PO
[2025-03-17] MEDS ORDERED: AMOX875T2 (17:41)
[2025-03-17 19:09] LABS: BASO # 0.1 10^3/uL (0.0-0.2); BASO % 0.3 % (0.0-1.0); EOS # 0.1 10^3/uL (0.0-0.5); EOS % 0.7 % (0.0-3.0); LYMPH # 0.9 10^3/uL (1.5-5.0); LYMPH % 6.3 % (24.0-44.0); MONO # 0.9 10^3/uL (0.0-0.8); MONO % 5.7 % (2.0-8.0); NEUTROPHILS # 12.8 10^3/uL (1.5-8.5); NEUTROPHILS % 86.3 % (36.0-66.0); PLATELET COUNT, AUTOMATED 194 10^3/uL (150-450)
[2025-03-17 19:27] LABS: ERYTHROCYTE SEDIMENTATION RATE 77 mm/hr (0-30)
[2025-03-17 19:37] LABS: C REACTIVE PROTEIN QUANTITATIV 5.96 MG/DL (<1.0)
[2025-03-17 19:52] LABS: ALT/SGPT 11.0 U/L (7.0-40); AST/SGOT 14.0 U/L (<34); CARBON DIOXIDE LEVEL 18.0 MMOL/L (20-31); CHLORIDE LEVEL 107.0 MMOL/L (98-107); CREATININE FOR GFR 1.92 MG/DL (0.55-1.30); GLOMERULAR FILTRATION RATE 27.2 (>39); POTASSIUM SERUM 3.3 MMOL/L (3.5-5.1); SODIUM LEVEL 139.0 MMOL/L (136-145)
[2025-03-17 20:11] LABS: CALCIUM LEVEL 5.1 MG/DL (8.3-10.6)
[2025-03-17] MEDS: CALCIUM CARBONATE 500 MG CHEW U/D PO ONE (20:36)
[2025-03-17 20:40] VITALS: BP 150/72; TEMP 97.5; O2SAT 97
== END 2025-03-17 21:01 | disposition home or self-care (01) ==
LOC: M ED 17:27
DX: E83.51 Hypocalcemia (principal); M11.261 Other chondrocalcinosis, right knee; M25.461 Effusion, right knee; Z53.9 Procedure and treatment not carried out, unspecified reason; E11.9 Type 2 diabetes mellitus without complications; I10 Essential (primary) hypertension; D50.9 Iron deficiency anemia, unspecified; F41.9 Anxiety disorder, unspecified; I48.91 Unspecified atrial fibrillation; H40.9 Unspecified glaucoma; F17.200 Nicotine dependence, unspecified, uncomplicated; Z79.01 Long term (current) use of anticoagulants; Z79.84 Long term (current) use of oral hypoglycemic drugs; Z79.899 Other long term (current) drug therapy; Z88.2 Allergy status to sulfonamides; Z88.1 Allergy status to other antibiotic agents

== ENCOUNTER → 2025-04-18 | Outpatient (CLI) | payer MEDICARE ==
[~2025-04-18] MED LIST changes: +AMOX875T2
== END ==
LOC: M WUC 14:48
DX: M54.2 Cervicalgia (principal); M48.02 Spinal stenosis, cervical region; M47.812 Spondylosis without myelopathy or radiculopathy, cervical region